=== PATIENT | female | born 1940 | race Caucasian/White ===

== ENCOUNTER 2016-11-02 09:04 | Inpatient (IN) | payer OTHER, MEDICARE ==
[2016-11-02 09:09] VITALS: BMI 34.9
--- NOTE | 2016-11-02 09:14 | PDOC ---
History of Present Illness - General History Source: Patient Exam Limitations: No Limitations <Lachelle Jones - Last Filed: 11/02/16 11:07> - General History Source: Patient, Family Exam Limitations: No Limitations - History of Present Illness Initial Comments: 11/02/16 09:43 The patient is a 76 year old female with a significant past medical history of CHF, and PAF on Coumadin, presenting to the Emergency Department with shortness of breath and cough for one week. The patients son reports that the patient was seen at her PCPs office on Friday for shortness of breath and cough when she was diagnosed with bronchitis and was prescribed antibiotics. The patient admits she has taken 3 days of antibiotics, though she has not taken any of the prescription today. The patients son reports that the patient has shortness of breath exacerbated by walking normally, though her shortness of breath has been worse over the past week. The patients son admits that the patient has orthopnea, and sleeps in a specially reclined chair, though she has not been able to sleep comfortably this past week. The patient admits that the cough is sometimes productive, producing phelgm. The patient denies any chest pain. The patient is compliant with her medications. The patient denies palpitations, chest pain, and diaphoresis. Patient denies fever, or chills. Patient denies nausea, vomiting, and diarrhea. Patient denies back pain, or neck pain. PCP: Dr. Jennings [phone] <Ibeth Lee - Last Filed: 11/02/16 11:12> - General Chief Complaint: Respiratory Stated Complaint: COUGH Time Seen by Provider: 11/02/16 09:13 Past History - Past Medical History Anemia: Yes Cardiac Disorders: Yes (A-FIB, CAD) CHF: Yes GI Disorders: Yes (gerd, hernia s/p repair) HTN: Yes Hypercholesterolemia: Yes - Surgical History Abdominal Surgery: Yes (HERNIA) Cholecystectomy: Yes - Psycho/Social/Smoking Cessation Hx Anxiety: No Suicidal Ideation: No Smoking History: Never smoked Have you smoked in the past 12 months: No Hx Alcohol Use: No Drug/Substance Use Hx: No Substance Use Type: None Hx Substance Use Treatment: No <Lachelle Jones - Last Filed: 11/02/16 11:07> <Ibeth Lee - Last Filed: 11/02/16 11:12> - Past Medical History Allergies/Adverse Reactions: Allergies Allergy/AdvReac Type Severity Reaction Status Date / Time ibuprofen [From Advil] Allergy Unknown Verified 11/02/16 09:06 Home Medications: Ambulatory Orders Diltiazem HCl [Diltiazem 24Hr ER] 120 mg PO BID 10/25/13 Lisinopril [Prinivil] 40 mg PO DAILY 07/01/15 Furosemide [Lasix -] 40 mg PO BID 07/23/15 Potassium Chloride [Klor-Con M10] 10 meq PO DAILY 08/31/16 Ranitidine [Zantac -] 150 mg PO BID 08/31/16 Ferrous Sulfate [Feosol] 325 mg PO BID 09/01/16 Folic Acid 800 mg PO DAILY 09/01/16 Acetaminophen [Tylenol .Regular Strength -] 650 mg PO Q4H PRN #0 tablet Atorvastatin Ca [Lipitor] 10 mg PO HS tablet 09/02/16 Bacitracin/Polymyxin Ointment [Polysporin Ointment -] 1 applic TP BID tube Isosorbide Mononitrate [Imdur -] 30 mg PO DAILY 09/02/16 Lactulose (Oral Use) [Cephulac -] 20 gm PO DAILY 09/02/16 Metoprolol Succinate [Toprol XL -] 25 mg PO DAILY 09/02/16 Warfarin Na [Coumadin -] 2.5 mg PO SuTh@1800 tablet 09/02/16 Warfarin Na [Coumadin -] 5 mg PO MoTuWeFrSa@1800 tablet 09/02/16 Albuterol Sulfate [Proair Respiclick] 90 mcg IH QID 11/02/16 Levofloxacin [Levaquin -] 500 mg PO DAILY 11/02/16 Review of Systems - Review of Systems Able to Perform ROS?: Yes Comments:: 11/02/16 09:43 GENERAL/CONSTITUTIONAL: No: fever, chills, weakness, loss of appetite. HEAD, EYES, EARS, NOSE AND THROAT: No: change in vision, ear pain, discharge, sore throat, throat swelling. CARDIOVASCULAR: No: chest pain, lightheadedness, palpitations, syncope RESPIRATORY: No: wheezing, hemoptysis, stridor. Present: + productive cough, + shortness of breath, + orthopnea (chronic) GASTROINTESTINAL: No: nausea, vomiting, abdominal cramping, diarrhea, rectal bleeding, constipation. GENITOURINARY: No: dysuria, hematuria, frequency, urgency, flank pain. MUSCULOSKELETAL: No: back pain, neck pain, joint pain, muscle swelling or pain SKIN: No: lesions, pallor, rash or easy bruising. NEUROLOGIC: No: headache, vertigo, paresthesias, weakness ENDOCRINE: No: unexplained weight gain or loss HEMATOLOGIC/LYMPHATIC: No: anemia, easy bleeding, swelling nodes <Ibeth Lee - Last Filed: 11/02/16 11:12> *Physical Exam - Vital Signs Last Vital Signs Temp Pulse Resp BP Pulse Ox 98.2 F 70 18 156/75 92 L 11/02/16 09:05 11/02/16 09:05 11/02/16 09:05 11/02/16 09:05 11/02/16 09:05 <Lachelle Jones - Last Filed: 11/02/16 11:07> - Vital Signs Last Vital Signs Temp Pulse Resp BP Pulse Ox 98.2 F 70 18 156/75 92 L 11/02/16 09:05 11/02/16 09:05 11/02/16 09:05 11/02/16 09:05 11/02/16 09:05 - Physical Exam Comments: 11/02/16 09:44 GENERAL: The patient is in no acute distress. HEAD: Normal with no signs of trauma. EYES: PERRLA, EOMI, sclera anicteric, conjunctiva clear. ENT: Ears normal, nares patent, oropharynx clear without exudates. Moist mucous membranes. NECK: Normal range of motion, supple without lymphadenopathy, JVD, or masses. LUNGS: Inspiratory and expiratory rhonchi in all bloom. No wheezes, and no crackles. HEART: Heart sounds difficult to appreciate due to diffuse rhonchi. ABDOMEN: Soft, nontender, normoactive bowel sounds. No guarding, no rebound. EXTREMITIES: No lower extremity edema. No pain to lower extremities. Normal range of motion. No clubbing or cyanosis. No erythema, or tenderness. NEUROLOGICAL: Cranial nerves II through XII grossly intact. Normal speech. No focal neurological deficits. MUSCULOSKELETAL: Back nontender to palpation, no CVA tenderness SKIN: Warm, Dry, normal turgor, no rashes or lesions noted. <Ibeth Lee - Last Filed: 11/02/16 11:12> Heart Score/ECG Review #1 ECG reviewed & interpreted by me at: 10:23 11/02/16 10:23 Twelve-lead EKG was performed and reviewed by me. Afib rate of 65. The axis is normal. The intervals are normal - QRS: 86ms, QTc:426ms. There are no ST elevations. Artifact at baseline. T wave flattening <Lachelle Jones - Last Filed: 11/02/16 11:07> ED Treatment Course - LABORATORY CBC & Chemistry Diagram: 11/02/16 09:36 11/02/16 09:36 <Lachelle Jones - Last Filed: 11/02/16 11:07> - LABORATORY CBC & Chemistry Diagram: 11/02/16 09:36 11/02/16 09:36 - RADIOLOGY Radiograph Interpretation: 11/02/16 11:11 Chest XRay: As reviewed by Dr. Riley Patel IMPRESSION: Minimal posterior blunting which may indicate some focal atelectasis and/or fluid at the left base. <Ibeth Lee - Last Filed: 11/02/16 11:12> Medical Decision Making - Medical Decision Making 11/02/16 09:14 A portion of this note was documented by scribe services under my direction. I have reviewed the details of the note, within reason, and agree with the documentation with the following case summary and management plan written by me. Nursing documentation reviewed and incorporated into medical decision making 11/02/16 09:55 This is a 76 yo F with a history of HTN, HLD, CHF, Afib on coumadin, Anemia who presents to the ER with a complaint of 1 week of congestion, cough and shortness of breath. At her baseline, this patient as difficulty walking short distances and is ambulatory 100ft and around her home Over the past week, her mobility significantly decreased due to congestion She was seen by her pmd in the office who started Levaquin and gave Albuterol This has not helped No fevers Cough is non productive Pt denies chest pain Pt is compliant with diuretic use 11/02/16 09:57 DD: Pneumonia, Bronchitis, reactive airways, CHF, ACS Will do labs, include cultures Will do CXR PA and Lateral Will re assess 11/02/16 10:59 Laboratory Tests 11/02/16 11/02/16 09:36 09:36 WBC 6.0 Hgb 13.4 D Hct 40.7 Plt Count 193 Neutrophils % 68.2 Lymphocytes % 17.6 Sodium 141 Potassium 3.4 L Carbon Dioxide 32 BUN 17 D Creatinine 0.7 Random Glucose 75 D Creatine Kinase 66 Troponin I < 0.02 CXR: cardiomegaly, possible posterior blunting 11/02/16 11:[address] Dobson He would like this patient admitted would like to add a consult for Aleksandar Also requests Lasix 11/02/16 11:08 <Lachelle Jones - Last Filed: 11/02/16 11:07> - Medical Decision Making 11/02/16 11:03 Dr. Jennings was called at his office at 11:02, was instructed to call his cell. Cell was called at [phone] at 11:03, Dr. Jennings spoke to Dr. Jones about the patient's care. <Ibeth Lee - Last Filed: 11/02/16 11:12> *DC/Admit/Observation/Transfer - Discharge Dispostion Admit: Yes <Lachelle Jones - Last Filed: 11/02/16 11:07> - Attestations Scribe Attestion: 11/02/16 09:44 Documentation prepared by Ibeth Lee, acting as medical director/head team physician for Lachelle Jones MD/DO. <Ibeth Lee - Last Filed: 11/02/16 11:12> Diagnosis at time of Disposition: Shortness of breath - Discharge Dispostion Condition at time of disposition: Stable - Referrals Referrals: Benson Jennings MD [Primary Care Provider] -
[2016-11-02] MEDS ORDERED: methylPREDNISolone NA SUCC 125 MG/2 ML VIAL IVPB ONE (09:26)
[2016-11-02] MEDS ORDERED: ALBUTEROL SO4 0.083% IH SOL 2.5 MG/3 ML VIAL.NEB. NEB ONE (09:26)
[2016-11-02] MEDS ORDERED: ALBUTEROL SO4 2.5/IPRATROPIUM 0.5 INH SOL 3 ML VIAL.NEB. NEB ONE (09:27)
[2016-11-02] MEDS ORDERED: methylPREDNISolone NA SUCC 125 MG/2 ML VIAL ONE (09:27)
[2016-11-02 09:50] LABS: BASOPHIL 0.7 % (0-2.0); EOSINOPHIL 1.8 % (0-4.5); MCH 31.5 pg (25.7-33.7); MCHC 32.8 g/dl (32.0-36.0); MEAN CELL VOLUME 95.9 fl (80-96); MEAN PLT VOLUME 7.7 fl (7.5-11.1); NEUTROPHILS 68.2 % (42.8-82.8); PLATELET COUNT 193 K/MM3 (134-434); RDW 16.7 % (11.6-15.6)
[2016-11-02 10:15] LABS: ALBUMIN 4.1 g/dl (3.4-5.0); ANION GAP 7 (8-16); BILIRUBIN,TOTAL 0.7 mg/dL (0.2-1.0); CO2 32 mmol/L (21-32); COCKROFT - GAULT 90.5845; CREATININE 0.7 mg/dL (0.55-1.02); GLUCOSE,RANDOM 75 mg/dL (74-106); SGOT/AST 12 U/L (15-37); SGPT/ALT 16 U/L (12-78); TOT PROT 7.9 g/dl (6.4-8.2)
[2016-11-02 10:18] LABS: ALK PHOS 80 U/L (45-117); TROPONIN I < 0.02 ng/ml (0.00-0.05)
[2016-11-02 11:02] LABS: INR 2.44 (0.82-1.09); PROTHROMBIN TIME (PATIENT) 27.3 SEC (9.98-11.88)
[2016-11-02] MEDS ORDERED: LEVOFLOXACIN 500 MG TABLET (FP) PO ONE (11:08)
[2016-11-02] MEDS ORDERED: FUROSEMIDE 40 MG/4 ML INJECTABLE VIAL IVPB ONE (11:09)
[2016-11-02] MEDS ORDERED: LEVOFLOXACIN 500 MG TABLET (FP) ONE (11:25)
[2016-11-02] MEDS ORDERED: FUROSEMIDE 40 MG/4 ML INJECTABLE VIAL ONE (11:25)
[2016-11-02] MEDS: ALBUTEROL SO4 0.083% IH SOL 2.5 MG/3 ML VIAL.NEB. NEB SCH ×3 (14:26→23:22)
[2016-11-02] MEDS ORDERED: POTASSIUM CHLORIDE TABS 20 MEQ TABLET.ER (FP) PO ONE (14:28)
[2016-11-02] MEDS: POTASSIUM CHLORIDE TABS 20 MEQ TABLET.ER (FP) PO SCH (14:31)
[2016-11-02] MEDS ORDERED: FUROSEMIDE 40 MG/4 ML INJECTABLE VIAL IVPUSH STA (15:06)
[2016-11-02] MEDS: WARFARIN NA 5 MG TABLET (UD) PO SCH (17:38)
[2016-11-02] MEDS: ISOSORBIDE MONONITRATE 30 MG TAB.SR.24H (FP) PO SCH (17:38)
[2016-11-02] MEDS ORDERED: CEFTRIAXONE 1 GM in DEXTROSE 5%-WATER - 50 ML IVPB SCH (18:00)
--- NOTE | 2016-11-02 21:54 | HP ---
Admitting History and Physical - Primary Care Physician PCP: Benson Jennings - Admission Chief Complaint: Severe SOB and wheezing History of Present Illness: Was seen in my office two days ago with cough and bilateral wheezing without fever and was started on Levaquin 500mg PO and Proair inhalor. But she did not improve and came to ED today and was treated with IV Levaquin and IV Solumedrol and inhalor and was admitted for further management. She is a known case with severe CHF due to severe Mitral regurg with AFIB and has been admitted in the past for CHF. History Source: Patient Limitations to Obtaining History: No Limitations - Past Medical History Cardiovascular: Yes: AFIB, HTN, Hyperlipdemia, Mitral Insufficiency, Pulmonary Hypertension Gastrointestinal: Yes: GERD, Hiatal Hernia, Other (abdominal pain mainly in upper abd related to intestinal adhesions) Hepatobiliary: Yes: Cholecystitis, Other (s/p cholecystectomy) Musculoskeletal: Yes: Chronic low back pain, Osteoarthritis ENT: Yes: Allergic Rhinitis - Past Surgical History Past Surgical History: Yes: None, Cholecystectomy, Colonoscopy, Hernia Repair - Advance Directives Advance Directives: Yes: Health Care Proxy - Smoking History Smoking history: Never smoked Have you smoked in the past 12 months: No - Alcohol/Substance Use Hx Alcohol Use: No History of Substance Use: reports: None - Social History Usual Living Arrangement: Yes: Alone ADL: Independent History of Recent Travel: No Home Medications - Allergies Allergies/Adverse Reactions: Allergies Allergy/AdvReac Type Severity Reaction Status Date / Time ibuprofen [From Advil] Allergy Unknown Verified 11/02/16 09:06 - Home Medications Home Medications: Ambulatory Orders Diltiazem HCl [Diltiazem 24Hr ER] 120 mg PO BID 10/25/13 Lisinopril [Prinivil] 40 mg PO DAILY 07/01/15 Furosemide [Lasix -] 40 mg PO BID 07/23/15 Potassium Chloride [Klor-Con M10] 10 meq PO DAILY 08/31/16 Ferrous Sulfate [Feosol] 325 mg PO BID 09/01/16 Folic Acid 800 mg PO DAILY 09/01/16 Acetaminophen [Tylenol .Regular Strength -] 650 mg PO Q4H PRN #0 tablet Atorvastatin Ca [Lipitor] 10 mg PO HS tablet 09/02/16 Isosorbide Mononitrate [Imdur -] 30 mg PO DAILY 09/02/16 Metoprolol Succinate [Toprol XL -] 25 mg PO DAILY 09/02/16 Warfarin Na [Coumadin -] 2.5 mg PO SuTh@1800 tablet 09/02/16 Warfarin Na [Coumadin -] 5 mg PO MoTuWeFrSa@1800 tablet 09/02/16 Albuterol Sulfate [Proair Respiclick] 90 mcg IH QID 11/02/16 Lactulose (Oral Use) [Cephulac -] 20 gm PO DAILY PRN 11/02/16 Levofloxacin [Levaquin -] 500 mg PO DAILY 11/02/16 Family Disease History - Family Disease History Family Disease History: Heart Disease: Father, Mother Review of Systems - Review of Systems Constitutional: reports: Weakness Eyes: reports: No Symptoms HENT: reports: No Symptoms Neck: reports: No Symptoms Cardiovascular: reports: Palpitations, Shortness of Breath Respiratory: reports: Cough, SOB, Wheezing Gastrointestinal: reports: Abdominal Pain Genitourinary: reports: No Symptoms Breasts: reports: No Symptoms Reported Musculoskeletal: reports: Back Pain, Joint Pain Neurological: reports: No Symptoms Endocrine: reports: No Symptoms Hematology/Lymphatic: reports: No Symptoms Psychiatric: reports: No Symptoms Physical Examination Vital Signs: Vital Signs Temperature 98.2 F 11/02/16 16:28 Pulse Rate 85 11/02/16 16:28 Respiratory Rate 22 11/02/16 17:00 Blood Pressure 169/85 11/02/16 16:28 O2 Sat by Pulse Oximetry (%) 96 11/02/16 17:00 Constitutional: Yes: Anxious, Moderate Distress Eyes: Yes: WNL, Conjunctiva Clear, EOM Intact HENT: Yes: WNL Neck: Yes: WNL Cardiovascular: Yes: Pulse Irregular, S1, S2, Varicosities Respiratory: Yes: On Nasal O2, Wheezes Gastrointestinal: Yes: Normal Bowel Sounds, Soft Renal/: Yes: WNL Musculoskeletal: Yes: Joint Stiffness Edema: Yes Edema: LLE: 2+, RLE: 2+ Peripheral Pulses WNL: Yes Neurological: Yes: Alert, Oriented, Cran Nerves II-XII Intact ...Motor Strength: WNL Psychiatric: Yes: Alert, Oriented Imaging - Results Chest X-ray: Image Reviewed Problem List - Problems (1) Hyperlipidemia Code(s): E78.5 - HYPERLIPIDEMIA, UNSPECIFIED (2) Hypertension Code(s): I10 - ESSENTIAL (PRIMARY) HYPERTENSION Qualifiers: Hypertension type: essential hypertension Qualified Code(s): I10 - Essential (primary) hypertension (3) Obesity (BMI 30-39.9) Code(s): E66.9 - OBESITY, UNSPECIFIED (4) Venous insufficiency Assessment/Plan: Moderate varicosities with stasis dermatitis Code(s): I87.2 - VENOUS INSUFFICIENCY (CHRONIC) (PERIPHERAL) (5) Acute asthmatic bronchitis Assessment/Plan: Bilateral wheezing and ronchi with moderate resp. distress Code(s): J45.909 - UNSPECIFIED ASTHMA, UNCOMPLICATED (6) Atrial fib/flutter, transient Code(s): FPL0234 - (7) Anticoagulated on Coumadin Code(s): Z51.81 - ENCOUNTER FOR THERAPEUTIC DRUG LEVEL MONITORING Z79.01 - TIMBER REPAIRER (CURRENT) USE OF ANTICOAGULANTS (8) Atrial fibrillation Assessment/Plan: HR well controlled Code(s): I48.91 - UNSPECIFIED ATRIAL FIBRILLATION Qualifiers: Atrial fibrillation type: chronic Qualified Code(s): I48.2 - Chronic atrial fibrillation (9) CHF (NYHA class II, ACC/AHA stage C) Assessment/Plan: Known case of severe MR with BNP of 2500 to cont. IV Lasix Code(s): I50.9 - HEART FAILURE, UNSPECIFIED Assessment/Plan Continue IV antibiotics with Rocephin and Zithromax Continue IV Solu-Medrol Continue bronchodilators, Continue IV Lasix.
[2016-11-02] MEDS: methylPREDNISolone NA SUCC 40 MG/1 ML VIAL IVPB SCH (21:57)
[2016-11-02] MEDS: LISINOPRIL 20 MG TABLET (FP) PO SCH (21:57)
[2016-11-03] MEDS: LACTULOSE 20 GM/30 ML UDC (FOR ORAL USE ONLY) PO ONE ×2 (00:21→00:30)
[2016-11-03] MEDS: methylPREDNISolone NA SUCC 40 MG/1 ML VIAL IVPB SCH ×4 (03:38→20:55)
[2016-11-03] MEDS: FUROSEMIDE 40 MG/4 ML INJECTABLE VIAL IVPUSH SCH ×2 (05:55→14:43)
[2016-11-03] MEDS: ALBUTEROL SO4 0.083% IH SOL 2.5 MG/3 ML VIAL.NEB. NEB SCH ×3 (06:12→17:28)
[2016-11-03] MEDS: ACETAMINOPHEN 325 MG TABLET (FP) PO PRN (07:21)
[2016-11-03 08:39] LABS: INR 2.64 (0.82-1.09); PROTHROMBIN TIME (PATIENT) 29.6 SEC (9.98-11.88)
[2016-11-03 09:00] LABS: ALBUMIN 3.7 g/dl (3.4-5.0); ALK PHOS 70 U/L (45-117); ANION GAP 7 (8-16); BILIRUBIN,TOTAL 0.8 mg/dL (0.2-1.0); CALCIUM 8.7 mg/dL (8.5-10.1); CO2 34 mmol/L (21-32); CREATININE 0.7 mg/dL (0.55-1.02); GLUCOSE,RANDOM 164 mg/dL (74-106); SGOT/AST 14 U/L (15-37); SGPT/ALT 18 U/L (12-78); TOT PROT 7.3 g/dl (6.4-8.2)
--- NOTE | 2016-11-03 09:01 | PN ---
Progress Note, Physician Chief Complaint: Coverage for Aleksandar. Well known to me from prior coverage, recent discharge for CHF 08/2016 at which time I covered her as well. 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 Denies fevers, chills. Denies chest pain or palps. + PND and orthopnea. Received IV Lasix yesterday with improvement in symptoms. - Current Medication List Current Medications: Active Medications Acetaminophen (Tylenol -) 650 mg PO Q4H PRN PRN Reason: FEVER OR PAIN Last Admin: 11/03/16 07:21 Dose: 650 mg Albuterol Sulfate (Ventolin 0.083% Nebulizer Soln -) 1 amp NEB QIDR [facility] Last Admin: 11/03/16 06:12 Dose: 1 amp Diltiazem HCl (Cardizem Cd -) 120 mg PO BID [facility] Last Admin: 11/02/16 22:39 Dose: 120 mg Furosemide (Lasix Injection -) 40 mg IVPUSH BID@0600,1400 [facility] Last Admin: 11/03/16 05:55 Dose: 40 mg Azithromycin (Zithromax 500mg Ivpb (Pre-Docked)) 250 mls @ 250 mls/hr IVPB DAILY [facility] Ceftriaxone Sodium (Rocephin 1gm Ivpb (Pre-Docked)) 50 mls @ 100 mls/hr IVPB DAILY [facility] Isosorbide Mononitrate (Imdur -) 30 mg PO DAILY [facility] Last Admin: 11/02/16 17:38 Dose: 30 mg Lisinopril (Prinivil) 20 mg PO BID [facility] Last Admin: 11/02/16 21:57 Dose: 20 mg Methylprednisolone Sodium Succinate (Solu-Medrol -) 40 mg IVPB Q6H-IV [facility] Last Admin: 11/03/16 03:38 Dose: 40 mg Potassium Chloride (K-Dur -) 20 meq PO DAILY [facility] Last Admin: 11/02/16 14:31 Dose: 20 meq Warfarin Sodium (Coumadin -) 5 mg PO DAILY@1800 [facility] Last Admin: 11/02/16 17:38 Dose: 5 mg - Objective Vital Signs: Vital Signs Temperature 98.6 F 11/03/16 06:00 Pulse Rate 90 11/03/16 06:00 Respiratory Rate 22 11/03/16 06:00 Blood Pressure 150/88 11/03/16 06:00 O2 Sat by Pulse Oximetry (%) 94 L 11/02/16 21:00 Constitutional: Yes: Calm Eyes: Yes: Conjunctiva Clear Neck: Yes: Trachea Midline Cardiovascular: Yes: Pulse Irregular Respiratory: Yes: Other (rales at bases bilaterally) Gastrointestinal: Yes: Soft Edema: Yes Edema: LLE: 2+ (venous stasis), RLE: 2+ (venous stasis) Neurological: Yes: Alert, Oriented ...Motor Strength: WNL Labs: INR, PTT INR 2.64 (0.82-1.09) H 11/03/16 05:55 Laboratory Tests 08/31/16 09/01/16 11/02/16 11:45 06:30 09:36 WBC 6.0 Hgb 13.4 D Hct 40.7 Plt Count 162 193 INR Sodium Potassium BUN Creatinine 0.6 Creat Clearance w eGFR ALT Alkaline Phosphatase Creatine Kinase Troponin I C-Reactive Protein B-Natriuretic Peptide Albumin 11/02/16 11/02/16 11/03/16 09:36 16:44 05:55 WBC Hgb Hct Plt Count INR 2.64 H Sodium 141 Potassium 3.4 L BUN 17 D Creatinine 0.7 Creat Clearance w eGFR > 60 ALT 16 Alkaline Phosphatase 80 Creatine Kinase 66 Troponin I < 0.02 C-Reactive Protein 1.8 H D B-Natriuretic Peptide 2572.60 H Albumin 4.1 - ....Imaging Chest X-ray: Report Reviewed, Image Reviewed EKG: Image Reviewed (AF at 65bpm w/ NSST changes) Other: Other (Echo: 08/2016 (see HPI) TELE: AF, with periods of RVR this AM into 140s, no pauses) Assessment/Plan IMP: Permanent AF, with RVR (analytical lab analyst rates are uncontrolled) Severe MR Chronic diastolic CHF, acute decompensation REC: 1. AF: rates suboptimally controlled -INR therapeutic, continue coumadin -Would add back Toprol XL 25 mg daily as LV function is normal, for added rate control. -If Toprol is not tolerated well for some reason, then can add digoxin 0.125mg daily -minimize use albuterol if possible 2. Severe, eccentric MR: -noted on TTE 08/2016 -Consider MEHNAZ and evaluation for MVR as outpatient 3. Chronic diastolic CHF: -acutely decompensated in setting of severe MR and AF rates which appear suboptimally controlled -Agree w/ IV Lasix -Lisinopril for afterload reduction -Aim for improved heart rate control either by adding back Toprol or dig -Continue tele -Would consider outpatient MEHNAZ and evaluation for MVR when euvolemic given frequent CHF decompensations.
[2016-11-03] MEDS ORDERED: PT OWN MED DRAWER 7, Y5N ONE (09:32)
[2016-11-03] MEDS: POTASSIUM CHLORIDE TABS 20 MEQ TABLET.ER (FP) PO SCH (09:38)
[2016-11-03] MEDS: LISINOPRIL 20 MG TABLET (FP) PO SCH ×2 (09:38→21:01)
[2016-11-03] MEDS: ISOSORBIDE MONONITRATE 30 MG TAB.SR.24H (FP) PO SCH (09:38)
[2016-11-03] MEDS: CEFTRIAXONE 50 ML IVPB SCH (09:39)
[2016-11-03] MEDS: AZITHROMYCIN IVPB 250 ML IVPB SCH (14:43)
--- NOTE | 2016-11-03 14:54 | CONSULT ---
Consult Consult Specialty:: Infectious Diseases Referred by:: Dr. Dobson Reason for Consultation:: Cough - History of Present Illness Chief Complaint: Cough,SOB History of Present Illness: Patient is a 76 year old female admitted with cough and SOB. She had been on PO Abx for a few days without improvement. She continued to have SOB, cough and the decision to admit her was made. - History Source History Provided By: Patient - Past Medical History Cardio/Vascular: Yes: AFIB, HTN, Hyperlipdemia, Mitral Insufficiency, Pulmonary Hypertension Gastrointestinal: Yes: GERD, Hiatal Hernia, Other (abdominal pain mainly in upper abd related to intestinal adhesions) Hepatobiliary: Yes: Cholecystitis, Other (s/p cholecystectomy) ...: No Musculoskeletal: Yes: Chronic low back pain, Osteoarthritis ENT: Yes: Allergic Rhinitis Endocrine: Yes: Hypothyroidism - Past Surgical History Past Surgical History: Yes: None, Cholecystectomy, Colonoscopy, Hernia Repair - Alcohol/Substance Use Hx Alcohol Use: No History of Substance Use: reports: None - Smoking History Smoking history: Never smoked Have you smoked in the past 12 months: No - Social History Usual Living Arrangement: With Spouse ADL: Independent History of Recent Travel: No Home Medications - Allergies Allergies/Adverse Reactions: Allergies Allergy/AdvReac Type Severity Reaction Status Date / Time ibuprofen [From Advil] Allergy Unknown Verified 11/02/16 09:06 - Home Medications Home Medications: Ambulatory Orders Diltiazem HCl [Diltiazem 24Hr ER] 120 mg PO BID 10/25/13 Lisinopril [Prinivil] 40 mg PO DAILY 07/01/15 Furosemide [Lasix -] 40 mg PO BID 07/23/15 Potassium Chloride [Klor-Con M10] 10 meq PO DAILY 08/31/16 Ferrous Sulfate [Feosol] 325 mg PO BID 09/01/16 Folic Acid 800 mg PO DAILY 09/01/16 Acetaminophen [Tylenol .Regular Strength -] 650 mg PO Q4H PRN #0 tablet Atorvastatin Ca [Lipitor] 10 mg PO HS tablet 09/02/16 Isosorbide Mononitrate [Imdur -] 30 mg PO DAILY 09/02/16 Metoprolol Succinate [Toprol XL -] 25 mg PO DAILY 09/02/16 Warfarin Na [Coumadin -] 2.5 mg PO SuTh@1800 tablet 09/02/16 Warfarin Na [Coumadin -] 5 mg PO MoTuWeFrSa@1800 tablet 09/02/16 Albuterol Sulfate [Proair Respiclick] 90 mcg IH QID 11/02/16 Lactulose (Oral Use) [Cephulac -] 20 gm PO DAILY PRN 11/02/16 Levofloxacin [Levaquin -] 500 mg PO DAILY 11/02/16 Family Disease History - Family Disease History Family Disease History: Heart Disease: Father, Mother Review of Systems - Review of Systems Constitutional: denies: Chills, Fever Respiratory: reports: Cough, SOB Physical Exam Vital Signs: Vital Signs Temperature 99.3 F 11/03/16 09:00 Pulse Rate 80 11/03/16 11:08 Respiratory Rate 22 11/03/16 09:00 Blood Pressure 128/66 11/03/16 09:00 O2 Sat by Pulse Oximetry (%) 95 11/03/16 11:08 Constitutional: Yes: Well Nourished Eyes: Yes: PERRL HENT: Yes: Normocephalic Neck: Yes: Supple Cardiovascular: Yes: Pulse Irregular Respiratory: Yes: Rhonchi, Wheezes Gastrointestinal: Yes: Normal Bowel Sounds Labs: CBC, BMP 11/03/16 05:55 Imaging - Results Chest X-ray: Report Reviewed Assessment/Plan Pt with Hx AF, HFpEF admitted with cough, SOB. Acute exacerbation Bronchitis Agree CTX + Azithromycin Treat total 7-10 days Seth c/s for fever > 101 Can transition to PO in 48-72 hrs
[2016-11-03] MEDS: WARFARIN NA 5 MG TABLET (UD) PO SCH (17:52)
--- NOTE | 2016-11-03 20:45 | PN ---
Progress Note, Physician History of Present Illness: Feels better but still with wheezing, sputum is less. Denies any chest pain or PND - Current Medication List Current Medications: Active Medications Acetaminophen (Tylenol -) 650 mg PO Q4H PRN PRN Reason: FEVER OR PAIN Last Admin: 11/03/16 07:21 Dose: 650 mg Albuterol Sulfate (Ventolin 0.083% Nebulizer Soln -) 1 amp NEB QIDR [facility] Last Admin: 11/03/16 17:28 Dose: 1 amp Diltiazem HCl (Cardizem Cd -) 120 mg PO BID [facility] Last Admin: 11/03/16 09:38 Dose: 120 mg Furosemide (Lasix Injection -) 40 mg IVPUSH BID@0600,1400 [facility] Last Admin: 11/03/16 14:43 Dose: 40 mg Azithromycin (Zithromax 500mg Ivpb (Pre-Docked)) 250 mls @ 250 mls/hr IVPB DAILY [facility] Last Admin: 11/03/16 14:43 Dose: 250 mls/hr Ceftriaxone Sodium (Rocephin 1gm Ivpb (Pre-Docked)) 50 mls @ 100 mls/hr IVPB DAILY [facility] Last Admin: 11/03/16 09:39 Dose: 100 mls/hr Isosorbide Mononitrate (Imdur -) 30 mg PO DAILY [facility] Last Admin: 11/03/16 09:38 Dose: 30 mg Lisinopril (Prinivil) 20 mg PO BID [facility] Last Admin: 11/03/16 09:38 Dose: 20 mg Methylprednisolone Sodium Succinate (Solu-Medrol -) 40 mg IVPB Q6H-IV [facility] Last Admin: 11/03/16 14:42 Dose: 40 mg Potassium Chloride (K-Dur -) 20 meq PO DAILY [facility] Last Admin: 11/03/16 09:38 Dose: 20 meq Warfarin Sodium (Coumadin -) 5 mg PO DAILY@1800 [facility] Last Admin: 11/03/16 17:52 Dose: 5 mg - Objective Vital Signs: Vital Signs Temperature 98.3 F 11/03/16 17:00 Pulse Rate 95 H 11/03/16 17:00 Respiratory Rate 20 11/03/16 17:00 Blood Pressure 137/70 11/03/16 17:00 O2 Sat by Pulse Oximetry (%) 95 11/03/16 11:08 Constitutional: Yes: Calm, Mild Distress Eyes: Yes: Conjunctiva Clear, EOM Intact HENT: Yes: WNL Neck: Yes: Supple Cardiovascular: Yes: Pulse Irregular, S1, S2 Respiratory: Yes: On Nasal O2, Rhonchi, Wheezes Gastrointestinal: Yes: Normal Bowel Sounds, Soft Genitourinary: Yes: WNL Musculoskeletal: Yes: Joint Stiffness Extremities: Yes: WNL Edema: No Peripheral Pulses WNL: Yes Integumentary: Yes: WNL Neurological: Yes: Alert, Oriented, Cran Nerves II-XII Intact ...Motor Strength: WNL Psychiatric: Yes: Alert, Oriented Labs: CBC, BMP 11/03/16 05:55 INR, PTT INR 2.64 (0.82-1.09) H 11/03/16 05:55 - ....Imaging Chest X-ray: Report Reviewed, Image Reviewed Problem List - Problems (1) Hyperlipidemia Code(s): E78.5 - HYPERLIPIDEMIA, UNSPECIFIED (2) Hypertension Code(s): I10 - ESSENTIAL (PRIMARY) HYPERTENSION Qualifiers: Hypertension type: essential hypertension Qualified Code(s): I10 - Essential (primary) hypertension (3) Obesity (BMI 30-39.9) Code(s): E66.9 - OBESITY, UNSPECIFIED (4) Venous insufficiency Code(s): I87.2 - VENOUS INSUFFICIENCY (CHRONIC) (PERIPHERAL) (5) Acute asthmatic bronchitis Assessment/Plan: Seen by Dr.Bonoan BABIN who concurs with ABCs coverage. Continues to have wheezes and ronchi Code(s): J45.909 - UNSPECIFIED ASTHMA, UNCOMPLICATED (6) Atrial fib/flutter, transient Code(s): [id number] - (7) Anticoagulated on Coumadin Code(s): Z51.81 - ENCOUNTER FOR THERAPEUTIC DRUG LEVEL MONITORING Z79.01 - LEAD [employer]CTION [employer]PERVISOR (CURRENT) USE OF ANTICOAGULANTS (8) Atrial fibrillation Assessment/Plan: HR well controlled with DiltiazemCD and INR therapeutic Code(s): I48.91 - UNSPECIFIED ATRIAL FIBRILLATION Qualifiers: Atrial fibrillation type: chronic Qualified Code(s): I48.2 - Chronic atrial fibrillation (9) CHF (NYHA class II, ACC/AHA stage C) Assessment/Plan: Chest Xray shows severe cardiomegaly but no congestion BNP markedly elevated to 2500 Code(s): I50.9 - HEART FAILURE, UNSPECIFIED Assessment/Plan Cultures are negative so far, will continue IV steroids, IV Lasix. Will continue IV Rocephin and Zithromax
[2016-11-04] MEDS: methylPREDNISolone NA SUCC 40 MG/1 ML VIAL IVPB SCH ×4 (02:27→21:41)
[2016-11-04] MEDS: FUROSEMIDE 40 MG/4 ML INJECTABLE VIAL IVPUSH SCH ×2 (06:38→14:20)
[2016-11-04] MEDS: ALBUTEROL SO4 0.083% IH SOL 2.5 MG/3 ML VIAL.NEB. NEB SCH ×4 (06:43→18:35)
[2016-11-04] MEDS: ISOSORBIDE MONONITRATE 30 MG TAB.SR.24H (FP) PO SCH (09:52)
[2016-11-04] MEDS: POTASSIUM CHLORIDE TABS 20 MEQ TABLET.ER (FP) PO SCH (09:52)
[2016-11-04] MEDS: LISINOPRIL 20 MG TABLET (FP) PO SCH ×2 (09:52→21:41)
[2016-11-04] MEDS: AZITHROMYCIN IVPB 250 ML IVPB SCH (09:53)
[2016-11-04] MEDS: CEFTRIAXONE 50 ML IVPB SCH (09:53)
--- NOTE | 2016-11-04 12:05 | EKG ---
Test Reason : Blood Pressure : / mmHG Vent. Rate : 065 BPM Atrial Rate : 234 BPM P-R Int : 000 ms QRS Dur : 086 ms QT Int : 410 ms P-R-T Axes : 000 087 085 degrees QTc Int : 426 ms ATRIAL FIBRILLATION NONSPECIFIC ST AND T WAVE ABNORMALITY ABNORMAL ECG WHEN COMPARED WITH ECG OF 31-AUG-2016 11:45, T WAVE VARIATION Confirmed by MARCE CLAUDIO MD ([id number]) on 11/04/2016 12:05:07 PM Referred By: Confirmed By:MARCE CLAUDIO MD
--- NOTE | 2016-11-04 13:09 | PN ---
Progress Note, Physician History of Present Illness: The patient is a 76 year old female with a significant past medical history of CHF, and PAF on Coumadin, presenting to the Emergency Department with shortness of breath and cough for one week. The patients son reports that the patient was seen at her PCPs office on Friday for shortness of breath and cough when she was diagnosed with bronchitis and was prescribed antibiotics. The patient admits she has taken 3 days of antibiotics, though she has not taken any of the prescription today. The patients son reports that the patient has shortness of breath exacerbated by walking normally, though her shortness of breath has been worse over the past week. The patients son admits that the patient has orthopnea, and sleeps in a specially reclined chair, though she has not been able to sleep comfortably this past week. The patient admits that the cough is sometimes productive, producing phelgm. The patient denies any chest pain. The patient is compliant with her medications. The patient denies palpitations, chest pain, and diaphoresis. Patient denies fever, or chills. Patient denies nausea, vomiting, and diarrhea. Patient denies back pain, or neck pain. [facility] coronary angiogram 06/2015: luminal irregularities of LAD, LCx, RCA Rt lower extremity angiogram 06/2015: Rt common femoral, right superficial femoral, and right popliteal arteries have 30% stenoses. Medical history: Moderately severe mitral regurgitation HTN obesity Atrial fibrillation hyperlipidemia GERD iron-deficiency anemia - Current Medication List Current Medications: Active Medications Acetaminophen (Tylenol -) 650 mg PO Q4H PRN PRN Reason: FEVER OR PAIN Last Admin: 11/03/16 07:21 Dose: 650 mg Albuterol Sulfate (Ventolin 0.083% Nebulizer Soln -) 1 amp NEB QIDR [facility] Last Admin: 11/04/16 12:05 Dose: 1 amp Diltiazem HCl (Cardizem Cd -) 120 mg PO BID [facility] Last Admin: 11/04/16 09:52 Dose: 120 mg Furosemide (Lasix Injection -) 40 mg IVPUSH BID@0600,1400 [facility] Last Admin: 11/04/16 06:38 Dose: 40 mg Azithromycin (Zithromax 500mg Ivpb (Pre-Docked)) 250 mls @ 250 mls/hr IVPB DAILY [facility] Last Admin: 11/04/16 09:53 Dose: 250 mls/hr Ceftriaxone Sodium (Rocephin 1gm Ivpb (Pre-Docked)) 50 mls @ 100 mls/hr IVPB DAILY [facility] Last Admin: 11/04/16 09:53 Dose: 100 mls/hr Isosorbide Mononitrate (Imdur -) 30 mg PO DAILY [facility] Last Admin: 11/04/16 09:52 Dose: 30 mg Lisinopril (Prinivil) 20 mg PO BID [facility] Last Admin: 11/04/16 09:52 Dose: 20 mg Methylprednisolone Sodium Succinate (Solu-Medrol -) 40 mg IVPB Q6H-IV [facility] Last Admin: 11/04/16 09:52 Dose: 40 mg Potassium Chloride (K-Dur -) 20 meq PO DAILY [facility] Last Admin: 11/04/16 09:52 Dose: 20 meq Warfarin Sodium (Coumadin -) 5 mg PO DAILY@1800 [facility] Last Admin: 11/03/16 17:52 Dose: 5 mg - Objective Vital Signs: Vital Signs Temperature 98.6 F 11/04/16 09:00 Pulse Rate 87 11/04/16 09:00 Respiratory Rate 20 11/04/16 09:00 Blood Pressure 138/74 11/04/16 09:00 O2 Sat by Pulse Oximetry (%) 92 L 11/04/16 09:00 Eyes: Yes: WNL, Conjunctiva Clear, EOM Intact HENT: Yes: WNL, Atraumatic, Normocephalic Neck: Yes: WNL, Supple, Trachea Midline Cardiovascular: Yes: Pulse Irregular, Murmur, S1, S2 Respiratory: Yes: WNL, Regular, CTA Bilaterally Gastrointestinal: Yes: WNL, Normal Bowel Sounds Genitourinary: Yes: WNL Musculoskeletal: Yes: WNL Extremities: Yes: WNL Edema: Yes Integumentary: Yes: WNL Neurological: Yes: WNL, Alert, Oriented ...Motor Strength: WNL Psychiatric: Yes: WNL Labs: CBC, BMP 11/03/16 05:55 INR, PTT INR 2.64 (0.82-1.09) H 11/03/16 05:55 Laboratory Tests 11/02/16 11/02/16 11/02/16 09:36 09:36 09:37 WBC 6.0 RBC 4.24 Hgb 13.4 D Hct 40.7 MCV 95.9 MCHC 32.8 RDW 16.7 H Plt Count 193 MPV 7.7 Neutrophils % 68.2 Lymphocytes % 17.6 Monocytes % 11.7 H Eosinophils % 1.8 Basophils % 0.7 INR 2.44 H Sodium 141 Potassium 3.4 L Chloride 102 Carbon Dioxide 32 Anion Gap 7 L BUN 17 D Creatinine 0.7 Creat Clearance w eGFR > 60 Random Glucose 75 D Calcium 9.0 Total Bilirubin 0.7 D AST 12 L ALT 16 Alkaline Phosphatase 80 Creatine Kinase 66 Troponin I < 0.02 C-Reactive Protein B-Natriuretic Peptide 2572.60 H Total Protein 7.9 Albumin 4.1 11/02/16 11/03/16 11/03/16 16:44 05:55 05:55 WBC RBC Hgb Hct MCV MCHC RDW Plt Count MPV Neutrophils % Lymphocytes % Monocytes % Eosinophils % Basophils % INR 2.64 H Sodium 142 Potassium 3.7 Chloride 101 Carbon Dioxide 34 H Anion Gap 7 L BUN 17 Creatinine 0.7 Creat Clearance w eGFR > 60 Random Glucose 164 H D Calcium 8.7 Total Bilirubin 0.8 AST 14 L ALT 18 Alkaline Phosphatase 70 Creatine Kinase Troponin I C-Reactive Protein 1.8 H D B-Natriuretic Peptide Total Protein 7.3 Albumin 3.7 Problem List - Problems (1) Acute asthmatic bronchitis Code(s): J45.909 - UNSPECIFIED ASTHMA, UNCOMPLICATED (2) Atrial fib/flutter, transient Code(s): QGD6229 - (3) Shortness of breath Code(s): R06.02 - SHORTNESS OF BREATH (4) Anemia Code(s): D64.9 - ANEMIA, UNSPECIFIED Qualifiers: Anemia type: unspecified type Qualified Code(s): D64.9 - Anemia, unspecified (5) Ankle pain, right Code(s): M25.571 - PAIN IN RIGHT ANKLE AND JOINTS OF RIGHT FOOT Qualifiers: Chronicity: unspecified Qualified Code(s): M25.571 - Pain in right ankle and joints of right foot (6) Anticoagulated on Coumadin Code(s): Z51.81 - ENCOUNTER FOR THERAPEUTIC DRUG LEVEL MONITORING Z79.01 - MCC (CURRENT) USE OF ANTICOAGULANTS (7) Atrial fibrillation Code(s): I48.91 - UNSPECIFIED ATRIAL FIBRILLATION Qualifiers: Atrial fibrillation type: chronic Qualified Code(s): I48.2 - Chronic atrial fibrillation (8) CHF (NYHA class II, ACC/AHA stage C) Code(s): I50.9 - HEART FAILURE, UNSPECIFIED (9) Congestive heart failure (CHF) Code(s): I50.9 - HEART FAILURE, UNSPECIFIED Qualifiers: Congestive heart failure type: systolic Congestive heart failure chronicity: acute on chronic Qualified Code(s): I50.23 - Acute on chronic systolic (congestive) heart failure (10) Hematoma following percutaneous transluminal coronary angioplasty Code(s): I97.610 - POSTPROC HEMOR OF A CIRC SYS ORG FOLLOWING A CARDIAC CATH (11) Hyperlipidemia Code(s): E78.5 - HYPERLIPIDEMIA, UNSPECIFIED (12) Hypertension Code(s): I10 - ESSENTIAL (PRIMARY) HYPERTENSION Qualifiers: Hypertension type: essential hypertension Qualified Code(s): I10 - Essential (primary) hypertension (13) Obesity (BMI 30-39.9) Code(s): E66.9 - OBESITY, UNSPECIFIED (14) Pre-syncope Code(s): R55 - SYNCOPE AND COLLAPSE (15) Stasis ulcer of right lower extremity Code(s): I83.019 - VARICOSE VEINS OF RIGHT LOWER EXTREMITY W ULCER OF UNSP SITE (16) Venous insufficiency Code(s): I87.2 - VENOUS INSUFFICIENCY (CHRONIC) (PERIPHERAL) Assessment/Plan ch pna/bronchitis af severe mr plan agree with abx steroids and lasix cont telemetry will f/u
[2016-11-04 16:19] LABS: PROTHROMBIN TIME (PATIENT) 48.7 SEC (9.98-11.88)
[2016-11-04 16:25] LABS: INR 4.3 (0.82-1.09)
[2016-11-04] MEDS: WARFARIN NA 5 MG TABLET (UD) PO SCH (17:49)
--- NOTE | 2016-11-04 20:33 | PN ---
Progress Note, Physician History of Present Illness: Feels better with less wheezing, cough is less - Current Medication List Current Medications: Active Medications Acetaminophen (Tylenol -) 650 mg PO Q4H PRN PRN Reason: FEVER OR PAIN Last Admin: 11/03/16 07:21 Dose: 650 mg Albuterol Sulfate (Ventolin 0.083% Nebulizer Soln -) 1 amp NEB QIDR [facility] Last Admin: 11/04/16 18:35 Dose: 1 amp Diltiazem HCl (Cardizem Cd -) 120 mg PO BID [facility] Last Admin: 11/04/16 09:52 Dose: 120 mg Furosemide (Lasix Injection -) 40 mg IVPUSH BID@0600,1400 [facility] Last Admin: 11/04/16 14:20 Dose: 40 mg Azithromycin (Zithromax 500mg Ivpb (Pre-Docked)) 250 mls @ 250 mls/hr IVPB DAILY [facility] Last Admin: 11/04/16 09:53 Dose: 250 mls/hr Ceftriaxone Sodium (Rocephin 1gm Ivpb (Pre-Docked)) 50 mls @ 100 mls/hr IVPB DAILY [facility] Last Admin: 11/04/16 09:53 Dose: 100 mls/hr Isosorbide Mononitrate (Imdur -) 30 mg PO DAILY [facility] Last Admin: 11/04/16 09:52 Dose: 30 mg Lisinopril (Prinivil) 20 mg PO BID [facility] Last Admin: 11/04/16 09:52 Dose: 20 mg Methylprednisolone Sodium Succinate (Solu-Medrol -) 40 mg IVPB Q12H [facility] Potassium Chloride (K-Dur -) 20 meq PO DAILY [facility] Last Admin: 11/04/16 09:52 Dose: 20 meq - Objective Vital Signs: Vital Signs Temperature 98.0 F 11/04/16 18:00 Pulse Rate 87 11/04/16 18:00 Respiratory Rate 19 11/04/16 18:00 Blood Pressure 135/69 11/04/16 18:00 O2 Sat by Pulse Oximetry (%) 96 11/04/16 13:32 Constitutional: Yes: Well Nourished, Calm Eyes: Yes: WNL, Conjunctiva Clear, EOM Intact HENT: Yes: WNL Neck: Yes: WNL Cardiovascular: Yes: Pulse Irregular, S1, S2 Respiratory: Yes: Regular, CTA Bilaterally Gastrointestinal: Yes: Normal Bowel Sounds, Soft Genitourinary: Yes: WNL Breast(s): Yes: WNL Musculoskeletal: Yes: Back Pain Extremities: Yes: WNL Edema: No Peripheral Pulses WNL: Yes Integumentary: Yes: WNL Neurological: Yes: Alert, Oriented ...Motor Strength: WNL Psychiatric: Yes: Alert, Oriented Labs: CBC, BMP 11/03/16 05:55 INR, PTT INR 4.30 (0.82-1.09) H* D 11/04/16 15:40 - ....Imaging EKG: Report Reviewed, Image Reviewed Problem List - Problems (1) Hyperlipidemia Code(s): E78.5 - HYPERLIPIDEMIA, UNSPECIFIED (2) Hypertension Assessment/Plan: Hypertension under good control Code(s): I10 - ESSENTIAL (PRIMARY) HYPERTENSION Qualifiers: Hypertension type: essential hypertension Qualified Code(s): I10 - Essential (primary) hypertension (3) Obesity (BMI 30-39.9) Code(s): E66.9 - OBESITY, UNSPECIFIED (4) Venous insufficiency Code(s): I87.2 - VENOUS INSUFFICIENCY (CHRONIC) (PERIPHERAL) (5) Acute asthmatic bronchitis Assessment/Plan: Wheezing has improved with steroids and [id number] and will taper steroids Code(s): J45.909 - UNSPECIFIED ASTHMA, UNCOMPLICATED (6) Atrial fib/flutter, transient Code(s): AUC6077 - (7) Anticoagulated on Coumadin Code(s): Z51.81 - ENCOUNTER FOR THERAPEUTIC DRUG LEVEL MONITORING Z79.01 - JAIL (CURRENT) USE OF ANTICOAGULANTS (8) Atrial fibrillation Assessment/Plan: HR well controlled Code(s): I48.91 - UNSPECIFIED ATRIAL FIBRILLATION Qualifiers: Atrial fibrillation type: chronic Qualified Code(s): I48.2 - Chronic atrial fibrillation (9) CHF (NYHA class II, ACC/AHA stage C) Code(s): I50.9 - HEART FAILURE, UNSPECIFIED Assessment/Plan Will taper steroids as wheezing has improved, Continue antibiotics Switch to PO Lasix
[2016-11-05] MEDS: ALBUTEROL SO4 0.083% IH SOL 2.5 MG/3 ML VIAL.NEB. NEB SCH ×5 (00:02→23:17)
[2016-11-05] MEDS: ACETAMINOPHEN 325 MG TABLET (FP) PO PRN (04:02)
[2016-11-05] MEDS: FUROSEMIDE 40 MG TABLET (FP) PO SCH ×2 (06:33→14:20)
[2016-11-05 07:57] LABS: MCH 31.5 pg (25.7-33.7); MCHC 33.1 g/dl (32.0-36.0); MEAN CELL VOLUME 95.3 fl (80-96); MEAN PLT VOLUME 7.5 fl (7.5-11.1); NEUTROPHILS 91.1 % (42.8-82.8); PLATELET COUNT 212 K/MM3 (134-434); RDW 16.2 % (11.6-15.6); WHITE BLOOD COUNT 7.6 K/mm3 (4.0-10.0)
[2016-11-05 08:22] LABS: ALBUMIN 3.7 g/dl (3.4-5.0); ANION GAP 13 (8-16); CALCIUM 8.8 mg/dL (8.5-10.1); CO2 30 mmol/L (21-32); CREATININE 0.8 mg/dL (0.55-1.02); GLUCOSE,RANDOM 138 mg/dL (74-106); SGOT/AST 19 U/L (15-37); SGPT/ALT 28 U/L (12-78)
[2016-11-05 08:25] LABS: ALK PHOS 68 U/L (45-117); BILIRUBIN,TOTAL 0.7 mg/dL (0.2-1.0); TOT PROT 7.6 g/dl (6.4-8.2)
[2016-11-05] MEDS: methylPREDNISolone NA SUCC 40 MG/1 ML VIAL IVPB SCH ×2 (08:46→21:20)
[2016-11-05] MEDS: ISOSORBIDE MONONITRATE 30 MG TAB.SR.24H (FP) PO SCH (09:44)
[2016-11-05] MEDS: LISINOPRIL 20 MG TABLET (FP) PO SCH ×2 (09:44→21:19)
[2016-11-05] MEDS: POTASSIUM CHLORIDE TABS 20 MEQ TABLET.ER (FP) PO SCH (09:44)
[2016-11-05] MEDS: CEFTRIAXONE 50 ML IVPB SCH (09:45)
[2016-11-05] MEDS: AZITHROMYCIN IVPB 250 ML IVPB SCH (09:45)
[2016-11-05 09:51] LABS: INR 3.53 (0.82-1.09); PROTHROMBIN TIME (PATIENT) 39.8 SEC (9.98-11.88)
--- NOTE | 2016-11-05 14:07 | PN ---
Progress Note, Physician Chief Complaint: Pt feels better; her legs are no longer swollen, though right LE is slurry tank tender ; no chest pain or dyspnea; still with cough, trying to bring up phlegm; afebrile; WBCs WNL. History of Present Illness: The patient is a 76 year old white female (trevor Cole), with a significant past medical history of diastolic CHF, PAF (on Coumadin), presenting to the Emergency Department with shortness of breath and cough for one week. The patients son reports that the patient was seen at her PCPs office on Friday for shortness of breath and cough when she was diagnosed with bronchitis and was prescribed antibiotics. The patient admits she has taken 3 days of antibiotics, though she has not taken any of the prescription today. The patients son reports that the patient has shortness of breath exacerbated by walking normally, though her shortness of breath has been worse over the past week. The patients son admits that the patient has orthopnea, and sleeps in a specially reclined chair, though she has not been able to sleep comfortably this past week. The patient admits that the cough is sometimes productive, producing phelgm. The patient denies any chest pain. The patient is compliant with her medications. The patient denies palpitations, chest pain, and diaphoresis. Patient denies fever, or chills. Patient denies nausea, vomiting, and diarrhea. Patient denies back pain, or neck pain. PCP: Dr. Jennings [phone] - Current Medication List Current Medications: Active Medications Acetaminophen (Tylenol -) 650 mg PO Q4H PRN PRN Reason: FEVER OR PAIN Last Admin: 11/05/16 04:02 Dose: 650 mg Albuterol Sulfate (Ventolin 0.083% Nebulizer Soln -) 1 amp NEB QIDR [facility] Last Admin: 11/05/16 11:59 Dose: 1 amp Diltiazem HCl (Cardizem Cd -) 120 mg PO BID [facility] Last Admin: 11/05/16 09:44 Dose: 120 mg Furosemide (Lasix -) 40 mg PO BID@0600,1400 [facility] Last Admin: 11/05/16 06:33 Dose: 40 mg Azithromycin (Zithromax 500mg Ivpb (Pre-Docked)) 250 mls @ 250 mls/hr IVPB DAILY [facility] Last Admin: 11/05/16 09:45 Dose: 250 mls/hr Ceftriaxone Sodium (Rocephin 1gm Ivpb (Pre-Docked)) 50 mls @ 100 mls/hr IVPB DAILY [facility] Last Admin: 11/05/16 09:45 Dose: 100 mls/hr Isosorbide Mononitrate (Imdur -) 30 mg PO DAILY [facility] Last Admin: 11/05/16 09:44 Dose: 30 mg Lisinopril (Prinivil) 20 mg PO BID [facility] Last Admin: 11/05/16 09:44 Dose: 20 mg Methylprednisolone Sodium Succinate (Solu-Medrol -) 40 mg IVPB BID@0800,1999 [facility] Last Admin: 11/05/16 08:46 Dose: 40 mg Potassium Chloride (K-Dur -) 20 meq PO DAILY [facility] Last Admin: 11/05/16 09:44 Dose: 20 meq - Objective Vital Signs: Vital Signs Temperature 98 F 11/05/16 10:00 Pulse Rate 96 H 11/05/16 11:58 Respiratory Rate 18 11/05/16 10:00 Blood Pressure 135/77 11/05/16 10:00 O2 Sat by Pulse Oximetry (%) 94 L 11/05/16 11:58 Constitutional: Yes: Calm Eyes: Yes: WNL HENT: Yes: WNL Neck: Yes: WNL Cardiovascular: Yes: Pulse Irregular Respiratory: Yes: Regular Gastrointestinal: Yes: Soft ...Rectal Exam: Yes: Deferred Genitourinary: No: Anuria Musculoskeletal: Yes: Muscle Weakness Extremities: Yes: Cool Edema: Yes Edema: LLE: Trace, RLE: Trace Peripheral Pulses WNL: Yes Integumentary: Yes: Venous Stasis Changes Neurological: Yes: Alert, Oriented, Weakness Psychiatric: Yes: WNL Labs: CBC, BMP 11/05/16 06:55 11/05/16 06:55 INR, PTT INR 3.53 (0.82-1.09) H 11/05/16 06:55 Abnormal Lab Results 11/05/16 11/05/16 11/05/16 06:55 06:55 06:55 RDW 16.2 H Neutrophils % 91.1 H D Lymphocytes % 4.6 L D INR 3.53 H BUN 33 H D Random Glucose 138 H - ....Imaging Chest X-ray: Image Reviewed (no acute pathology) Problem List - Problems (1) Acute asthmatic bronchitis Assessment/Plan: On solumedrol and Ventolin. Code(s): J45.909 - UNSPECIFIED ASTHMA, UNCOMPLICATED (2) Acute on chronic diastolic (congestive) heart failure Assessment/Plan: On diltiazem CD bid (HTN; CHF; AF), lisinopril. Furosemide decreased to 20 mg bid (rising BUN; no JVD; no acute pathology on CXR ). F/u BUN/Cr, electrolytes (on PO K+: 3.6 today; furosedmide now decreased; on ACEI), daily weight, Is and Os. Code(s): I50.33 - ACUTE ON CHRONIC DIASTOLIC (CONGESTIVE) HEART FAILURE (3) Anemia Code(s): D64.9 - ANEMIA, UNSPECIFIED Qualifiers: Anemia type: unspecified type Qualified Code(s): D64.9 - Anemia, unspecified (4) Atrial fibrillation Assessment/Plan: on diltiazem for HR. On warfarin (held until INR falls below 3.0). Code(s): I48.91 - UNSPECIFIED ATRIAL FIBRILLATION Qualifiers: Atrial fibrillation type: chronic Qualified Code(s): I48.2 - Chronic atrial fibrillation (5) Shortness of breath Code(s): R06.02 - SHORTNESS OF BREATH (6) Hyperlipidemia Code(s): E78.5 - HYPERLIPIDEMIA, UNSPECIFIED (7) Hypertension Code(s): I10 - ESSENTIAL (PRIMARY) HYPERTENSION Qualifiers: Hypertension type: essential hypertension Qualified Code(s): I10 - Essential (primary) hypertension (8) Venous insufficiency Code(s): I87.2 - VENOUS INSUFFICIENCY (CHRONIC) (PERIPHERAL) (9) Stasis ulcer of left lower extremity Code(s): I83.029 - VARICOSE VEINS OF LEFT LOWER EXTREMITY W ULCER OF UNSP SITE
--- NOTE | 2016-11-05 20:00 | PN ---
Progress Note, Physician History of Present Illness: Continues to have persistent cough and started wheezing again. - Current Medication List Current Medications: Active Medications Acetaminophen (Tylenol -) 650 mg PO Q4H PRN PRN Reason: FEVER OR PAIN Last Admin: 11/05/16 04:02 Dose: 650 mg Albuterol Sulfate (Ventolin 0.083% Nebulizer Soln -) 1 amp NEB QIDR [facility] Last Admin: 11/05/16 17:10 Dose: 1 amp Diltiazem HCl (Cardizem Cd -) 120 mg PO BID [facility] Last Admin: 11/05/16 09:44 Dose: 120 mg Furosemide (Lasix -) 20 mg PO BID@0600,1400 [facility] Azithromycin (Zithromax 500mg Ivpb (Pre-Docked)) 250 mls @ 250 mls/hr IVPB DAILY [facility] Last Admin: 11/05/16 09:45 Dose: 250 mls/hr Ceftriaxone Sodium (Rocephin 1gm Ivpb (Pre-Docked)) 50 mls @ 100 mls/hr IVPB DAILY [facility] Last Admin: 11/05/16 09:45 Dose: 100 mls/hr Isosorbide Mononitrate (Imdur -) 30 mg PO DAILY [facility] Last Admin: 11/05/16 09:44 Dose: 30 mg Lactulose (Cephulac (Oral Use)) 20 gm PO DAILY PRN PRN Reason: CONSTIPATION Lisinopril (Prinivil) 20 mg PO BID [facility] Last Admin: 11/05/16 09:44 Dose: 20 mg Methylprednisolone Sodium Succinate (Solu-Medrol -) 40 mg IVPB BID@0800,2000 [facility] Last Admin: 11/05/16 08:46 Dose: 40 mg Pneumococcal Polyvalent Vaccine (Pneumovax -) 0.5 ml SQ .ONCE ONE Stop: 11/06/16 10:48 Potassium Chloride (K-Dur -) 20 meq PO DAILY [facility] Last Admin: 11/05/16 09:44 Dose: 20 meq - Objective Vital Signs: Vital Signs Temperature 97.6 F 11/05/16 15:07 Pulse Rate 89 11/05/16 15:07 Respiratory Rate 18 11/05/16 15:07 Blood Pressure 142/72 11/05/16 15:07 O2 Sat by Pulse Oximetry (%) 94 L 11/05/16 11:58 Constitutional: Yes: Calm, Mild Distress Eyes: Yes: WNL, Conjunctiva Clear, EOM Intact HENT: Yes: WNL Neck: Yes: WNL, Supple, Trachea Midline Cardiovascular: Yes: Pulse Irregular, S2 Respiratory: Yes: Rhonchi, Wheezes Gastrointestinal: Yes: Normal Bowel Sounds, Soft Genitourinary: Yes: WNL Musculoskeletal: Yes: Joint Stiffness Extremities: Yes: Erythema Edema: No Peripheral Pulses WNL: Yes Integumentary: Yes: WNL Neurological: Yes: Alert, Oriented, Cran Nerves II-XII Intact ...Motor Strength: WNL Psychiatric: Yes: Alert, Oriented Labs: CBC, BMP 11/05/16 06:55 11/05/16 06:55 INR, PTT INR 3.53 (0.82-1.09) H 11/05/16 06:55 Problem List - Problems (1) Hyperlipidemia Code(s): E78.5 - HYPERLIPIDEMIA, UNSPECIFIED (2) Hypertension Code(s): I10 - ESSENTIAL (PRIMARY) HYPERTENSION Qualifiers: Hypertension type: essential hypertension Qualified Code(s): I10 - Essential (primary) hypertension (3) Obesity (BMI 30-39.9) Code(s): E66.9 - OBESITY, UNSPECIFIED (4) Venous insufficiency Code(s): I87.2 - VENOUS INSUFFICIENCY (CHRONIC) (PERIPHERAL) (5) Acute asthmatic bronchitis Assessment/Plan: Continues to have wheezing and ronchi inspite of IV steroids and inhalation and antibiotics Code(s): J45.909 - UNSPECIFIED ASTHMA, UNCOMPLICATED (6) Atrial fib/flutter, transient Code(s): [id number] - (7) Anticoagulated on Coumadin Code(s): Z51.81 - ENCOUNTER FOR THERAPEUTIC DRUG LEVEL MONITORING Z79.01 - [employer]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 Will consult pulmonary.
[2016-11-06] MEDS: ALBUTEROL SO4 0.083% IH SOL 2.5 MG/3 ML VIAL.NEB. NEB SCH (06:20)
[2016-11-06] MEDS: FUROSEMIDE 20 MG TABLET (FP) PO SCH ×2 (06:21→15:51)
[2016-11-06 08:18] LABS: INR 2.67 (0.82-1.09)
[2016-11-06] MEDS: methylPREDNISolone NA SUCC 40 MG/1 ML VIAL IVPB SCH ×3 (09:40→21:49)
[2016-11-06] MEDS: POTASSIUM CHLORIDE TABS 20 MEQ TABLET.ER (FP) PO SCH (09:40)
[2016-11-06] MEDS: LISINOPRIL 20 MG TABLET (FP) PO SCH ×2 (09:40→21:48)
[2016-11-06] MEDS: ISOSORBIDE MONONITRATE 30 MG TAB.SR.24H (FP) PO SCH (09:40)
[2016-11-06] MEDS: AZITHROMYCIN IVPB 250 ML IVPB SCH (09:41)
[2016-11-06] MEDS: CEFTRIAXONE 50 ML IVPB SCH (09:41)
[2016-11-06] MEDS: ACETAMINOPHEN 325 MG TABLET (FP) PO PRN (09:56)
[2016-11-06] MEDS ORDERED: FUROSEMIDE 20 MG TABLET (FP) PO SCH (10:00)
--- NOTE | 2016-11-06 10:34 | PN ---
Progress Note, Physician History of Present Illness: The patient is a 76 year old female with a significant past medical history of CHF, and PAF on Coumadin, presenting to the Emergency Department with shortness of breath and cough for one week. The patients son reports that the patient was seen at her PCPs office on Friday for shortness of breath and cough when she was diagnosed with bronchitis and was prescribed antibiotics. The patient admits she has taken 3 days of antibiotics, though she has not taken any of the prescription today. The patients son reports that the patient has shortness of breath exacerbated by walking normally, though her shortness of breath has been worse over the past week. The patients son admits that the patient has orthopnea, and sleeps in a specially reclined chair, though she has not been able to sleep comfortably this past week. The patient admits that the cough is sometimes productive, producing phelgm. The patient denies any chest pain. The patient is compliant with her medications. The patient denies palpitations, chest pain, and diaphoresis. Patient denies fever, or chills. Patient denies nausea, vomiting, and diarrhea. Patient denies back pain, or neck pain. [facility] coronary angiogram 06/2015: luminal irregularities of LAD, LCx, RCA Rt lower extremity angiogram 06/2015: Rt common femoral, right superficial femoral, and right popliteal arteries have 30% stenoses. Medical history: Moderately severe mitral regurgitation HTN obesity Atrial fibrillation hyperlipidemia GERD iron-deficiency anemia - Current Medication List Current Medications: Active Medications Acetaminophen (Tylenol -) 650 mg PO Q4H PRN PRN Reason: FEVER OR PAIN Last Admin: 11/06/16 09:56 Dose: 650 mg Albuterol Sulfate (Ventolin 0.083% Nebulizer Soln -) 1 amp NEB QIDR [facility] Last Admin: 11/06/16 06:20 Dose: 1 amp Diltiazem HCl (Cardizem Cd -) 120 mg PO BID [facility] Last Admin: 11/06/16 09:40 Dose: 120 mg Furosemide (Lasix -) 20 mg PO BID@0600,1400 [facility] Last Admin: 11/06/16 06:21 Dose: 20 mg Azithromycin (Zithromax 500mg Ivpb (Pre-Docked)) 250 mls @ 250 mls/hr IVPB DAILY [facility] Last Admin: 11/06/16 09:41 Dose: 250 mls/hr Ceftriaxone Sodium (Rocephin 1gm Ivpb (Pre-Docked)) 50 mls @ 100 mls/hr IVPB DAILY [facility] Last Admin: 11/06/16 09:41 Dose: 100 mls/hr Isosorbide Mononitrate (Imdur -) 30 mg PO DAILY [facility] Last Admin: 11/06/16 09:40 Dose: 30 mg Lactulose (Cephulac (Oral Use)) 20 gm PO DAILY PRN PRN Reason: CONSTIPATION Lisinopril (Prinivil) 20 mg PO BID [facility] Last Admin: 11/06/16 09:40 Dose: 20 mg Methylprednisolone Sodium Succinate (Solu-Medrol -) 40 mg IVPB BID@0800,1999 [facility] Last Admin: 11/06/16 09:40 Dose: 40 mg Pneumococcal Polyvalent Vaccine (Pneumovax -) 0.5 ml SQ .ONCE ONE Stop: 11/06/16 10:48 Potassium Chloride (K-Dur -) 20 meq PO DAILY [facility] Last Admin: 11/06/16 09:40 Dose: 20 meq - Objective Vital Signs: Vital Signs Temperature 97 F L 11/06/16 06:19 Pulse Rate 90 11/06/16 06:19 Respiratory Rate 20 11/06/16 06:19 Blood Pressure 145/100 11/06/16 06:19 O2 Sat by Pulse Oximetry (%) 94 L 11/05/16 21:00 Eyes: Yes: WNL, Conjunctiva Clear, EOM Intact HENT: Yes: WNL, Atraumatic, Normocephalic Neck: Yes: WNL, Supple, Trachea Midline Cardiovascular: Yes: WNL, Regular Rate and Rhythm Respiratory: Yes: WNL, Regular, CTA Bilaterally Gastrointestinal: Yes: WNL, Normal Bowel Sounds Genitourinary: Yes: WNL Musculoskeletal: Yes: WNL Extremities: Yes: WNL Edema: No Integumentary: Yes: WNL Neurological: Yes: WNL, Alert, Oriented ...Motor Strength: WNL Psychiatric: Yes: WNL Labs: CBC, BMP 11/05/16 06:55 11/05/16 06:55 INR, PTT INR 2.67 (0.82-1.09) H 11/06/16 06:20 Problem List - Problems (1) Acute asthmatic bronchitis Code(s): J45.909 - UNSPECIFIED ASTHMA, UNCOMPLICATED (2) Atrial fib/flutter, transient Code(s): [id number] - (3) Shortness of breath Code(s): R06.02 - SHORTNESS OF BREATH (4) Anemia Code(s): D64.9 - ANEMIA, UNSPECIFIED Qualifiers: Anemia type: unspecified type Qualified Code(s): D64.9 - Anemia, unspecified (5) Ankle pain, right Code(s): M25.571 - PAIN IN RIGHT ANKLE AND JOINTS OF RIGHT FOOT Qualifiers: Chronicity: unspecified Qualified Code(s): M25.571 - Pain in right ankle and joints of right foot (6) Anticoagulated on Coumadin Code(s): Z51.81 - ENCOUNTER FOR THERAPEUTIC DRUG LEVEL MONITORING Z79.01 - VAN DRIVER (CURRENT) USE OF ANTICOAGULANTS (7) Atrial fibrillation Code(s): I48.91 - UNSPECIFIED ATRIAL FIBRILLATION Qualifiers: Atrial fibrillation type: chronic Qualified Code(s): I48.2 - Chronic atrial fibrillation (8) CHF (NYHA class II, ACC/AHA stage C) Code(s): I50.9 - HEART FAILURE, UNSPECIFIED (9) Congestive heart failure (CHF) Code(s): I50.9 - HEART FAILURE, UNSPECIFIED Qualifiers: Congestive heart failure type: systolic Congestive heart failure chronicity: acute on chronic Qualified Code(s): I50.23 - Acute on chronic systolic (congestive) heart failure (10) Hematoma following percutaneous transluminal coronary angioplasty Code(s): I97.610 - POSTPROC HEMOR OF A CIRC SYS ORG FOLLOWING A CARDIAC CATH (11) Hyperlipidemia Code(s): E78.5 - HYPERLIPIDEMIA, UNSPECIFIED (12) Hypertension Code(s): I10 - ESSENTIAL (PRIMARY) HYPERTENSION Qualifiers: Hypertension type: essential hypertension Qualified Code(s): I10 - Essential (primary) hypertension (13) Obesity (BMI 30-39.9) Code(s): E66.9 - OBESITY, UNSPECIFIED (14) Pre-syncope Code(s): R55 - SYNCOPE AND COLLAPSE (15) Stasis ulcer of right lower extremity Code(s): I83.019 - VARICOSE VEINS OF RIGHT LOWER EXTREMITY W ULCER OF UNSP SITE (16) Venous insufficiency Code(s): I87.2 - VENOUS INSUFFICIENCY (CHRONIC) (PERIPHERAL) Assessment/Plan Problems (1) Acute asthmatic bronchitis Assessment/Plan: On solumedrol and Ventolin. Code(s): J45.909 - UNSPECIFIED ASTHMA, UNCOMPLICATED (2) Acute on chronic diastolic (congestive) heart failure Assessment/Plan: On diltiazem CD bid (HTN; CHF; AF), lisinopril. Furosemide decreased to 20 mg bid (rising BUN; no JVD; no acute pathology on CXR ). F/u BUN/Cr, electrolytes (on PO K+: 3.6 today; furosedmide now decreased; on ACEI), daily weight, Is and Os. Code(s): I50.33 - ACUTE ON CHRONIC DIASTOLIC (CONGESTIVE) HEART FAILURE (3) Anemia Code(s): D64.9 - ANEMIA, UNSPECIFIED Qualifiers: Anemia type: unspecified type Qualified Code(s): D64.9 - Anemia, unspecified (4) Atrial fibrillation Assessment/Plan: on diltiazem for HR. On warfarin (held until INR falls below 3.0). Code(s): I48.91 - UNSPECIFIED ATRIAL FIBRILLATION Qualifiers: Atrial fibrillation type: chronic Qualified Code(s): I48.2 - Chronic atrial fibrillation (5) Shortness of breath Code(s): R06.02 - SHORTNESS OF BREATH (6) Hyperlipidemia Code(s): E78.5 - HYPERLIPIDEMIA, UNSPECIFIED (7) Hypertension Code(s): I10 - ESSENTIAL (PRIMARY) HYPERTENSION Qualifiers: Hypertension type: essential hypertension Qualified Code(s): I10 - Essential (primary) hypertension (8) Venous insufficiency Code(s): I87.2 - VENOUS INSUFFICIENCY (CHRONIC) (PERIPHERAL) (9) Stasis ulcer of left lower extremity Code(s): I83.029 - VARICOSE VEINS OF LEFT LOWER EXTREMITY W ULCER OF UNSP SITE
[2016-11-06] MEDS ORDERED: PNEUMOCOCCAL 23 VACCINE 0.5 ML VIAL SQ ONE (10:47)
--- NOTE | 2016-11-06 12:35 | PN ---
Progress Note (short form) - Note Progress Note: PULMONARY CONSULTATION DICTATED 11/06/16 IMP ACUTE ASTHMATIC BRONCHITIS CHF AFIB PULMONARY HTN SEVERE MITRAL INSUFFICIENCY HTN GERD PLAN IV STEROIDS INHALED BRONCHODILATORS NASAL O2 LASIX ANTIBIOTICS PER ID CHEST CT PFTS OUTPATIENT ECHO DR EID Problem List - Problems (1) Acute asthmatic bronchitis Code(s): J45.909 - UNSPECIFIED ASTHMA, UNCOMPLICATED (2) Acute on chronic diastolic (congestive) heart failure Code(s): I50.33 - ACUTE ON CHRONIC DIASTOLIC (CONGESTIVE) HEART FAILURE (3) Atrial fibrillation Code(s): I48.91 - UNSPECIFIED ATRIAL FIBRILLATION Qualifiers: Atrial fibrillation type: chronic Qualified Code(s): I48.2 - Chronic atrial fibrillation (4) Shortness of breath Code(s): R06.02 - SHORTNESS OF BREATH (5) Hypertension Code(s): I10 - ESSENTIAL (PRIMARY) HYPERTENSION Qualifiers: Hypertension type: essential hypertension Qualified Code(s): I10 - Essential (primary) hypertension (6) Obesity (BMI 30-39.9) Code(s): E66.9 - OBESITY, UNSPECIFIED (7) Pulmonary hypertension Code(s): I27.2 - OTHER SECONDARY PULMONARY HYPERTENSION (8) Valvular heart disease Code(s): I38 - ENDOCARDITIS, VALVE UNSPECIFIED
[2016-11-06] MEDS ORDERED: ALBUTEROL SO4 2.5/IPRATROPIUM 0.5 INH SOL 3 ML VIAL.NEB. NEB PRN (12:37)
[2016-11-06] MEDS: BUDESONIDE/FORMETEROL FUMARATE 160/4.5 mcg INHALER IH SCH ×2 (14:00→21:53)
--- NOTE | 2016-11-06 15:44 | CONS ---
DATE OF CONSULTATION: 11/06/2016 PULMONARY CONSULTATION REFERRING PHYSICIAN: Benson Jennings MD HISTORY OF PRESENT ILLNESS: The patient is a 76-year-old white [place] female with a past medical history of atrial fibrillation, hypertension, hyperlipidemia , severe mitral insufficiency, pulmonary hypertension, GERD, hiatal hernia, history of intestinal adhesions, status post surgery, cholecystitis, back pain, osteoarthritis, nonsmoker, admitted to [facility] with complaint of shortness of breath, cough and wheezing. The patient had been seen by Dr. Jennings in his office 2 days prior to admission. At that time, she had the above complaints. She was prescribed Levaquin 500 mg and ProAir inhaler. Despite these measures she did not improve and presented to the emergency room. In the emergency room she was felt to have acute asthmatic bronchitis. She was placed on IV steroids, inhaled bronchodilators and IV Medrol. She was transferred to the telemetry unit for further management. Of note, she has been complaining of increasing shortness of breath , dyspnea on exertion and occasional chest discomfort with exertion. She has a cough which is nonproductive. Denies any fever or chills or hemoptysis. She states that she has severe orthopnea and sleeps with the head of the bed elevated at all times. She also noted increasing lower extremity edema on admission. She was evaluated by Dr. Van for consultation for infectious disease and placed on antibiotics for possible acute bronchitis. She was also evaluated by cardiology for consultation who felt that the patient most likely had acute asthmatic bronchitis and possible mild congestive heart failure as well as decompensated CHF. She is a nonsmoker and denies any occupational exposure to chemical fumes. She denies any history of COPD or asthma in the past. PAST MEDICAL HISTORY: Again includes CHF, valvular heart disease, severe mitral regurgitation, pulmonary hypertension, hypertension, hyperlipidemia, CHF, atrial fibrillation, and anemia. REVIEW OF SYSTEMS: Positive orthopnea, positive dyspnea, positive cough, positive bronchospasm, positive chest discomfort with exertion, no abdominal pain, no nausea, no vomiting, no diarrhea, positive lower extremity edema. CURRENT MEDICATIONS: Include Solu-Medrol 40 daily, lactulose, Tylenol, Prinivil , Zithromax, ceftriaxone, Albuterol, Cardizem, Lasix, Imdur, K-Dur, and Pneumovax. PHYSICAL EXAMINATION: General: The patient is a well-developed, well-nourished female, awake, alert and appears comfortable in no acute respiratory distress. Vitals: The patient is currently afebrile. Blood pressure is 143/96, respiratory rate 22, O2 saturation 92% on 2 L. HEENT: Examination is noncontributory atraumatic. Neck: Supple. Heart: Irregular regular, normal S1, S2. Lungs: Bilateral expiratory and inspiratory wheezes, few scattered rhonchi. Abdomen: Soft, bowel sounds positive. Extremities: Bilateral lower extremity edema. LABORATORY DATA: BUN is 33, creatinine 0.8 on admission the BNP was 2572. CRP is 1.8. WBC 7.6, hemoglobin 13.6, hematocrit 41.1, platelet count 212,000. There are 91 polys, 4 lymphs and 4 monocytes. INR is 2.67. Cold agglutinins are negative. Chest x-ray reveals cardiomegaly but no acute infiltrates and/or effusions. IMPRESSION: Cough, bronchospasm and dyspnea most likely multiple factors. 1. Might be acute asthmatic bronchitis likely secondary to upper respiratory infection. 2. Decompensated congestive heart failure. 3. Atrial fibrillation. 4. Pulmonary hypertension. 5. Severe mitral regurgitation. 6. Hypertension. 7. Gastroesophageal reflux disease. PLAN: Continue IV steroids. Will increase dosage. Will continue antibiotic therapy as per infectious disease. Supplemental O2, inhaled bronchodilators, Lasix, obtain echo if not recently performed. Will follow closely with you. SHARRI EID M.D. [id number] MTDD
[2016-11-06] MEDS ORDERED: ALBUTEROL SO4 2.5/IPRATROPIUM 0.5 INH SOL 3 ML VIAL.NEB. NEB SCH (19:45)
[2016-11-06] MEDS ORDERED: WARFARIN NA 3 MG TABLET PO ONE (20:22)
--- NOTE | 2016-11-06 20:31 | PN ---
Progress Note, Physician History of Present Illness: Continues to have cough and wheezing - Current Medication List Current Medications: Active Medications Acetaminophen (Tylenol -) 650 mg PO Q4H PRN PRN Reason: FEVER OR PAIN Last Admin: 11/06/16 09:56 Dose: 650 mg Albuterol/Ipratropium (Duoneb -) 1 amp NEB Q6H [facility] Budesonide/Formoterol Fumarate (Symbicort 160/4.5mcg -) 2 puff IH BID [facility] Last Admin: 11/06/16 14:00 Dose: Not Given Diltiazem HCl (Cardizem Cd -) 120 mg PO BID [facility] Last Admin: 11/06/16 09:40 Dose: 120 mg Furosemide (Lasix -) 20 mg PO BID@0600,1400 [facility] Last Admin: 11/06/16 15:51 Dose: 20 mg Azithromycin (Zithromax 500mg Ivpb (Pre-Docked)) 250 mls @ 250 mls/hr IVPB DAILY [facility] Last Admin: 11/06/16 09:41 Dose: 250 mls/hr Ceftriaxone Sodium (Rocephin 1gm Ivpb (Pre-Docked)) 50 mls @ 100 mls/hr IVPB DAILY [facility] Last Admin: 11/06/16 09:41 Dose: 100 mls/hr Isosorbide Mononitrate (Imdur -) 30 mg PO DAILY [facility] Last Admin: 11/06/16 09:40 Dose: 30 mg Lactulose (Cephulac (Oral Use)) 20 gm PO DAILY PRN PRN Reason: CONSTIPATION Lisinopril (Prinivil) 20 mg PO BID [facility] Last Admin: 11/06/16 09:40 Dose: 20 mg Methylprednisolone Sodium Succinate (Solu-Medrol -) 40 mg IVPB Q6H-IV [facility] Last Admin: 11/06/16 15:52 Dose: 40 mg Pneumococcal Polyvalent Vaccine (Pneumovax -) 0.5 ml SQ .ONCE ONE Stop: 11/06/16 10:48 Potassium Chloride (K-Dur -) 20 meq PO DAILY [facility] Last Admin: 11/06/16 09:40 Dose: 20 meq Warfarin Sodium (Coumadin -) 3 mg PO NOW ONE Stop: 11/06/16 20:23 - Objective Vital Signs: Vital Signs Temperature 98.0 F 11/06/16 17:00 Pulse Rate 82 11/06/16 17:00 Respiratory Rate 18 11/06/16 17:00 Blood Pressure 127/75 11/06/16 17:00 O2 Sat by Pulse Oximetry (%) 95 11/06/16 09:00 Constitutional: Yes: Well Nourished, Calm, Mild Distress Eyes: Yes: WNL HENT: Yes: WNL Neck: Yes: WNL, Supple Cardiovascular: Yes: Pulse Irregular, S2 Respiratory: Yes: Rhonchi, Wheezes Gastrointestinal: Yes: Normal Bowel Sounds, Soft Genitourinary: Yes: WNL Musculoskeletal: Yes: Joint Stiffness Extremities: Yes: Erythema Edema: No Peripheral Pulses WNL: Yes Integumentary: Yes: WNL Neurological: Yes: Alert, Oriented, Cran Nerves II-XII Intact ...Motor Strength: WNL Psychiatric: Yes: Alert, Oriented Labs: CBC, BMP 11/05/16 06:55 11/05/16 06:55 INR, PTT INR 2.67 (0.82-1.09) H 11/06/16 06:20 - ....Imaging Cat Scan: Report Reviewed Problem List - Problems (1) Hyperlipidemia Code(s): E78.5 - HYPERLIPIDEMIA, UNSPECIFIED (2) Hypertension Code(s): I10 - ESSENTIAL (PRIMARY) HYPERTENSION Qualifiers: Hypertension type: essential hypertension Qualified Code(s): I10 - Essential (primary) hypertension (3) Obesity (BMI 30-39.9) Code(s): E66.9 - OBESITY, UNSPECIFIED (4) Venous insufficiency Code(s): I87.2 - VENOUS INSUFFICIENCY (CHRONIC) (PERIPHERAL) (5) Acute asthmatic bronchitis Code(s): J45.909 - UNSPECIFIED ASTHMA, UNCOMPLICATED (6) Atrial fib/flutter, transient Code(s): [id number] - (7) Anticoagulated on Coumadin Code(s): Z51.81 - ENCOUNTER FOR THERAPEUTIC DRUG LEVEL MONITORING Z79.01 - SHELTER (CURRENT) USE OF ANTICOAGULANTS (8) Atrial fibrillation Code(s): I48.91 - UNSPECIFIED ATRIAL FIBRILLATION Qualifiers: Atrial fibrillation type: chronic Qualified Code(s): I48.2 - Chronic atrial fibrillation (9) CHF (NYHA class II, ACC/AHA stage C) Code(s): I50.9 - HEART FAILURE, UNSPECIFIED Assessment/Plan Seen by ,pulmonary and restarted on solumedrol Q6H, add inhaled steroids. Continue present regimen
[2016-11-07] MEDS: methylPREDNISolone NA SUCC 40 MG/1 ML VIAL IVPB SCH ×4 (02:58→22:19)
[2016-11-07] MEDS ORDERED: ALBUTEROL SO4 2.5/IPRATROPIUM 0.5 INH SOL 3 ML VIAL.NEB. NEB ONE (05:36)
[2016-11-07] MEDS: FUROSEMIDE 20 MG TABLET (FP) PO SCH ×2 (05:58→14:09)
[2016-11-07] MEDS: POTASSIUM CHLORIDE TABS 20 MEQ TABLET.ER (FP) PO SCH (10:01)
[2016-11-07] MEDS: ISOSORBIDE MONONITRATE 30 MG TAB.SR.24H (FP) PO SCH (10:01)
[2016-11-07] MEDS: LISINOPRIL 20 MG TABLET (FP) PO SCH ×2 (10:01→22:19)
[2016-11-07] MEDS: CEFTRIAXONE 50 ML IVPB SCH (10:01)
[2016-11-07] MEDS: AZITHROMYCIN IVPB 250 ML IVPB SCH (10:01)
[2016-11-07] MEDS: BUDESONIDE/FORMETEROL FUMARATE 160/4.5 mcg INHALER IH SCH ×2 (10:07→22:19)
[2016-11-07 10:44] LABS: INR 1.94 (0.82-1.09); PROTHROMBIN TIME (PATIENT) 21.6 SEC (9.98-11.88)
[2016-11-07] MEDS: ALBUTEROL SO4 2.5/IPRATROPIUM 0.5 INH SOL 3 ML VIAL.NEB. NEB SCH ×3 (12:53→23:54)
--- NOTE | 2016-11-07 13:03 | PN ---
Progress Note, Physician Chief Complaint: Pt A&Ox3; sitting in chair, where she feels better (less coughing than when she is lying down). She has been doing little walking. History of Present Illness: The patient is a 76 year old white female (trevor Cole), with a significant past medical history of diastolic CHF, PAF (on Coumadin), presenting to the Emergency Department with shortness of breath and cough for one week. The patients son reports that the patient was seen at her PCPs office on Friday for shortness of breath and cough when she was diagnosed with bronchitis and was prescribed antibiotics. The patient admits she has taken 3 days of antibiotics, though she has not taken any of the prescription today. The patients son reports that the patient has shortness of breath exacerbated by walking normally, though her shortness of breath has been worse over the past week. The patients son admits that the patient has orthopnea, and sleeps in a specially reclined chair, though she has not been able to sleep comfortably this past week. The patient admits that the cough is sometimes productive, producing phelgm. The patient denies any chest pain. The patient is compliant with her medications. The patient denies palpitations, chest pain, and diaphoresis. Patient denies fever, or chills. Patient denies nausea, vomiting, and diarrhea. Patient denies back pain, or neck pain. PCP: Dr. Jennings [phone] - Current Medication List Current Medications: Active Medications Acetaminophen (Tylenol -) 650 mg PO Q4H PRN PRN Reason: FEVER OR PAIN Last Admin: 11/06/16 09:56 Dose: 650 mg Albuterol/Ipratropium (Duoneb -) 1 amp NEB QIDR [facility] Last Admin: 11/07/16 12:53 Dose: 1 amp Budesonide/Formoterol Fumarate (Symbicort 160/4.5mcg -) 2 puff IH BID [facility] Last Admin: 11/07/16 10:07 Dose: 2 puff Diltiazem HCl (Cardizem Cd -) 120 mg PO BID [facility] Last Admin: 11/07/16 10:01 Dose: 120 mg Furosemide (Lasix -) 20 mg PO BID@0600,1400 [facility] Last Admin: 11/07/16 05:58 Dose: 20 mg Azithromycin (Zithromax 500mg Ivpb (Pre-Docked)) 250 mls @ 250 mls/hr IVPB DAILY [facility] Last Admin: 11/07/16 10:01 Dose: 250 mls/hr Ceftriaxone Sodium (Rocephin 1gm Ivpb (Pre-Docked)) 50 mls @ 100 mls/hr IVPB DAILY [facility] Last Admin: 11/07/16 10:01 Dose: 100 mls/hr Isosorbide Mononitrate (Imdur -) 30 mg PO DAILY [facility] Last Admin: 11/07/16 10:01 Dose: 30 mg Lactulose (Cephulac (Oral Use)) 20 gm PO DAILY PRN PRN Reason: CONSTIPATION Lisinopril (Prinivil) 20 mg PO BID [facility] Last Admin: 11/07/16 10:01 Dose: 20 mg Methylprednisolone Sodium Succinate (Solu-Medrol -) 40 mg IVPB Q6H-IV [facility] Last Admin: 11/07/16 10:01 Dose: 40 mg Pneumococcal Polyvalent Vaccine (Pneumovax -) 0.5 ml SQ .ONCE ONE Stop: 11/06/16 10:48 Potassium Chloride (K-Dur -) 20 meq PO DAILY [facility] Last Admin: 11/07/16 10:01 Dose: 20 meq - Objective Vital Signs: Vital Signs Temperature 98 F 11/07/16 11:02 Pulse Rate 92 H 11/07/16 11:02 Respiratory Rate 20 11/07/16 11:02 Blood Pressure 127/76 11/07/16 11:02 O2 Sat by Pulse Oximetry (%) 95 11/06/16 21:00 Constitutional: Yes: Calm Eyes: Yes: WNL HENT: Yes: WNL Neck: Yes: WNL Cardiovascular: Yes: Regular Rate and Rhythm, S1 (varies in intensity;), S2 Respiratory: Yes: Rhonchi, SOB on Exertion Gastrointestinal: Yes: Soft ...Rectal Exam: Yes: Deferred Genitourinary: No: Anuria Breast(s): Yes: WNL Musculoskeletal: Yes: Muscle Weakness Edema: Yes Edema: LLE: Trace, RLE: Trace Peripheral Pulses WNL: Yes Integumentary: Yes: Venous Stasis Changes Neurological: Yes: Alert, Oriented, Weakness Psychiatric: Yes: WNL Labs: CBC, BMP 11/05/16 06:55 11/05/16 06:55 INR, PTT INR 1.94 (0.82-1.09) H 11/07/16 06:11 Abnormal Lab Results 11/07/16 06:11 INR 1.94 H - ....Imaging Cat Scan: Image Reviewed Problem List - Problems (1) Acute asthmatic bronchitis Assessment/Plan: CT chest: bilateral atelectasis, most marked in LLL. On solumedrol and Ventolin. On antibiotics (Rocephin and Zithromax). Change to PO steroids and antibiotics per ID and tire design engineer. Code(s): J45.909 - UNSPECIFIED ASTHMA, UNCOMPLICATED (2) Acute on chronic diastolic (congestive) heart failure Assessment/Plan: On diltiazem CD bid (HTN; CHF; AF), lisinopril. Furosemide decreased to 20 mg bid (rising BUN; no JVD; no acute pathology on CXR ). F/u BUN/Cr, electrolytes (on PO K+: 3.6 today; furosemide now decreased; on ACEI ), daily weight, Is and Os. Code(s): I50.33 - ACUTE ON CHRONIC DIASTOLIC (CONGESTIVE) HEART FAILURE (3) Anemia Code(s): D64.9 - ANEMIA, UNSPECIFIED Qualifiers: Anemia type: unspecified type Qualified Code(s): D64.9 - Anemia, unspecified (4) Atrial fibrillation Assessment/Plan: on diltiazem for HR. On warfarin; INR 1.94 (keep 2-3). Code(s): I48.91 - UNSPECIFIED ATRIAL FIBRILLATION Qualifiers: Atrial fibrillation type: chronic Qualified Code(s): I48.2 - Chronic atrial fibrillation (5) Shortness of breath Code(s): R06.02 - SHORTNESS OF BREATH (6) Hyperlipidemia Code(s): E78.5 - HYPERLIPIDEMIA, UNSPECIFIED (7) Hypertension Code(s): I10 - ESSENTIAL (PRIMARY) HYPERTENSION Qualifiers: Hypertension type: essential hypertension Qualified Code(s): I10 - Essential (primary) hypertension (8) Venous insufficiency Code(s): I87.2 - VENOUS INSUFFICIENCY (CHRONIC) (PERIPHERAL) (9) Stasis ulcer of left lower extremity Code(s): I83.029 - VARICOSE VEINS OF LEFT LOWER EXTREMITY W ULCER OF UNSP SITE
--- NOTE | 2016-11-07 15:51 | PN ---
Progress Note (short form) - Note Progress Note: OOB to chair. Feels more congested at night, especially when she lays down. Intake & Output 11/04/16 11/05/16 11/06/16 11/07/16 23:59 23:59 23:59 23:59 Intake Total 550 830 500 140 Balance 550 830 500 140 Weight 190 lb 9.6 oz 190 lb 9.6 oz 191 lb 12.8 oz 192 lb 12.8 oz Last Vital Signs Temp Pulse Resp BP Pulse Ox 98.2 F 83 20 135/59 95 11/07/16 14:14 11/07/16 14:14 11/07/16 14:14 11/07/16 14:14 11/07/16 09:00 Active Medications Acetaminophen (Tylenol -) 650 mg PO Q4H PRN PRN Reason: FEVER OR PAIN Last Admin: 11/06/16 09:56 Dose: 650 mg Albuterol/Ipratropium (Duoneb -) 1 amp NEB QIDR [facility] Last Admin: 11/07/16 12:53 Dose: 1 amp Budesonide/Formoterol Fumarate (Symbicort 160/4.5mcg -) 2 puff IH BID [facility] Last Admin: 11/07/16 10:07 Dose: 2 puff Diltiazem HCl (Cardizem Cd -) 120 mg PO BID [facility] Last Admin: 11/07/16 10:01 Dose: 120 mg Furosemide (Lasix -) 20 mg PO BID@0600,1400 [facility] Last Admin: 11/07/16 14:09 Dose: 20 mg Azithromycin (Zithromax 500mg Ivpb (Pre-Docked)) 250 mls @ 250 mls/hr IVPB DAILY [facility] Last Admin: 11/07/16 10:01 Dose: 250 mls/hr Ceftriaxone Sodium (Rocephin 1gm Ivpb (Pre-Docked)) 50 mls @ 100 mls/hr IVPB DAILY [facility] Last Admin: 11/07/16 10:01 Dose: 100 mls/hr Isosorbide Mononitrate (Imdur -) 30 mg PO DAILY [facility] Last Admin: 11/07/16 10:01 Dose: 30 mg Lactulose (Cephulac (Oral Use)) 20 gm PO DAILY PRN PRN Reason: CONSTIPATION Lisinopril (Prinivil) 20 mg PO BID [facility] Last Admin: 11/07/16 10:01 Dose: 20 mg Methylprednisolone Sodium Succinate (Solu-Medrol -) 40 mg IVPB Q6H-IV [facility] Last Admin: 11/07/16 14:10 Dose: 40 mg Pneumococcal Polyvalent Vaccine (Pneumovax -) 0.5 ml SQ .ONCE ONE Stop: 11/06/16 10:48 Potassium Chloride (K-Dur -) 20 meq PO DAILY [facility] Last Admin: 11/07/16 10:01 Dose: 20 meq Constitutional: Yes: awake and alert, NAD Eyes: Yes: WNL HENT: Yes: WNL Neck: Yes: WNL Cardiovascular: Yes: Regular Rate and Rhythm Respiratory: Yes: Bilateral expiratory wheezing, scattered Rhonchi Gastrointestinal: Yes: Soft ...Rectal Exam: Yes: Deferred Genitourinary: No: Anuria Breast(s): Yes: WNL Musculoskeletal: Yes: Muscle Weakness Edema: Yes Edema: LLE: Trace, RLE: Trace Peripheral Pulses WNL: Yes Integumentary: Yes: Venous Stasis Changes Neurological: Yes: Alert, Oriented, Weakness Psychiatric: Yes: WNL Labs: Laboratory Results - last 24 hr 11/07/16 06:11 INR 1.94 H Problem List - Problems (1) Acute asthmatic bronchitis Code(s): J45.909 - UNSPECIFIED ASTHMA, UNCOMPLICATED (2) Acute on chronic diastolic (congestive) heart failure Code(s): I50.33 - ACUTE ON CHRONIC DIASTOLIC (CONGESTIVE) HEART FAILURE (3) Atrial fibrillation Code(s): I48.91 - UNSPECIFIED ATRIAL FIBRILLATION Qualifiers: Atrial fibrillation type: chronic Qualified Code(s): I48.2 - Chronic atrial fibrillation (4) Shortness of breath Code(s): R06.02 - SHORTNESS OF BREATH (5) Hypertension Code(s): I10 - ESSENTIAL (PRIMARY) HYPERTENSION Qualifiers: Hypertension type: essential hypertension Qualified Code(s): I10 - Essential (primary) hypertension (6) Obesity (BMI 30-39.9) Code(s): E66.9 - OBESITY, UNSPECIFIED (7) Pulmonary hypertension Code(s): I27.2 - OTHER SECONDARY PULMONARY HYPERTENSION (8) Valvular heart disease Code(s): I38 - ENDOCARDITIS, VALVE UNSPECIFIED IMP ACUTE ASTHMATIC BRONCHITIS CHF AFIB PULMONARY HTN SEVERE MITRAL INSUFFICIENCY HTN GERD LLL Atelectasis PLAN IV STEROIDS INHALED BRONCHODILATORS NASAL O2 LASIX ANTIBIOTICS PER ID PFTS OUTPATIENT WILL NEED FOLLOW UP IMAGING TO DOCUMENT RESOLUTION OF LLL PROCESS OR MAY NEED TO CONSIDER INSPECTION BRONCHOSCOPY DR SHULTZ
[2016-11-07] MEDS ORDERED: PNEUMOC 13-VAL CONJ-DIP CRM/PF 0.5 ML DISP.SYRIN IM ONE (17:45)
[2016-11-07] MEDS ORDERED: WARFARIN NA 2 MG TABLET (UD) PO ONE (20:35)
[2016-11-07] MEDS: guaiFENesin 600 MG TABLET.ER (FP) PO SCH (22:19)
[2016-11-08] MEDS: methylPREDNISolone NA SUCC 40 MG/1 ML VIAL IVPB SCH ×4 (03:04→21:47)
[2016-11-08] MEDS: FUROSEMIDE 20 MG TABLET (FP) PO SCH ×2 (06:28→14:04)
[2016-11-08] MEDS: ALBUTEROL SO4 2.5/IPRATROPIUM 0.5 INH SOL 3 ML VIAL.NEB. NEB SCH ×3 (06:46→16:50)
[2016-11-08 07:28] LABS: MCHC 33.9 g/dl (32.0-36.0); MEAN CELL VOLUME 94.3 fl (80-96); MEAN PLT VOLUME 7.1 fl (7.5-11.1); NEUTROPHILS 93.4 % (42.8-82.8); PLATELET COUNT 237 K/MM3 (134-434); WHITE BLOOD COUNT 7.5 K/mm3 (4.0-10.0)
[2016-11-08 07:50] LABS: INR 1.76 (0.82-1.09); PROTHROMBIN TIME (PATIENT) 19.6 SEC (9.98-11.88)
[2016-11-08 08:20] LABS: ALBUMIN 3.6 g/dl (3.4-5.0); ALK PHOS 57 U/L (45-117); ANION GAP 8 (8-16); BILIRUBIN,TOTAL 0.8 mg/dL (0.2-1.0); CALCIUM 8.8 mg/dL (8.5-10.1); CO2 31 mmol/L (21-32); COCKROFT - GAULT 71.7825; CREATININE 0.9 mg/dL (0.55-1.02); GLUCOSE,RANDOM 155 mg/dL (74-106); SGOT/AST 15 U/L (15-37); SGPT/ALT 34 U/L (12-78); TOT PROT 7.1 g/dl (6.4-8.2)
[2016-11-08] MEDS: LISINOPRIL 20 MG TABLET (FP) PO SCH ×2 (10:13→21:46)
[2016-11-08] MEDS: POTASSIUM CHLORIDE TABS 20 MEQ TABLET.ER (FP) PO SCH (10:13)
[2016-11-08] MEDS: ISOSORBIDE MONONITRATE 30 MG TAB.SR.24H (FP) PO SCH (10:13)
[2016-11-08] MEDS: CEFTRIAXONE 50 ML IVPB SCH (10:13)
[2016-11-08] MEDS: AZITHROMYCIN IVPB 250 ML IVPB SCH (10:13)
[2016-11-08] MEDS: guaiFENesin 600 MG TABLET.ER (FP) PO SCH ×2 (10:17→21:47)
[2016-11-08] MEDS: BUDESONIDE/FORMETEROL FUMARATE 160/4.5 mcg INHALER IH SCH ×2 (10:18→21:45)
--- NOTE | 2016-11-08 11:03 | PN ---
Progress Note, Physician History of Present Illness: PULMONARY ALERT,STILL CONGESTED BUT FEELING BETTER,+COUGH - Current Medication List Current Medications: Active Medications Acetaminophen (Tylenol -) 650 mg PO Q4H PRN PRN Reason: FEVER OR PAIN Last Admin: 11/06/16 09:56 Dose: 650 mg Albuterol/Ipratropium (Duoneb -) 1 amp NEB QIDR [facility] Last Admin: 11/08/16 06:46 Dose: 1 amp Budesonide/Formoterol Fumarate (Symbicort 160/4.5mcg -) 2 puff IH BID [facility] Last Admin: 11/08/16 10:18 Dose: 2 puff Diltiazem HCl (Cardizem Cd -) 120 mg PO BID [facility] Last Admin: 11/08/16 10:13 Dose: 120 mg Furosemide (Lasix -) 20 mg PO BID@0600,1400 [facility] Last Admin: 11/08/16 06:28 Dose: 20 mg Guaifenesin (Mucinex -) 600 mg PO BID [facility] Last Admin: 11/08/16 10:17 Dose: 600 mg Azithromycin (Zithromax 500mg Ivpb (Pre-Docked)) 250 mls @ 250 mls/hr IVPB DAILY [facility] Last Admin: 11/08/16 10:13 Dose: 250 mls/hr Ceftriaxone Sodium (Rocephin 1gm Ivpb (Pre-Docked)) 50 mls @ 100 mls/hr IVPB DAILY [facility] Last Admin: 11/08/16 10:13 Dose: 100 mls/hr Isosorbide Mononitrate (Imdur -) 30 mg PO DAILY [facility] Last Admin: 11/08/16 10:13 Dose: 30 mg Lactulose (Cephulac (Oral Use)) 20 gm PO DAILY PRN PRN Reason: CONSTIPATION Lisinopril (Prinivil) 20 mg PO BID [facility] Last Admin: 11/08/16 10:13 Dose: 20 mg Methylprednisolone Sodium Succinate (Solu-Medrol -) 40 mg IVPB Q6H-IV [facility] Last Admin: 11/08/16 10:13 Dose: 40 mg Potassium Chloride (K-Dur -) 20 meq PO DAILY [facility] Last Admin: 11/08/16 10:13 Dose: 20 meq - Objective Vital Signs: Vital Signs Temperature 98.4 F 11/08/16 08:05 Pulse Rate 102 H 11/08/16 08:05 Respiratory Rate 16 11/08/16 08:05 Blood Pressure 146/78 11/08/16 08:05 O2 Sat by Pulse Oximetry (%) 95 11/07/16 21:00 Constitutional: Yes: Well Nourished, Calm Eyes: Yes: WNL HENT: Yes: WNL Neck: Yes: WNL Cardiovascular: Yes: Pulse Irregular, S1, S2 Respiratory: Yes: Wheezes (BILATERAL WHEEZES) Gastrointestinal: Yes: Normal Bowel Sounds, Soft Extremities: Yes: WNL Edema: No Labs: CBC, BMP 11/08/16 06:50 11/08/16 06:50 INR, PTT INR 1.76 (0.82-1.09) H 11/08/16 06:50 - ....Imaging Cat Scan: Report Reviewed, Image Reviewed Problem List - Problems (1) Acute asthmatic bronchitis Code(s): J45.909 - UNSPECIFIED ASTHMA, UNCOMPLICATED (2) Acute on chronic diastolic (congestive) heart failure Code(s): I50.33 - ACUTE ON CHRONIC DIASTOLIC (CONGESTIVE) HEART FAILURE (3) Atrial fibrillation Code(s): I48.91 - UNSPECIFIED ATRIAL FIBRILLATION Qualifiers: Atrial fibrillation type: chronic Qualified Code(s): I48.2 - Chronic atrial fibrillation (4) Shortness of breath Code(s): R06.02 - SHORTNESS OF BREATH (5) Hypertension Code(s): I10 - ESSENTIAL (PRIMARY) HYPERTENSION Qualifiers: Hypertension type: essential hypertension Qualified Code(s): I10 - Essential (primary) hypertension (6) Obesity (BMI 30-39.9) Code(s): E66.9 - OBESITY, UNSPECIFIED (7) Pulmonary hypertension Code(s): I27.2 - OTHER SECONDARY PULMONARY HYPERTENSION (8) Valvular heart disease Code(s): I38 - ENDOCARDITIS, VALVE UNSPECIFIED Assessment/Plan IMP ACUTE ASTHMATIC BRONCHITIS CHF AFIB PULMONARY HTN SEVERE MITRAL INSUFFICIENCY HTN GERD PARTIAL ATELECTASIS LLL PLAN IV STEROIDS SAME DOSE INHALED BRONCHODILATORS NASAL O2 LASIX PFTS OUTPATIENT CHEST PT MUCINEX DR EID Problem List - Problems (1) Acute asthmatic bronchitis Code(s): J45.909 - UNSPECIFIED ASTHMA, UNCOMPLICATED (2) Acute on chronic diastolic (congestive) heart failure Code(s): I50.33 - ACUTE ON CHRONIC DIASTOLIC (CONGESTIVE) HEART FAILURE (3) Atrial fibrillation Code(s): I48.91 - UNSPECIFIED ATRIAL FIBRILLATION Qualifiers: Atrial fibrillation type: chronic Qualified Code(s): I48.2 - Chronic atrial fibrillation (4) Shortness of breath Code(s): R06.02 - SHORTNESS OF BREATH (5) Hypertension Code(s): I10 - ESSENTIAL (PRIMARY) HYPERTENSION Qualifiers: Hypertension type: essential hypertension Qualified Code(s): I10 - Essential (primary) hypertension (6) Obesity (BMI 30-39.9) Code(s): E66.9 - OBESITY, UNSPECIFIED (7) Pulmonary hypertension Code(s): I27.2 - OTHER SECONDARY PULMONARY HYPERTENSION (8) Valvular heart disease Code(s): I38 - ENDOCARDITIS, VALVE UNSPECIFIED
--- NOTE | 2016-11-08 11:22 | PN ---
Progress Note, Physician History of Present Illness: The patient is a 76 year old female with a significant past medical history of CHF, and PAF on Coumadin, presenting to the Emergency Department with shortness of breath and cough for one week. The patients son reports that the patient was seen at her PCPs office on Friday for shortness of breath and cough when she was diagnosed with bronchitis and was prescribed antibiotics. The patient admits she has taken 3 days of antibiotics, though she has not taken any of the prescription today. The patients son reports that the patient has shortness of breath exacerbated by walking normally, though her shortness of breath has been worse over the past week. The patients son admits that the patient has orthopnea, and sleeps in a specially reclined chair, though she has not been able to sleep comfortably this past week. The patient admits that the cough is sometimes productive, producing phelgm. The patient denies any chest pain. The patient is compliant with her medications. The patient denies palpitations, chest pain, and diaphoresis. Patient denies fever, or chills. Patient denies nausea, vomiting, and diarrhea. Patient denies back pain, or neck pain. [facility] coronary angiogram 06/2015: luminal irregularities of LAD, LCx, RCA Rt lower extremity angiogram 06/2015: Rt common femoral, right superficial femoral, and right popliteal arteries have 30% stenoses. Medical history: Moderately severe mitral regurgitation HTN obesity Atrial fibrillation hyperlipidemia GERD iron-deficiency anemia - Current Medication List Current Medications: Active Medications Acetaminophen (Tylenol -) 650 mg PO Q4H PRN PRN Reason: FEVER OR PAIN Last Admin: 11/06/16 09:56 Dose: 650 mg Albuterol/Ipratropium (Duoneb -) 1 amp NEB QIDR [facility] Last Admin: 11/08/16 06:46 Dose: 1 amp Budesonide/Formoterol Fumarate (Symbicort 160/4.5mcg -) 2 puff IH BID [facility] Last Admin: 11/08/16 10:18 Dose: 2 puff Diltiazem HCl (Cardizem Cd -) 120 mg PO BID [facility] Last Admin: 11/08/16 10:13 Dose: 120 mg Furosemide (Lasix -) 20 mg PO BID@0600,1400 [facility] Last Admin: 11/08/16 06:28 Dose: 20 mg Guaifenesin (Mucinex -) 600 mg PO BID [facility] Last Admin: 11/08/16 10:17 Dose: 600 mg Azithromycin (Zithromax 500mg Ivpb (Pre-Docked)) 250 mls @ 250 mls/hr IVPB DAILY [facility] Last Admin: 11/08/16 10:13 Dose: 250 mls/hr Ceftriaxone Sodium (Rocephin 1gm Ivpb (Pre-Docked)) 50 mls @ 100 mls/hr IVPB DAILY [facility] Last Admin: 11/08/16 10:13 Dose: 100 mls/hr Isosorbide Mononitrate (Imdur -) 30 mg PO DAILY [facility] Last Admin: 11/08/16 10:13 Dose: 30 mg Lactulose (Cephulac (Oral Use)) 20 gm PO DAILY PRN PRN Reason: CONSTIPATION Lisinopril (Prinivil) 20 mg PO BID [facility] Last Admin: 11/08/16 10:13 Dose: 20 mg Methylprednisolone Sodium Succinate (Solu-Medrol -) 40 mg IVPB Q6H-IV [facility] Last Admin: 11/08/16 10:13 Dose: 40 mg Potassium Chloride (K-Dur -) 20 meq PO DAILY [facility] Last Admin: 11/08/16 10:13 Dose: 20 meq - Objective Vital Signs: Vital Signs Temperature 98.4 F 11/08/16 08:05 Pulse Rate 102 H 11/08/16 08:05 Respiratory Rate 16 11/08/16 08:05 Blood Pressure 146/78 11/08/16 08:05 O2 Sat by Pulse Oximetry (%) 95 11/07/16 21:00 Eyes: Yes: WNL, Conjunctiva Clear, EOM Intact HENT: Yes: WNL, Atraumatic, Normocephalic Neck: Yes: WNL, Supple, Trachea Midline Cardiovascular: Yes: WNL, Regular Rate and Rhythm Respiratory: Yes: WNL, Regular, CTA Bilaterally Gastrointestinal: Yes: WNL, Normal Bowel Sounds Genitourinary: Yes: WNL Musculoskeletal: Yes: WNL Extremities: Yes: WNL Edema: No Integumentary: Yes: WNL Neurological: Yes: WNL, Alert, Oriented ...Motor Strength: WNL Psychiatric: Yes: WNL Labs: CBC, BMP 11/08/16 06:50 11/08/16 06:50 INR, PTT INR 1.76 (0.82-1.09) H 11/08/16 06:50 Problem List - Problems (1) Acute asthmatic bronchitis Code(s): J45.909 - UNSPECIFIED ASTHMA, UNCOMPLICATED (2) Atrial fib/flutter, transient Code(s): [id number] - (3) Shortness of breath Code(s): R06.02 - SHORTNESS OF BREATH (4) Anemia Code(s): D64.9 - ANEMIA, UNSPECIFIED Qualifiers: Anemia type: unspecified type Qualified Code(s): D64.9 - Anemia, unspecified (5) Ankle pain, right Code(s): M25.571 - PAIN IN RIGHT ANKLE AND JOINTS OF RIGHT FOOT Qualifiers: Chronicity: unspecified Qualified Code(s): M25.571 - Pain in right ankle and joints of right foot (6) Anticoagulated on Coumadin Code(s): Z51.81 - ENCOUNTER FOR THERAPEUTIC DRUG LEVEL MONITORING Z79.01 - BAR HELPER (CURRENT) USE OF ANTICOAGULANTS (7) Atrial fibrillation Code(s): I48.91 - UNSPECIFIED ATRIAL FIBRILLATION Qualifiers: Atrial fibrillation type: chronic Qualified Code(s): I48.2 - Chronic atrial fibrillation (8) CHF (NYHA class II, ACC/AHA stage C) Code(s): I50.9 - HEART FAILURE, UNSPECIFIED (9) Congestive heart failure (CHF) Code(s): I50.9 - HEART FAILURE, UNSPECIFIED Qualifiers: Congestive heart failure type: systolic Congestive heart failure chronicity: acute on chronic Qualified Code(s): I50.23 - Acute on chronic systolic (congestive) heart failure (10) Hematoma following percutaneous transluminal coronary angioplasty Code(s): I97.610 - POSTPROC HEMOR OF A CIRC SYS ORG FOLLOWING A CARDIAC CATH (11) Hyperlipidemia Code(s): E78.5 - HYPERLIPIDEMIA, UNSPECIFIED (12) Hypertension Code(s): I10 - ESSENTIAL (PRIMARY) HYPERTENSION Qualifiers: Hypertension type: essential hypertension Qualified Code(s): I10 - Essential (primary) hypertension (13) Obesity (BMI 30-39.9) Code(s): E66.9 - OBESITY, UNSPECIFIED (14) Pre-syncope Code(s): R55 - SYNCOPE AND COLLAPSE (15) Stasis ulcer of right lower extremity Code(s): I83.019 - VARICOSE VEINS OF RIGHT LOWER EXTREMITY W ULCER OF UNSP SITE (16) Venous insufficiency Code(s): I87.2 - VENOUS INSUFFICIENCY (CHRONIC) (PERIPHERAL) Assessment/Plan (1) Acute asthmatic bronchitis Assessment/Plan: CT chest: bilateral atelectasis, most marked in LLL. On solumedrol and Ventolin. On antibiotics (Rocephin and Zithromax). Change to PO steroids and antibiotics per ID and netsuite consultant. Code(s): J45.909 - UNSPECIFIED ASTHMA, UNCOMPLICATED (2) Acute on chronic diastolic (congestive) heart failure Assessment/Plan: On diltiazem CD bid (HTN; CHF; AF), lisinopril. Furosemide decreased to 20 mg bid (rising BUN; no JVD; no acute pathology on CXR ). F/u BUN/Cr, electrolytes (on PO K+: 3.6 today; furosemide now decreased; on ACEI ), daily weight, Is and Os. Code(s): I50.33 - ACUTE ON CHRONIC DIASTOLIC (CONGESTIVE) HEART FAILURE (3) Anemia Code(s): D64.9 - ANEMIA, UNSPECIFIED Qualifiers: Anemia type: unspecified type Qualified Code(s): D64.9 - Anemia, unspecified (4) Atrial fibrillation Assessment/Plan: on diltiazem for HR. On warfarin; INR 1.94 (keep 2-3). Code(s): I48.91 - UNSPECIFIED ATRIAL FIBRILLATION Qualifiers: Atrial fibrillation type: chronic Qualified Code(s): I48.2 - Chronic atrial fibrillation (5) Shortness of breath Code(s): R06.02 - SHORTNESS OF BREATH (6) Hyperlipidemia Code(s): E78.5 - HYPERLIPIDEMIA, UNSPECIFIED (7) Hypertension Code(s): I10 - ESSENTIAL (PRIMARY) HYPERTENSION Qualifiers: Hypertension type: essential hypertension Qualified Code(s): I10 - Essential (primary) hypertension (8) Venous insufficiency Code(s): I87.2 - VENOUS INSUFFICIENCY (CHRONIC) (PERIPHERAL) (9) Stasis ulcer of left lower extremity Code(s): I83.029 - VARICOSE VEINS OF LEFT LOWER EXTREMITY W ULCER OF UNSP SITE d/c telemetry cardiac licea stable and may be followed as outp.
[2016-11-08] MEDS: LACTULOSE 20 GM/30 ML UDC (FOR ORAL USE ONLY) PO PRN (18:20)
[2016-11-08] MEDS ORDERED: WARFARIN NA 5 MG TABLET (UD) PO ONE (20:59)
--- NOTE | 2016-11-08 21:05 | PN ---
Progress Note, Physician History of Present Illness: Continues to have cough and wheezing Denies any chest pain or hemoptysis - Current Medication List Current Medications: Active Medications Acetaminophen (Tylenol -) 650 mg PO Q4H PRN PRN Reason: FEVER OR PAIN Last Admin: 11/06/16 09:56 Dose: 650 mg Albuterol/Ipratropium (Duoneb -) 1 amp NEB QIDR [facility] Last Admin: 11/08/16 16:50 Dose: 1 amp Budesonide/Formoterol Fumarate (Symbicort 160/4.5mcg -) 2 puff IH BID [facility] Last Admin: 11/08/16 10:18 Dose: 2 puff Diltiazem HCl (Cardizem Cd -) 120 mg PO BID [facility] Last Admin: 11/08/16 10:13 Dose: 120 mg Furosemide (Lasix -) 20 mg PO BID@0600,1400 [facility] Last Admin: 11/08/16 14:04 Dose: 20 mg Guaifenesin (Mucinex -) 600 mg PO BID [facility] Last Admin: 11/08/16 10:17 Dose: 600 mg Isosorbide Mononitrate (Imdur -) 30 mg PO DAILY [facility] Last Admin: 11/08/16 10:13 Dose: 30 mg Lactulose (Cephulac (Oral Use)) 20 gm PO DAILY PRN PRN Reason: CONSTIPATION Last Admin: 11/08/16 18:20 Dose: 20 gm Lisinopril (Prinivil) 20 mg PO BID [facility] Last Admin: 11/08/16 10:13 Dose: 20 mg Methylprednisolone Sodium Succinate (Solu-Medrol -) 40 mg IVPB Q6H-IV [facility] Last Admin: 11/08/16 14:04 Dose: 40 mg Potassium Chloride (K-Dur -) 20 meq PO DAILY [facility] Last Admin: 11/08/16 10:13 Dose: 20 meq Warfarin Sodium (Coumadin -) 5 mg PO NOW ONE Stop: 11/08/16 21:00 - Objective Vital Signs: Vital Signs Temperature 98.8 F 11/08/16 18:00 Pulse Rate 89 11/08/16 18:00 Respiratory Rate 18 11/08/16 18:00 Blood Pressure 124/61 11/08/16 18:00 O2 Sat by Pulse Oximetry (%) 95 11/08/16 11:49 Constitutional: Yes: Calm, Mild Distress Eyes: Yes: Conjunctiva Clear, EOM Intact HENT: Yes: WNL Neck: Yes: Supple Cardiovascular: Yes: Pulse Irregular, S2 Respiratory: Yes: Rhonchi, Wheezes Gastrointestinal: Yes: Normal Bowel Sounds, Soft Genitourinary: Yes: WNL Musculoskeletal: Yes: Joint Stiffness Extremities: Yes: WNL Edema: No Peripheral Pulses WNL: Yes Integumentary: Yes: WNL Neurological: Yes: Alert, Oriented ...Motor Strength: WNL Psychiatric: Yes: Alert, Oriented Labs: CBC, BMP 11/08/16 06:50 11/08/16 06:50 INR, PTT INR 1.76 (0.82-1.09) H 11/08/16 06:50 Problem List - Problems (1) Hyperlipidemia Code(s): E78.5 - HYPERLIPIDEMIA, UNSPECIFIED (2) Hypertension Code(s): I10 - ESSENTIAL (PRIMARY) HYPERTENSION Qualifiers: Hypertension type: essential hypertension Qualified Code(s): I10 - Essential (primary) hypertension (3) Obesity (BMI 30-39.9) Code(s): E66.9 - OBESITY, UNSPECIFIED (4) Venous insufficiency Code(s): I87.2 - VENOUS INSUFFICIENCY (CHRONIC) (PERIPHERAL) (5) Acute asthmatic bronchitis Assessment/Plan: Astmatic bronchitis which hasn't improved with inhaled steroids bronchodilators and IV steroids Code(s): J45.909 - UNSPECIFIED ASTHMA, UNCOMPLICATED (6) Atrial fib/flutter, transient Code(s): NHO6016 - (7) Anticoagulated on Coumadin Code(s): Z51.81 - ENCOUNTER FOR THERAPEUTIC DRUG LEVEL MONITORING Z79.01 - CONTINUOUS IMPROVEMENT BLACK BELT (CURRENT) USE OF ANTICOAGULANTS (8) Atrial fibrillation Code(s): I48.91 - UNSPECIFIED ATRIAL FIBRILLATION Qualifiers: Atrial fibrillation type: chronic Qualified Code(s): I48.2 - Chronic atrial fibrillation (9) CHF (NYHA class II, ACC/AHA stage C) Code(s): I50.9 - HEART FAILURE, UNSPECIFIED Assessment/Plan Continue present regimen Will D/C antibiotics and observe
[2016-11-09] MEDS: ALBUTEROL SO4 2.5/IPRATROPIUM 0.5 INH SOL 3 ML VIAL.NEB. NEB SCH ×2 (00:10→07:00)
[2016-11-09] MEDS: methylPREDNISolone NA SUCC 40 MG/1 ML VIAL IVPB SCH ×4 (03:34→21:36)
[2016-11-09] MEDS: FUROSEMIDE 20 MG TABLET (FP) PO SCH ×2 (05:45→14:41)
--- NOTE | 2016-11-09 08:36 | PN ---
Progress Note, Physician History of Present Illness: pulmonary alert,still congested,+ cough - Current Medication List Current Medications: Active Medications Acetaminophen (Tylenol -) 650 mg PO Q4H PRN PRN Reason: FEVER OR PAIN Last Admin: 11/06/16 09:56 Dose: 650 mg Albuterol/Ipratropium (Duoneb -) 1 amp NEB QIDR [facility] Last Admin: 11/09/16 07:00 Dose: Not Given Budesonide/Formoterol Fumarate (Symbicort 160/4.5mcg -) 2 puff IH BID [facility] Last Admin: 11/08/16 21:45 Dose: 2 puff Diltiazem HCl (Cardizem Cd -) 120 mg PO BID [facility] Last Admin: 11/08/16 21:47 Dose: 120 mg Furosemide (Lasix -) 20 mg PO BID@0600,1400 [facility] Last Admin: 11/09/16 05:45 Dose: 20 mg Guaifenesin (Mucinex -) 600 mg PO BID [facility] Last Admin: 11/08/16 21:47 Dose: 600 mg Isosorbide Mononitrate (Imdur -) 30 mg PO DAILY [facility] Last Admin: 11/08/16 10:13 Dose: 30 mg Lactulose (Cephulac (Oral Use)) 20 gm PO DAILY PRN PRN Reason: CONSTIPATION Last Admin: 11/08/16 18:20 Dose: 20 gm Lisinopril (Prinivil) 20 mg PO BID [facility] Last Admin: 11/08/16 21:46 Dose: 20 mg Methylprednisolone Sodium Succinate (Solu-Medrol -) 40 mg IVPB Q6H-IV [facility] Last Admin: 11/09/16 03:34 Dose: 40 mg Potassium Chloride (K-Dur -) 20 meq PO DAILY [facility] Last Admin: 11/08/16 10:13 Dose: 20 meq - Objective Vital Signs: Vital Signs Temperature 98.7 F 11/09/16 06:00 Pulse Rate 94 H 11/09/16 06:00 Respiratory Rate 20 11/09/16 06:00 Blood Pressure 140/70 11/09/16 06:00 O2 Sat by Pulse Oximetry (%) 92 L 11/08/16 22:00 Constitutional: Yes: Well Nourished, Calm Eyes: Yes: WNL HENT: Yes: WNL Neck: Yes: WNL Cardiovascular: Yes: Pulse Irregular, S1, S2 Respiratory: Yes: Rales, Rhonchi (sharon wheezing and rhonchi) Gastrointestinal: Yes: Normal Bowel Sounds, Soft Extremities: Yes: WNL Edema: Yes Labs: CBC, BMP 11/08/16 06:50 11/08/16 06:50 INR, PTT INR 1.76 (0.82-1.09) H 11/08/16 06:50 Problem List - Problems (1) Acute asthmatic bronchitis Code(s): J45.909 - UNSPECIFIED ASTHMA, UNCOMPLICATED (2) Acute on chronic diastolic (congestive) heart failure Code(s): I50.33 - ACUTE ON CHRONIC DIASTOLIC (CONGESTIVE) HEART FAILURE (3) Atrial fibrillation Code(s): I48.91 - UNSPECIFIED ATRIAL FIBRILLATION Qualifiers: Atrial fibrillation type: chronic Qualified Code(s): I48.2 - Chronic atrial fibrillation (4) Shortness of breath Code(s): R06.02 - SHORTNESS OF BREATH (5) Hypertension Code(s): I10 - ESSENTIAL (PRIMARY) HYPERTENSION Qualifiers: Hypertension type: essential hypertension Qualified Code(s): I10 - Essential (primary) hypertension (6) Obesity (BMI 30-39.9) Code(s): E66.9 - OBESITY, UNSPECIFIED (7) Pulmonary hypertension Code(s): I27.2 - OTHER SECONDARY PULMONARY HYPERTENSION (8) Valvular heart disease Code(s): I38 - ENDOCARDITIS, VALVE UNSPECIFIED Assessment/Plan IMP ACUTE ASTHMATIC BRONCHITIS CHF AFIB PULMONARY HTN SEVERE MITRAL INSUFFICIENCY HTN GERD PARTIAL ATELECTASIS LLL PLAN CONTINUE IV STEROIDS SAME DOSE INHALED BRONCHODILATORS SPIRIVA NASAL O2 LASIX PFTS OUTPATIENT CHEST PT MUCINEX DR EID Problem List - Problems (1) Acute asthmatic bronchitis Code(s): J45.909 - UNSPECIFIED ASTHMA, UNCOMPLICATED (2) Acute on chronic diastolic (congestive) heart failure Code(s): I50.33 - ACUTE ON CHRONIC DIASTOLIC (CONGESTIVE) HEART FAILURE (3) Atrial fibrillation Code(s): I48.91 - UNSPECIFIED ATRIAL FIBRILLATION Qualifiers: Atrial fibrillation type: chronic Qualified Code(s): I48.2 - Chronic atrial fibrillation (4) Shortness of breath Code(s): R06.02 - SHORTNESS OF BREATH (5) Hypertension Code(s): I10 - ESSENTIAL (PRIMARY) HYPERTENSION Qualifiers: Hypertension type: essential hypertension Qualified Code(s): I10 - Essential (primary) hypertension (6) Obesity (BMI 30-39.9) Code(s): E66.9 - OBESITY, UNSPECIFIED (7) Pulmonary hypertension Code(s): I27.2 - OTHER SECONDARY PULMONARY HYPERTENSION (8) Valvular heart disease Code(s): I38 - ENDOCARDITIS, VALVE UNSPECIFIED
[2016-11-09] MEDS ORDERED: ALBUTEROL SO4 0.083% IH SOL 2.5 MG/3 ML VIAL.NEB. NEB PRN (08:37)
[2016-11-09 08:55] LABS: INR 1.8 (0.82-1.09)
[2016-11-09] MEDS: ACETAMINOPHEN 325 MG TABLET (FP) PO PRN (09:21)
[2016-11-09] MEDS: LISINOPRIL 20 MG TABLET (FP) PO SCH ×2 (09:23→21:38)
[2016-11-09] MEDS: guaiFENesin 600 MG TABLET.ER (FP) PO SCH ×2 (09:23→21:38)
[2016-11-09] MEDS: POTASSIUM CHLORIDE TABS 20 MEQ TABLET.ER (FP) PO SCH (09:23)
[2016-11-09] MEDS: ISOSORBIDE MONONITRATE 30 MG TAB.SR.24H (FP) PO SCH (09:23)
[2016-11-09] MEDS: BUDESONIDE/FORMETEROL FUMARATE 160/4.5 mcg INHALER IH SCH ×2 (09:23→21:39)
[2016-11-09] MEDS: TIOTROPIUM BROMIDE 18 MCG/INH (DEVICE W/ 5 CAPSULES) IH SCH (09:40)
--- NOTE | 2016-11-09 11:23 | PN ---
Progress Note, Physician History of Present Illness: seen and examined today in nad. still coughing and wheezing. no overnight events. no new complaints. - Current Medication List Current Medications: Active Medications Acetaminophen (Tylenol -) 650 mg PO Q4H PRN PRN Reason: FEVER OR PAIN Last Admin: 11/09/16 09:21 Dose: 650 mg Albuterol Sulfate (Ventolin 0.083% Nebulizer Soln -) 1 amp NEB Q4H PRN PRN Reason: SHORT OF BREATH/WHEEZING Budesonide/Formoterol Fumarate (Symbicort 160/4.5mcg -) 2 puff IH BID [facility] Last Admin: 11/09/16 09:23 Dose: 2 puff Diltiazem HCl (Cardizem Cd -) 120 mg PO BID [facility] Last Admin: 11/09/16 09:23 Dose: 120 mg Furosemide (Lasix -) 20 mg PO BID@0600,1400 [facility] Last Admin: 11/09/16 05:45 Dose: 20 mg Guaifenesin (Mucinex -) 600 mg PO BID [facility] Last Admin: 11/09/16 09:23 Dose: 600 mg Isosorbide Mononitrate (Imdur -) 30 mg PO DAILY [facility] Last Admin: 11/09/16 09:23 Dose: 30 mg Lactulose (Cephulac (Oral Use)) 20 gm PO DAILY PRN PRN Reason: CONSTIPATION Last Admin: 11/08/16 18:20 Dose: 20 gm Lisinopril (Prinivil) 20 mg PO BID [facility] Last Admin: 11/09/16 09:23 Dose: 20 mg Methylprednisolone Sodium Succinate (Solu-Medrol -) 40 mg IVPB Q6H-IV [facility] Last Admin: 11/09/16 09:23 Dose: 40 mg Potassium Chloride (K-Dur -) 20 meq PO DAILY [facility] Last Admin: 11/09/16 09:23 Dose: 20 meq Tiotropium [place] (Spiriva -) 1 puff IH DAILY [facility] Last Admin: 11/09/16 09:40 Dose: 1 puff Warfarin Sodium (Coumadin -) 5 mg PO ONCE ONE Stop: 11/09/16 18:01 - Objective Vital Signs: Vital Signs Temperature 98.2 F 11/09/16 08:00 Pulse Rate 102 H 11/09/16 08:00 Respiratory Rate 18 11/09/16 08:00 Blood Pressure 148/80 11/09/16 08:00 O2 Sat by Pulse Oximetry (%) 92 L 11/08/16 22:00 Constitutional: Yes: Well Nourished, No Distress, Calm Eyes: Yes: WNL, Conjunctiva Clear, EOM Intact, PERRL HENT: Yes: WNL, Atraumatic, Normocephalic Neck: Yes: WNL, Supple, Trachea Midline Cardiovascular: Yes: Pulse Irregular, S1, S2. No: Regular Rate and Rhythm, Bradycardia, Tachycardia, Bruit, JVD, Gallop, Murmur, Rub, S3, S4, Varicosities Respiratory: Yes: Regular, Cough, Wheezes. No: Rales, Rhonchi Gastrointestinal: Yes: Normal Bowel Sounds, Soft. No: Distention, Tenderness Musculoskeletal: Yes: WNL Extremities: Yes: WNL Edema: No Peripheral Pulses WNL: Yes Peripheral Pulses: Left Doralis Pedis: 2+, Right Dorsalis Pedis: 2+ Integumentary: Yes: WNL Neurological: Yes: Alert, Oriented Psychiatric: Yes: Alert, Oriented Labs: CBC, BMP 11/08/16 06:50 11/08/16 06:50 INR, PTT INR 1.80 (0.82-1.09) H 11/09/16 05:35 - ....Imaging Chest X-ray: Report Reviewed, Image Reviewed EKG: Report Reviewed, Image Reviewed Other: Report Reviewed, Image Reviewed (tele-AFib, HR adequately controlled currently, occasion RVR, PVCs) Assessment/Plan 76 year old woman with a history of CHF, PAF on Coumadin, mod to severe MR, HTN , HLD, Anemia, non-obstructive CAD on cardiac cath 06/2015, non-obstructive PAD, admitted with cough and sob. SOB/Cough-bronchitis, h/o diastolic CHF, valvular heart disease -does not appear volume overloaded -cont bronchodilators as per pulm -cont po Lasix -monitor electrolytes -ok to dc tele Afib-HR overall adequately controlled, occasional episodes of RVR -cont diltiazem and warfarin for goal INR 2-3 HTN-adequately controlled -cont current regimen [id number], stable -outpatient follow up Valvular heart disease-stable -outpatient follow up
[2016-11-09] MEDS ORDERED: WARFARIN NA 5 MG TABLET (UD) PO ONE (18:00)
--- NOTE | 2016-11-09 18:00 | PN ---
Progress Note, Physician History of Present Illness: Feels slightly better with less cough and less wheezing - Current Medication List Current Medications: Active Medications Acetaminophen (Tylenol -) 650 mg PO Q4H PRN PRN Reason: FEVER OR PAIN Last Admin: 11/09/16 09:21 Dose: 650 mg Albuterol Sulfate (Ventolin 0.083% Nebulizer Soln -) 1 amp NEB Q4H PRN PRN Reason: SHORT OF BREATH/WHEEZING Budesonide/Formoterol Fumarate (Symbicort 160/4.5mcg -) 2 puff IH BID [facility] Last Admin: 11/09/16 09:23 Dose: 2 puff Diltiazem HCl (Cardizem Cd -) 120 mg PO BID [facility] Last Admin: 11/09/16 09:23 Dose: 120 mg Furosemide (Lasix -) 20 mg PO BID@0600,1400 [facility] Last Admin: 11/09/16 14:41 Dose: 20 mg Guaifenesin (Mucinex -) 600 mg PO BID [facility] Last Admin: 11/09/16 09:23 Dose: 600 mg Isosorbide Mononitrate (Imdur -) 30 mg PO DAILY [facility] Last Admin: 11/09/16 09:23 Dose: 30 mg Lactulose (Cephulac (Oral Use)) 20 gm PO DAILY PRN PRN Reason: CONSTIPATION Last Admin: 11/08/16 18:20 Dose: 20 gm Lisinopril (Prinivil) 20 mg PO BID [facility] Last Admin: 11/09/16 09:23 Dose: 20 mg Methylprednisolone Sodium Succinate (Solu-Medrol -) 40 mg IVPB Q6H-IV [facility] Last Admin: 11/09/16 14:41 Dose: 40 mg Potassium Chloride (K-Dur -) 20 meq PO DAILY [facility] Last Admin: 11/09/16 09:23 Dose: 20 meq Tiotropium [place] (Spiriva -) 1 puff IH DAILY [facility] Last Admin: 11/09/16 09:40 Dose: 1 puff Warfarin Sodium (Coumadin -) 5 mg PO ONCE ONE Stop: 11/09/16 18:01 Last Admin: 11/09/16 17:05 Dose: 5 mg - Objective Vital Signs: Vital Signs Temperature 98.5 F 11/09/16 16:49 Pulse Rate 79 11/09/16 16:49 Respiratory Rate 19 11/09/16 16:49 Blood Pressure 122/51 11/09/16 16:49 O2 Sat by Pulse Oximetry (%) 93 L 11/09/16 11:45 Constitutional: Yes: No Distress, Calm Eyes: Yes: WNL, Conjunctiva Clear, EOM Intact HENT: Yes: WNL Neck: Yes: WNL Respiratory: Yes: Rhonchi, Wheezes Gastrointestinal: Yes: Normal Bowel Sounds, Soft Genitourinary: Yes: WNL Musculoskeletal: Yes: Joint Stiffness Extremities: Yes: WNL Edema: No Peripheral Pulses WNL: Yes Integumentary: Yes: WNL Neurological: Yes: Alert, Oriented ...Motor Strength: WNL Psychiatric: Yes: Alert, Oriented Labs: CBC, BMP 11/08/16 06:50 11/08/16 06:50 INR, PTT INR 1.80 (0.82-1.09) H 11/09/16 05:35 Problem List - Problems (1) Acute asthmatic bronchitis Assessment/Plan: Will continue IV steroids and inhalation treatment Code(s): J45.909 - UNSPECIFIED ASTHMA, UNCOMPLICATED (2) Atrial fib/flutter, transient Code(s): [id number] - (3) Atrial fibrillation Assessment/Plan: VR well controlled Code(s): I48.91 - UNSPECIFIED ATRIAL FIBRILLATION Qualifiers: Atrial fibrillation type: chronic Qualified Code(s): I48.2 - Chronic atrial fibrillation (4) Hypertension Assessment/Plan: Hypertension well controlled wit present medication Code(s): I10 - ESSENTIAL (PRIMARY) HYPERTENSION Qualifiers: Hypertension type: essential hypertension Qualified Code(s): I10 - Essential (primary) hypertension (5) Hyperlipidemia Code(s): E78.5 - HYPERLIPIDEMIA, UNSPECIFIED (6) Obesity (BMI 30-39.9) Code(s): E66.9 - OBESITY, UNSPECIFIED (7) Venous insufficiency Code(s): I87.2 - VENOUS INSUFFICIENCY (CHRONIC) (PERIPHERAL) (8) Anticoagulated on Coumadin Code(s): Z51.81 - ENCOUNTER FOR THERAPEUTIC DRUG LEVEL MONITORING Z79.01 - USP (CURRENT) USE OF ANTICOAGULANTS (9) CHF (NYHA class II, ACC/AHA stage C) Code(s): I50.9 - HEART FAILURE, UNSPECIFIED Assessment/Plan Imp. Acute asthmatic bronchitis AFib CHF Severe MR Obesity Plan: Continue IV steroids and inhalation with steroids and BD
[2016-11-09] MEDS ORDERED: PT OWN MED DRAWER 7, Y5N ONE (20:40)
[2016-11-10] MEDS: methylPREDNISolone NA SUCC 40 MG/1 ML VIAL IVPB SCH ×3 (03:02→17:15)
[2016-11-10] MEDS: FUROSEMIDE 20 MG TABLET (FP) PO SCH ×2 (06:26→13:37)
[2016-11-10 07:16] LABS: ALBUMIN 3.3 g/dl (3.4-5.0); ANION GAP 10 (8-16); BILIRUBIN,TOTAL 0.7 mg/dL (0.2-1.0); CO2 30 mmol/L (21-32); CREATININE 0.7 mg/dL (0.55-1.02); GLUCOSE,RANDOM 144 mg/dL (74-106); SGOT/AST 9 U/L (15-37); SGPT/ALT 31 U/L (12-78); TOT PROT 6.6 g/dl (6.4-8.2)
[2016-11-10 07:17] LABS: ALK PHOS 51 U/L (45-117)
[2016-11-10 07:21] LABS: INR 2.5 (0.82-1.09)
[2016-11-10] MEDS: TIOTROPIUM BROMIDE 18 MCG/INH (DEVICE W/ 5 CAPSULES) IH SCH (09:28)
[2016-11-10] MEDS: BUDESONIDE/FORMETEROL FUMARATE 160/4.5 mcg INHALER IH SCH ×2 (09:28→21:51)
[2016-11-10] MEDS: POTASSIUM CHLORIDE TABS 20 MEQ TABLET.ER (FP) PO SCH (09:29)
[2016-11-10] MEDS: LISINOPRIL 20 MG TABLET (FP) PO SCH ×2 (09:29→21:51)
[2016-11-10] MEDS: ISOSORBIDE MONONITRATE 30 MG TAB.SR.24H (FP) PO SCH (09:29)
[2016-11-10] MEDS: guaiFENesin 600 MG TABLET.ER (FP) PO SCH ×2 (09:29→21:51)
--- NOTE | 2016-11-10 10:21 | PN ---
Progress Note, Physician - Current Medication List Current Medications: Active Medications Acetaminophen (Tylenol -) 650 mg PO Q4H PRN PRN Reason: FEVER OR PAIN Last Admin: 11/09/16 09:21 Dose: 650 mg Albuterol Sulfate (Ventolin 0.083% Nebulizer Soln -) 1 amp NEB Q4H PRN PRN Reason: SHORT OF BREATH/WHEEZING Budesonide/Formoterol Fumarate (Symbicort 160/4.5mcg -) 2 puff IH BID [facility] Last Admin: 11/10/16 09:28 Dose: 2 puff Diltiazem HCl (Cardizem Cd -) 120 mg PO BID [facility] Last Admin: 11/10/16 09:29 Dose: 120 mg Furosemide (Lasix -) 20 mg PO BID@0600,1400 [facility] Last Admin: 11/10/16 06:26 Dose: 20 mg Guaifenesin (Mucinex -) 600 mg PO BID [facility] Last Admin: 11/10/16 09:29 Dose: 600 mg Isosorbide Mononitrate (Imdur -) 30 mg PO DAILY [facility] Last Admin: 11/10/16 09:29 Dose: 30 mg Lactulose (Cephulac (Oral Use)) 20 gm PO DAILY PRN PRN Reason: CONSTIPATION Last Admin: 11/08/16 18:20 Dose: 20 gm Lisinopril (Prinivil) 20 mg PO BID [facility] Last Admin: 11/10/16 09:29 Dose: 20 mg Methylprednisolone Sodium Succinate (Solu-Medrol -) 40 mg IVPB Q6H-IV [facility] Last Admin: 11/10/16 09:29 Dose: 40 mg Potassium Chloride (K-Dur -) 20 meq PO DAILY [facility] Last Admin: 11/10/16 09:29 Dose: 20 meq Tiotropium [place] (Spiriva -) 1 puff IH DAILY [facility] Last Admin: 11/10/16 09:28 Dose: 1 puff - Objective Vital Signs: Vital Signs Temperature 98.5 F 11/10/16 08:53 Pulse Rate 92 H 11/10/16 08:53 Respiratory Rate 18 11/10/16 08:53 Blood Pressure 155/67 11/10/16 08:53 O2 Sat by Pulse Oximetry (%) 92 L 11/09/16 21:00 Labs: CBC, BMP 11/08/16 06:50 11/10/16 05:40 INR, PTT INR 2.50 (0.82-1.09) H D 11/10/16 05:40 Assessment/Plan 76 year old woman with a history of CHF, PAF on Coumadin, mod to severe MR, HTN , HLD, Anemia, non-obstructive CAD on cardiac cath 06/2015, non-obstructive PAD, admitted with cough and sob. SOB/Cough-bronchitis, h/o diastolic CHF, valvular heart disease -wheezing on exam -does not appear volume overloaded -cont po Lasix -cont bronchodilators Afib-HR overall adequately controlled, occasional episodes of RVR -cont diltiazem and warfarin for goal INR 2-3 HTN-adequately controlled for now -cont current regimen [id number], stable -outpatient follow up Valvular heart disease-stable -outpatient follow up
--- NOTE | 2016-11-10 11:18 | PN ---
Progress Note, Physician History of Present Illness: pulmonary feeling better,less congested,oob-chair, - Current Medication List Current Medications: Active Medications Acetaminophen (Tylenol -) 650 mg PO Q4H PRN PRN Reason: FEVER OR PAIN Last Admin: 11/09/16 09:21 Dose: 650 mg Albuterol Sulfate (Ventolin 0.083% Nebulizer Soln -) 1 amp NEB Q4H PRN PRN Reason: SHORT OF BREATH/WHEEZING Budesonide/Formoterol Fumarate (Symbicort 160/4.5mcg -) 2 puff IH BID [facility] Last Admin: 11/10/16 09:28 Dose: 2 puff Diltiazem HCl (Cardizem Cd -) 120 mg PO BID [facility] Last Admin: 11/10/16 09:29 Dose: 120 mg Furosemide (Lasix -) 20 mg PO BID@0600,1400 [facility] Last Admin: 11/10/16 06:26 Dose: 20 mg Guaifenesin (Mucinex -) 600 mg PO BID [facility] Last Admin: 11/10/16 09:29 Dose: 600 mg Isosorbide Mononitrate (Imdur -) 30 mg PO DAILY [facility] Last Admin: 11/10/16 09:29 Dose: 30 mg Lactulose (Cephulac (Oral Use)) 20 gm PO DAILY PRN PRN Reason: CONSTIPATION Last Admin: 11/08/16 18:20 Dose: 20 gm Lisinopril (Prinivil) 20 mg PO BID [facility] Last Admin: 11/10/16 09:29 Dose: 20 mg Methylprednisolone Sodium Succinate (Solu-Medrol -) 40 mg IVPB Q6H-IV [facility] Last Admin: 11/10/16 09:29 Dose: 40 mg Potassium Chloride (K-Dur -) 20 meq PO DAILY [facility] Last Admin: 11/10/16 09:29 Dose: 20 meq Tiotropium [place] (Spiriva -) 1 puff IH DAILY [facility] Last Admin: 11/10/16 09:28 Dose: 1 puff - Objective Vital Signs: Vital Signs Temperature 98.5 F 11/10/16 08:53 Pulse Rate 92 H 11/10/16 08:53 Respiratory Rate 18 11/10/16 08:53 Blood Pressure 155/67 11/10/16 08:53 O2 Sat by Pulse Oximetry (%) 92 L 11/09/16 21:00 Constitutional: Yes: Well Nourished, Calm Eyes: Yes: WNL HENT: Yes: WNL Neck: Yes: WNL Cardiovascular: Yes: Pulse Irregular, S1, S2 Respiratory: Yes: Rhonchi (scattered sharon wheezes and rhonchi), Wheezes Gastrointestinal: Yes: Normal Bowel Sounds, Soft Extremities: Yes: WNL Edema: Yes Labs: CBC, BMP 11/08/16 06:50 11/10/16 05:40 INR, PTT INR 2.50 (0.82-1.09) H D 11/10/16 05:40 Problem List - Problems (1) Acute asthmatic bronchitis Code(s): J45.909 - UNSPECIFIED ASTHMA, UNCOMPLICATED (2) Acute on chronic diastolic (congestive) heart failure Code(s): I50.33 - ACUTE ON CHRONIC DIASTOLIC (CONGESTIVE) HEART FAILURE (3) Atrial fibrillation Code(s): I48.91 - UNSPECIFIED ATRIAL FIBRILLATION Qualifiers: Atrial fibrillation type: chronic Qualified Code(s): I48.2 - Chronic atrial fibrillation (4) Shortness of breath Code(s): R06.02 - SHORTNESS OF BREATH (5) Hypertension Code(s): I10 - ESSENTIAL (PRIMARY) HYPERTENSION Qualifiers: Hypertension type: essential hypertension Qualified Code(s): I10 - Essential (primary) hypertension (6) Obesity (BMI 30-39.9) Code(s): E66.9 - OBESITY, UNSPECIFIED (7) Pulmonary hypertension Code(s): I27.2 - OTHER SECONDARY PULMONARY HYPERTENSION (8) Valvular heart disease Code(s): I38 - ENDOCARDITIS, VALVE UNSPECIFIED Assessment/Plan IMP ACUTE ASTHMATIC BRONCHITIS CHF AFIB PULMONARY HTN SEVERE MITRAL INSUFFICIENCY HTN GERD PARTIAL ATELECTASIS LLL PLAN STEROID TAPER INHALED BRONCHODILATORS SPIRIVA NASAL O2 LASIX PFTS OUTPATIENT CHEST PT MUCINEX DR EID Problem List - Problems (1) Acute asthmatic bronchitis Code(s): J45.909 - UNSPECIFIED ASTHMA, UNCOMPLICATED (2) Acute on chronic diastolic (congestive) heart failure Code(s): I50.33 - ACUTE ON CHRONIC DIASTOLIC (CONGESTIVE) HEART FAILURE (3) Atrial fibrillation Code(s): I48.91 - UNSPECIFIED ATRIAL FIBRILLATION Qualifiers: Atrial fibrillation type: chronic Qualified Code(s): I48.2 - Chronic atrial fibrillation (4) Shortness of breath Code(s): R06.02 - SHORTNESS OF BREATH (5) Hypertension Code(s): I10 - ESSENTIAL (PRIMARY) HYPERTENSION Qualifiers: Hypertension type: essential hypertension Qualified Code(s): I10 - Essential (primary) hypertension (6) Obesity (BMI 30-39.9) Code(s): E66.9 - OBESITY, UNSPECIFIED (7) Pulmonary hypertension Code(s): I27.2 - OTHER SECONDARY PULMONARY HYPERTENSION (8) Valvular heart disease Code(s): I38 - ENDOCARDITIS, VALVE UNSPECIFIED
[2016-11-10] MEDS: ACETAMINOPHEN 325 MG TABLET (FP) PO PRN (13:36)
[2016-11-10] MEDS ORDERED: WARFARIN NA 5 MG TABLET (UD) PO ONE (18:00)
[2016-11-10] MEDS ORDERED: PT OWN MED DRAWER 7, Y5N ONE (20:20)
--- NOTE | 2016-11-10 21:51 | PN ---
Progress Note, Physician History of Present Illness: Cough now mostly at night, Wheezing is less - Current Medication List Current Medications: Active Medications Acetaminophen (Tylenol -) 650 mg PO Q4H PRN PRN Reason: FEVER OR PAIN Last Admin: 11/10/16 13:36 Dose: 650 mg Albuterol Sulfate (Ventolin 0.083% Nebulizer Soln -) 1 amp NEB Q4H PRN PRN Reason: SHORT OF BREATH/WHEEZING Budesonide/Formoterol Fumarate (Symbicort 160/4.5mcg -) 2 puff IH BID [facility] Last Admin: 11/10/16 09:28 Dose: 2 puff Diltiazem HCl (Cardizem Cd -) 120 mg PO BID [facility] Last Admin: 11/10/16 09:29 Dose: 120 mg Furosemide (Lasix -) 20 mg PO BID@0600,1400 [facility] Last Admin: 11/10/16 13:37 Dose: 20 mg Guaifenesin (Mucinex -) 600 mg PO BID [facility] Last Admin: 11/10/16 09:29 Dose: 600 mg Isosorbide Mononitrate (Imdur -) 30 mg PO DAILY [facility] Last Admin: 11/10/16 09:29 Dose: 30 mg Lactulose (Cephulac (Oral Use)) 20 gm PO DAILY PRN PRN Reason: CONSTIPATION Last Admin: 11/08/16 18:20 Dose: 20 gm Lisinopril (Prinivil) 20 mg PO BID [facility] Last Admin: 11/10/16 09:29 Dose: 20 mg Methylprednisolone Sodium Succinate (Solu-Medrol -) 40 mg IVPB Q8H-IV [facility] Last Admin: 11/10/16 17:15 Dose: 40 mg Potassium Chloride (K-Dur -) 20 meq PO DAILY [facility] Last Admin: 11/10/16 09:29 Dose: 20 meq Tiotropium [place] (Spiriva -) 1 puff IH DAILY [facility] Last Admin: 11/10/16 09:28 Dose: 1 puff - Objective Vital Signs: Vital Signs Temperature 99.5 F 11/10/16 19:01 Pulse Rate 78 11/10/16 19:01 Respiratory Rate 20 11/10/16 14:34 Blood Pressure 135/76 11/10/16 19:01 O2 Sat by Pulse Oximetry (%) 93 L 11/10/16 09:00 Constitutional: Yes: Well Nourished, No Distress, Calm Eyes: Yes: Conjunctiva Clear, EOM Intact HENT: Yes: WNL Neck: Yes: Supple Cardiovascular: Yes: Pulse Irregular, S2 Respiratory: Yes: Regular, Rhonchi, Wheezes Gastrointestinal: Yes: Normal Bowel Sounds, Soft Genitourinary: Yes: WNL Musculoskeletal: Yes: Joint Stiffness Extremities: Yes: Erythema Edema: No Peripheral Pulses WNL: Yes Integumentary: Yes: WNL Neurological: Yes: Alert, Oriented Labs: CBC, BMP 11/08/16 06:50 11/10/16 05:40 INR, PTT INR 2.50 (0.82-1.09) H D 11/10/16 05:40 Problem List - Problems (1) Hyperlipidemia Code(s): E78.5 - HYPERLIPIDEMIA, UNSPECIFIED (2) Hypertension Assessment/Plan: Hypertension well controlled Code(s): I10 - ESSENTIAL (PRIMARY) HYPERTENSION Qualifiers: Hypertension type: essential hypertension Qualified Code(s): I10 - Essential (primary) hypertension (3) Obesity (BMI 30-39.9) Code(s): E66.9 - OBESITY, UNSPECIFIED (4) Venous insufficiency Code(s): I87.2 - VENOUS INSUFFICIENCY (CHRONIC) (PERIPHERAL) (5) Acute asthmatic bronchitis Assessment/Plan: Bronchitis still active even with IV steroids and inhaled steroids Code(s): J45.909 - UNSPECIFIED ASTHMA, UNCOMPLICATED (6) Atrial fib/flutter, transient Code(s): [id number] - (7) Anticoagulated on Coumadin Code(s): Z51.81 - ENCOUNTER FOR THERAPEUTIC DRUG LEVEL MONITORING Z79.01 - PRISON (CURRENT) USE OF ANTICOAGULANTS (8) Atrial fibrillation Code(s): I48.91 - UNSPECIFIED ATRIAL FIBRILLATION Qualifiers: Atrial fibrillation type: chronic Qualified Code(s): I48.2 - Chronic atrial fibrillation (9) CHF (NYHA class II, ACC/AHA stage C) Code(s): I50.9 - HEART FAILURE, UNSPECIFIED Assessment/Plan Problems: Acute Bronchitis most likely viral AFIB CHF Mod MR Hypertension Varicosities Plan: Cont. IV steroids Cont inhaled steroids Cont. inhalation with BCD Cont Lasix
[2016-11-11] MEDS: methylPREDNISolone NA SUCC 40 MG/1 ML VIAL IVPB SCH ×3 (02:18→17:23)
[2016-11-11] MEDS: FUROSEMIDE 20 MG TABLET (FP) PO SCH ×2 (06:25→13:45)
[2016-11-11 08:22] LABS: INR 2.92 (0.82-1.09); PROTHROMBIN TIME (PATIENT) 32.8 SEC (9.98-11.88)
[2016-11-11] MEDS: BUDESONIDE/FORMETEROL FUMARATE 160/4.5 mcg INHALER IH SCH ×2 (10:22→21:43)
[2016-11-11] MEDS: TIOTROPIUM BROMIDE 18 MCG/INH (DEVICE W/ 5 CAPSULES) IH SCH (10:23)
[2016-11-11] MEDS: ISOSORBIDE MONONITRATE 30 MG TAB.SR.24H (FP) PO SCH (10:25)
[2016-11-11] MEDS: LISINOPRIL 20 MG TABLET (FP) PO SCH ×2 (10:25→21:43)
[2016-11-11] MEDS: guaiFENesin 600 MG TABLET.ER (FP) PO SCH ×2 (10:25→21:42)
[2016-11-11] MEDS: POTASSIUM CHLORIDE TABS 20 MEQ TABLET.ER (FP) PO SCH (10:26)
[2016-11-11] MEDS: ACETAMINOPHEN 325 MG TABLET (FP) PO PRN (10:36)
[2016-11-11] MEDS ORDERED: PT OWN MED DRAWER 7, Y5N ONE ×2 (10:41→21:06)
--- NOTE | 2016-11-11 11:47 | PN ---
Progress Note (short form) - Note Progress Note: PULMONARY Feels about the same. Still with persistent nonproductive cough, worse at night and wheezing. No fevers or chills. Last Vital Signs Temp Pulse Resp BP Pulse Ox 97.8 F 84 18 136/71 92 L 11/10/16 23:33 11/10/16 23:33 11/10/16 23:33 11/10/16 23:33 11/10/16 21:00 Gen: NAD at rest Heart: irregular Lung: scattered wheezes, rhonchi Abd: soft, nontender Ext: no edema CBC, BMP 11/08/16 06:50 11/10/16 05:40 Active Medications Acetaminophen (Tylenol -) 650 mg PO Q4H PRN PRN Reason: FEVER OR PAIN Last Admin: 11/11/16 10:36 Dose: 650 mg Albuterol Sulfate (Ventolin 0.083% Nebulizer Soln -) 1 amp NEB Q4H PRN PRN Reason: SHORT OF BREATH/WHEEZING Budesonide/Formoterol Fumarate (Symbicort 160/4.5mcg -) 2 puff IH BID [facility] Last Admin: 11/11/16 10:22 Dose: 2 puff Diltiazem HCl (Cardizem Cd -) 120 mg PO BID [facility] Last Admin: 11/11/16 10:25 Dose: 120 mg Furosemide (Lasix -) 20 mg PO BID@0600,1400 [facility] Last Admin: 11/11/16 06:25 Dose: 20 mg Guaifenesin (Mucinex -) 600 mg PO BID [facility] Last Admin: 11/11/16 10:25 Dose: 600 mg Isosorbide Mononitrate (Imdur -) 30 mg PO DAILY [facility] Last Admin: 11/11/16 10:25 Dose: 30 mg Lactulose (Cephulac (Oral Use)) 20 gm PO DAILY PRN PRN Reason: CONSTIPATION Last Admin: 11/08/16 18:20 Dose: 20 gm Lisinopril (Prinivil) 20 mg PO BID [facility] Last Admin: 11/11/16 10:25 Dose: 20 mg Methylprednisolone Sodium Succinate (Solu-Medrol -) 40 mg IVPB Q8H-IV [facility] Last Admin: 11/11/16 10:26 Dose: 40 mg Potassium Chloride (K-Dur -) 20 meq PO DAILY [facility] Last Admin: 11/11/16 10:26 Dose: 20 meq Tiotropium [place] (Spiriva -) 1 puff IH DAILY [facility] Last Admin: 11/11/16 10:23 Dose: 1 puff A/P Acute Asthma Exacerbation Acute Bronchitis Atrial Fibrillation Mitral Regurgitation Pulmonary HTN Atelectasis - continue medrol at current dose - inhaled bronchodilators - rate controlled - lasix - DVT prophylaxis
--- NOTE | 2016-11-11 14:55 | PN ---
Progress Note, Physician History of Present Illness: The patient is a 76 year old female with a significant past medical history of CHF, and PAF on Coumadin, presenting to the Emergency Department with shortness of breath and cough for one week. The patients son reports that the patient was seen at her PCPs office on Friday for shortness of breath and cough when she was diagnosed with bronchitis and was prescribed antibiotics. The patient admits she has taken 3 days of antibiotics, though she has not taken any of the prescription today. The patients son reports that the patient has shortness of breath exacerbated by walking normally, though her shortness of breath has been worse over the past week. The patients son admits that the patient has orthopnea, and sleeps in a specially reclined chair, though she has not been able to sleep comfortably this past week. The patient admits that the cough is sometimes productive, producing phelgm. The patient denies any chest pain. The patient is compliant with her medications. The patient denies palpitations, chest pain, and diaphoresis. Patient denies fever, or chills. Patient denies nausea, vomiting, and diarrhea. Patient denies back pain, or neck pain. [facility] coronary angiogram 06/2015: luminal irregularities of LAD, LCx, RCA Rt lower extremity angiogram 06/2015: Rt common femoral, right superficial femoral, and right popliteal arteries have 30% stenoses. Medical history: Moderately severe mitral regurgitation HTN obesity Atrial fibrillation hyperlipidemia GERD iron-deficiency anemia - Current Medication List Current Medications: Active Medications Acetaminophen (Tylenol -) 650 mg PO Q4H PRN PRN Reason: FEVER OR PAIN Last Admin: 11/11/16 10:36 Dose: 650 mg Albuterol Sulfate (Ventolin 0.083% Nebulizer Soln -) 1 amp NEB Q4H PRN PRN Reason: SHORT OF BREATH/WHEEZING Budesonide/Formoterol Fumarate (Symbicort 160/4.5mcg -) 2 puff IH BID [facility] Last Admin: 11/11/16 10:22 Dose: 2 puff Diltiazem HCl (Cardizem Cd -) 120 mg PO BID [facility] Last Admin: 11/11/16 10:25 Dose: 120 mg Furosemide (Lasix -) 20 mg PO BID@0600,1400 [facility] Last Admin: 11/11/16 13:45 Dose: 20 mg Guaifenesin (Mucinex -) 600 mg PO BID [facility] Last Admin: 11/11/16 10:25 Dose: 600 mg Isosorbide Mononitrate (Imdur -) 30 mg PO DAILY [facility] Last Admin: 11/11/16 10:25 Dose: 30 mg Lactulose (Cephulac (Oral Use)) 20 gm PO DAILY PRN PRN Reason: CONSTIPATION Last Admin: 11/08/16 18:20 Dose: 20 gm Lisinopril (Prinivil) 20 mg PO BID [facility] Last Admin: 11/11/16 10:25 Dose: 20 mg Methylprednisolone Sodium Succinate (Solu-Medrol -) 40 mg IVPB Q8H-IV [facility] Last Admin: 11/11/16 10:26 Dose: 40 mg Potassium Chloride (K-Dur -) 20 meq PO DAILY [facility] Last Admin: 11/11/16 10:26 Dose: 20 meq Tiotropium [place] (Spiriva -) 1 puff IH DAILY [facility] Last Admin: 11/11/16 10:23 Dose: 1 puff - Objective Vital Signs: Vital Signs Temperature 97.7 F 11/11/16 10:00 Pulse Rate 96 H 11/11/16 10:00 Respiratory Rate 18 11/11/16 10:00 Blood Pressure 159/80 11/11/16 10:00 O2 Sat by Pulse Oximetry (%) 92 L 11/10/16 21:00 Eyes: Yes: WNL, Conjunctiva Clear, EOM Intact HENT: Yes: WNL, Atraumatic, Normocephalic Neck: Yes: WNL, Supple, Trachea Midline Cardiovascular: Yes: WNL, Regular Rate and Rhythm, Murmur Respiratory: Yes: WNL, Regular, CTA Bilaterally Gastrointestinal: Yes: WNL, Normal Bowel Sounds Genitourinary: Yes: WNL Musculoskeletal: Yes: WNL Extremities: Yes: WNL Edema: No Integumentary: Yes: WNL Neurological: Yes: WNL, Alert, Oriented ...Motor Strength: WNL Psychiatric: Yes: WNL Labs: CBC, BMP 11/08/16 06:50 11/10/16 05:40 INR, PTT INR 2.92 (0.82-1.09) H 11/11/16 06:47 Problem List - Problems (1) Acute asthmatic bronchitis Code(s): J45.909 - UNSPECIFIED ASTHMA, UNCOMPLICATED (2) Atrial fib/flutter, transient Code(s): [id number] - (3) Shortness of breath Code(s): R06.02 - SHORTNESS OF BREATH (4) Anemia Code(s): D64.9 - ANEMIA, UNSPECIFIED Qualifiers: Anemia type: unspecified type Qualified Code(s): D64.9 - Anemia, unspecified (5) Ankle pain, right Code(s): M25.571 - PAIN IN RIGHT ANKLE AND JOINTS OF RIGHT FOOT Qualifiers: Chronicity: unspecified Qualified Code(s): M25.571 - Pain in right ankle and joints of right foot (6) Anticoagulated on Coumadin Code(s): Z51.81 - ENCOUNTER FOR THERAPEUTIC DRUG LEVEL MONITORING Z79.01 - SPECIAL TRACKWORK BLACKSM[employer] (CURRENT) USE OF ANTICOAGULANTS (7) Atrial fibrillation Code(s): I48.91 - UNSPECIFIED ATRIAL FIBRILLATION Qualifiers: Atrial fibrillation type: chronic Qualified Code(s): I48.2 - Chronic atrial fibrillation (8) CHF (NYHA class II, ACC/AHA stage C) Code(s): I50.9 - HEART FAILURE, UNSPECIFIED (9) Congestive heart failure (CHF) Code(s): I50.9 - HEART FAILURE, UNSPECIFIED Qualifiers: Congestive heart failure type: systolic Congestive heart failure chronicity: acute on chronic Qualified Code(s): I50.23 - Acute on chronic systolic (congestive) heart failure (10) Hematoma following percutaneous transluminal coronary angioplasty Code(s): I97.610 - POSTPROC HEMOR OF A CIRC SYS ORG FOLLOWING A CARDIAC CATH (11) Hyperlipidemia Code(s): E78.5 - HYPERLIPIDEMIA, UNSPECIFIED (12) Hypertension Code(s): I10 - ESSENTIAL (PRIMARY) HYPERTENSION Qualifiers: Hypertension type: essential hypertension Qualified Code(s): I10 - Essential (primary) hypertension (13) Obesity (BMI 30-39.9) Code(s): E66.9 - OBESITY, UNSPECIFIED (14) Pre-syncope Code(s): R55 - SYNCOPE AND COLLAPSE (15) Stasis ulcer of right lower extremity Code(s): I83.019 - VARICOSE VEINS OF RIGHT LOWER EXTREMITY W ULCER OF UNSP SITE (16) Venous insufficiency Code(s): I87.2 - VENOUS INSUFFICIENCY (CHRONIC) (PERIPHERAL) Assessment/Plan 76 year old woman with a history of CHF, PAF on Coumadin, mod to severe MR, HTN , HLD, Anemia, non-obstructive CAD on cardiac cath 06/2015, non-obstructive PAD, admitted with cough and sob. SOB/Cough-bronchitis, h/o diastolic CHF, valvular heart disease -cont po Lasix -cont bronchodilators Afib-HR overall adequately controlled, occasional episodes of RVR -cont diltiazem and warfarin for goal INR 2-3 HTN-adequately controlled for now -cont current regimen [id number], stable -outpatient follow up Valvular heart disease-stable -outpatient follow up
[2016-11-11] MEDS ORDERED: WARFARIN NA 2.5 MG TABLET (FP) PO ONE (20:45)
--- NOTE | 2016-11-11 21:02 | PN ---
Progress Note, Physician History of Present Illness: Continues to have cough and wheezing which becomes worse at night. Was seen by . Pulmonary who advises to cont.IV Medrol. - Current Medication List Current Medications: Active Medications Acetaminophen (Tylenol -) 650 mg PO Q4H PRN PRN Reason: FEVER OR PAIN Last Admin: 11/11/16 10:36 Dose: 650 mg Albuterol Sulfate (Ventolin 0.083% Nebulizer Soln -) 1 amp NEB Q4H PRN PRN Reason: SHORT OF BREATH/WHEEZING Budesonide/Formoterol Fumarate (Symbicort 160/4.5mcg -) 2 puff IH BID [facility] Last Admin: 11/11/16 10:22 Dose: 2 puff Diltiazem HCl (Cardizem Cd -) 120 mg PO BID [facility] Last Admin: 11/11/16 10:25 Dose: 120 mg Furosemide (Lasix -) 20 mg PO BID@0600,1400 [facility] Last Admin: 11/11/16 13:45 Dose: 20 mg Guaifenesin (Mucinex -) 600 mg PO BID [facility] Last Admin: 11/11/16 10:25 Dose: 600 mg Isosorbide Mononitrate (Imdur -) 30 mg PO DAILY [facility] Last Admin: 11/11/16 10:25 Dose: 30 mg Lactulose (Cephulac (Oral Use)) 20 gm PO DAILY PRN PRN Reason: CONSTIPATION Last Admin: 11/08/16 18:20 Dose: 20 gm Lisinopril (Prinivil) 20 mg PO BID [facility] Last Admin: 11/11/16 10:25 Dose: 20 mg Methylprednisolone Sodium Succinate (Solu-Medrol -) 40 mg IVPB Q8H-IV [facility] Last Admin: 11/11/16 17:23 Dose: 40 mg Potassium Chloride (K-Dur -) 20 meq PO DAILY [facility] Last Admin: 11/11/16 10:26 Dose: 20 meq Tiotropium [place] (Spiriva -) 1 puff IH DAILY [facility] Last Admin: 11/11/16 10:23 Dose: 1 puff - Objective Vital Signs: Vital Signs Temperature 97.9 F 11/11/16 19:53 Pulse Rate 81 11/11/16 19:53 Respiratory Rate 18 11/11/16 19:53 Blood Pressure 122/68 11/11/16 19:53 O2 Sat by Pulse Oximetry (%) 96 11/11/16 09:00 Constitutional: Yes: Calm, Mild Distress Eyes: Yes: Conjunctiva Clear, EOM Intact HENT: Yes: WNL Neck: Yes: Supple Cardiovascular: Yes: Pulse Irregular, S2, Varicosities Respiratory: Yes: Rhonchi, Wheezes Gastrointestinal: Yes: Normal Bowel Sounds, Soft Genitourinary: Yes: WNL Musculoskeletal: Yes: Joint Stiffness Extremities: Yes: WNL Edema: No Peripheral Pulses WNL: Yes Integumentary: Yes: WNL Neurological: Yes: Alert, Oriented ...Motor Strength: WNL Psychiatric: Yes: Alert, Oriented Labs: CBC, BMP 11/08/16 06:50 11/10/16 05:40 INR, PTT INR 2.92 (0.82-1.09) H 11/11/16 06:47 Problem List - Problems (1) Hyperlipidemia Code(s): E78.5 - HYPERLIPIDEMIA, UNSPECIFIED (2) Hypertension Code(s): I10 - ESSENTIAL (PRIMARY) HYPERTENSION Qualifiers: Hypertension type: essential hypertension Qualified Code(s): I10 - Essential (primary) hypertension (3) Obesity (BMI 30-39.9) Code(s): E66.9 - OBESITY, UNSPECIFIED (4) Venous insufficiency Code(s): I87.2 - VENOUS INSUFFICIENCY (CHRONIC) (PERIPHERAL) (5) Acute asthmatic bronchitis Code(s): J45.909 - UNSPECIFIED ASTHMA, UNCOMPLICATED (6) Atrial fib/flutter, transient Code(s): [id number] - (7) Anticoagulated on Coumadin Code(s): Z51.81 - ENCOUNTER FOR THERAPEUTIC DRUG LEVEL MONITORING 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
[2016-11-12] MEDS: methylPREDNISolone NA SUCC 40 MG/1 ML VIAL IVPB SCH ×3 (01:40→22:12)
[2016-11-12] MEDS: FUROSEMIDE 20 MG TABLET (FP) PO SCH ×2 (05:10→14:34)
[2016-11-12] MEDS ORDERED: PT OWN MED DRAWER 7, Y5N ONE ×2 (09:11→21:09)
[2016-11-12] MEDS: ISOSORBIDE MONONITRATE 30 MG TAB.SR.24H (FP) PO SCH (09:33)
[2016-11-12] MEDS: LISINOPRIL 20 MG TABLET (FP) PO SCH ×2 (09:33→22:11)
[2016-11-12] MEDS: BUDESONIDE/FORMETEROL FUMARATE 160/4.5 mcg INHALER IH SCH ×2 (09:33→22:12)
[2016-11-12] MEDS: POTASSIUM CHLORIDE TABS 20 MEQ TABLET.ER (FP) PO SCH (09:33)
[2016-11-12] MEDS: guaiFENesin 600 MG TABLET.ER (FP) PO SCH ×2 (09:33→22:11)
[2016-11-12] MEDS: TIOTROPIUM BROMIDE 18 MCG/INH (DEVICE W/ 5 CAPSULES) IH SCH (09:34)
[2016-11-12] MEDS: LACTULOSE 20 GM/30 ML UDC (FOR ORAL USE ONLY) PO PRN (09:35)
--- NOTE | 2016-11-12 11:28 | PN ---
Progress Note (short form) - Note Progress Note: PULMONARY Still with persistent nonproductive cough, worse at night and wheezing which wakes her up from sleep. No fevers or chills. Last Vital Signs Temp Pulse Resp BP Pulse Ox 98.4 F 92 H 18 140/71 97 11/12/16 09:00 11/12/16 09:00 11/12/16 09:00 11/12/16 09:00 11/11/16 21:00 Gen: NAD at rest Heart: irregular Lung: scattered wheezes, rhonchi Abd: soft, nontender Ext: no edema CBC, BMP 11/08/16 06:50 11/10/16 05:40 Active Medications Acetaminophen (Tylenol -) 650 mg PO Q4H PRN PRN Reason: FEVER OR PAIN Last Admin: 11/11/16 10:36 Dose: 650 mg Albuterol Sulfate (Ventolin 0.083% Nebulizer Soln -) 1 amp NEB Q4H PRN PRN Reason: SHORT OF BREATH/WHEEZING Last Admin: 11/12/16 10:29 Dose: 1 amp Budesonide/Formoterol Fumarate (Symbicort 160/4.5mcg -) 2 puff IH BID [facility] Last Admin: 11/12/16 09:33 Dose: 2 puff Diltiazem HCl (Cardizem Cd -) 120 mg PO BID [facility] Last Admin: 11/12/16 09:33 Dose: 120 mg Furosemide (Lasix -) 20 mg PO BID@0600,1400 [facility] Last Admin: 11/12/16 05:10 Dose: 20 mg Guaifenesin (Mucinex -) 600 mg PO BID [facility] Last Admin: 11/12/16 09:33 Dose: 600 mg Isosorbide Mononitrate (Imdur -) 30 mg PO DAILY [facility] Last Admin: 11/12/16 09:33 Dose: 30 mg Lactulose (Cephulac (Oral Use)) 20 gm PO DAILY PRN PRN Reason: CONSTIPATION Last Admin: 11/12/16 09:35 Dose: 20 gm Lisinopril (Prinivil) 20 mg PO BID [facility] Last Admin: 11/12/16 09:33 Dose: 20 mg Methylprednisolone Sodium Succinate (Solu-Medrol -) 40 mg IVPB Q8H-IV [facility] Last Admin: 11/12/16 09:33 Dose: 40 mg Potassium Chloride (K-Dur -) 20 meq PO DAILY [facility] Last Admin: 11/12/16 09:33 Dose: 20 meq Tiotropium [place] (Spiriva -) 1 puff IH DAILY [facility] Last Admin: 11/12/16 09:34 Dose: 1 puff A/P Acute Asthma Exacerbation Acute Bronchitis Atrial Fibrillation Mitral Regurgitation Pulmonary HTN Atelectasis - will decrease medrol to q12h dosing - inhaled bronchodilators - rate controlled - lasix - DVT prophylaxis
[2016-11-12] MEDS: ALBUTEROL SO4 0.083% IH SOL 2.5 MG/3 ML VIAL.NEB. NEB SCH ×2 (14:58→23:23)
--- NOTE | 2016-11-12 17:00 | PN ---
Progress Note, Physician Chief Complaint: Pt A&Ox3; sitting in chair, where she feels better; still with occasional cough. History of Present Illness: The patient is a 76 year old white female (trevor Cole), with a significant past medical history of diastolic CHF, PAF (on Coumadin), presenting to the Emergency Department with shortness of breath and cough for one week. The patients son reports that the patient was seen at her PCPs office on Friday for shortness of breath and cough when she was diagnosed with bronchitis and was prescribed antibiotics. The patient admits she has taken 3 days of antibiotics, though she has not taken any of the prescription today. The patients son reports that the patient has shortness of breath exacerbated by walking normally, though her shortness of breath has been worse over the past week. The patients son admits that the patient has orthopnea, and sleeps in a specially reclined chair, though she has not been able to sleep comfortably this past week. The patient admits that the cough is sometimes productive, producing phelgm. The patient denies any chest pain. The patient is compliant with her medications. The patient denies palpitations, chest pain, and diaphoresis. Patient denies fever, or chills. Patient denies nausea, vomiting, and diarrhea. Patient denies back pain, or neck pain. PCP: Dr. Jennings [phone] - Current Medication List Current Medications: Active Medications Acetaminophen (Tylenol -) 650 mg PO Q4H PRN PRN Reason: FEVER OR PAIN Last Admin: 11/11/16 10:36 Dose: 650 mg Albuterol Sulfate (Ventolin 0.083% Nebulizer Soln -) 1 amp NEB Q4H PRN PRN Reason: SHORT OF BREATH/WHEEZING Last Admin: 11/12/16 10:29 Dose: 1 amp Albuterol Sulfate (Ventolin 0.083% Nebulizer Soln -) 1 amp NEB QIDR [facility] Last Admin: 11/12/16 14:58 Dose: Not Given Budesonide/Formoterol Fumarate (Symbicort 160/4.5mcg -) 2 puff IH BID [facility] Last Admin: 11/12/16 09:33 Dose: 2 puff Diltiazem HCl (Cardizem Cd -) 120 mg PO BID [facility] Last Admin: 11/12/16 09:33 Dose: 120 mg Furosemide (Lasix -) 20 mg PO BID@0600,1400 [facility] Last Admin: 11/12/16 14:34 Dose: 20 mg Guaifenesin (Mucinex -) 600 mg PO BID [facility] Last Admin: 11/12/16 09:33 Dose: 600 mg Isosorbide Mononitrate (Imdur -) 30 mg PO DAILY [facility] Last Admin: 11/12/16 09:33 Dose: 30 mg Lactulose (Cephulac (Oral Use)) 20 gm PO DAILY PRN PRN Reason: CONSTIPATION Last Admin: 11/12/16 09:35 Dose: 20 gm Lisinopril (Prinivil) 20 mg PO BID [facility] Last Admin: 11/12/16 09:33 Dose: 20 mg Methylprednisolone Sodium Succinate (Solu-Medrol -) 40 mg IVPB Q12H [facility] Potassium Chloride (K-Dur -) 20 meq PO DAILY [facility] Last Admin: 11/12/16 09:33 Dose: 20 meq Tiotropium [place] (Spiriva -) 1 puff IH DAILY [facility] Last Admin: 11/12/16 09:34 Dose: 1 puff - Objective Vital Signs: Vital Signs Temperature 98.3 F 11/12/16 14:36 Pulse Rate 83 11/12/16 14:36 Respiratory Rate 18 11/12/16 14:36 Blood Pressure 122/58 11/12/16 14:36 O2 Sat by Pulse Oximetry (%) 97 11/11/16 21:00 Constitutional: Yes: No Distress Eyes: Yes: WNL HENT: Yes: WNL Neck: Yes: Supple Cardiovascular: Yes: Pulse Irregular, S1 (varies in intensity) Respiratory: Yes: Regular, Diminished, Rhonchi Gastrointestinal: Yes: Soft ...Rectal Exam: Yes: Deferred Genitourinary: No: Anuria Breast(s): Yes: WNL Musculoskeletal: Yes: Muscle Weakness Extremities: Yes: Cool Edema: No Peripheral Pulses WNL: Yes Integumentary: Yes: WNL Neurological: Yes: WNL Psychiatric: Yes: WNL Labs: CBC, BMP 11/08/16 06:50 11/10/16 05:40 INR, PTT INR 2.92 (0.82-1.09) H 11/11/16 06:47 Abnormal Lab Results 11/13/16 11/13/16 11/13/16 06:18 06:18 06:18 WBC 12.2 H D RDW 15.9 H Neutrophils % 93.1 H Lymphocytes % 2.1 L D INR 3.27 H BUN 31 H Random Glucose 131 H Calcium 8.1 L AST 10 L Problem List - Problems (1) Acute asthmatic bronchitis Assessment/Plan: CT chest: bilateral atelectasis, most marked in LLL. On solumedrol and Ventolin. On antibiotics (Rocephin and Zithromax). Change to PO steroids and antibiotics per ID and agitator operator (IV soludetrol dose was lowered 11/12/16). Code(s): J45.909 - UNSPECIFIED ASTHMA, UNCOMPLICATED (2) Acute on chronic diastolic (congestive) heart failure Assessment/Plan: On diltiazem CD bid (HTN; CHF; AF), lisinopril. Furosemide decreased to 20 mg bid (rising BUN; no JVD; no acute pathology on CXR ). F/u BUN/Cr, electrolytes (K+ WNL; f/u in am; urosemide now decreased; on ACEI), daily weight, Is and Os. Code(s): I50.33 - ACUTE ON CHRONIC DIASTOLIC (CONGESTIVE) HEART FAILURE (3) Anemia Code(s): D64.9 - ANEMIA, UNSPECIFIED Qualifiers: Anemia type: unspecified type Qualified Code(s): D64.9 - Anemia, unspecified (4) Atrial fibrillation Assessment/Plan: on diltiazem for HR. On warfarin; INR 2.92 (keep 2-3). Code(s): I48.91 - UNSPECIFIED ATRIAL FIBRILLATION Qualifiers: Atrial fibrillation type: chronic Qualified Code(s): I48.2 - Chronic atrial fibrillation (5) Shortness of breath Code(s): R06.02 - SHORTNESS OF BREATH (6) Hyperlipidemia Code(s): E78.5 - HYPERLIPIDEMIA, UNSPECIFIED (7) Hypertension Code(s): I10 - ESSENTIAL (PRIMARY) HYPERTENSION Qualifiers: Hypertension type: essential hypertension Qualified Code(s): I10 - Essential (primary) hypertension (8) Venous insufficiency Code(s): I87.2 - VENOUS INSUFFICIENCY (CHRONIC) (PERIPHERAL) (9) Stasis ulcer of left lower extremity Code(s): I83.029 - VARICOSE VEINS OF LEFT LOWER EXTREMITY W ULCER OF UNSP SITE
[2016-11-12] MEDS ORDERED: WARFARIN NA 2 MG TABLET (UD) PO ONE (21:12)
--- NOTE | 2016-11-12 21:16 | PN ---
Progress Note, Physician History of Present Illness: Continues to have cough and wheezing. Denies chest pain, denies SOB at rest but HANSEN. - Current Medication List Current Medications: Active Medications Acetaminophen (Tylenol -) 650 mg PO Q4H PRN PRN Reason: FEVER OR PAIN Last Admin: 11/11/16 10:36 Dose: 650 mg Albuterol Sulfate (Ventolin 0.083% Nebulizer Soln -) 1 amp NEB Q4H PRN PRN Reason: SHORT OF BREATH/WHEEZING Last Admin: 11/12/16 10:29 Dose: 1 amp Albuterol Sulfate (Ventolin 0.083% Nebulizer Soln -) 1 amp NEB QIDR [facility] Last Admin: 11/12/16 14:58 Dose: Not Given Budesonide/Formoterol Fumarate (Symbicort 160/4.5mcg -) 2 puff IH BID [facility] Last Admin: 11/12/16 09:33 Dose: 2 puff Diltiazem HCl (Cardizem Cd -) 120 mg PO BID [facility] Last Admin: 11/12/16 09:33 Dose: 120 mg Furosemide (Lasix -) 20 mg PO BID@0600,1400 [facility] Last Admin: 11/12/16 14:34 Dose: 20 mg Guaifenesin (Mucinex -) 600 mg PO BID [facility] Last Admin: 11/12/16 09:33 Dose: 600 mg Isosorbide Mononitrate (Imdur -) 30 mg PO DAILY [facility] Last Admin: 11/12/16 09:33 Dose: 30 mg Lactulose (Cephulac (Oral Use)) 20 gm PO DAILY PRN PRN Reason: CONSTIPATION Last Admin: 11/12/16 09:35 Dose: 20 gm Lisinopril (Prinivil) 20 mg PO BID [facility] Last Admin: 11/12/16 09:33 Dose: 20 mg Methylprednisolone Sodium Succinate (Solu-Medrol -) 40 mg IVPB Q12H [facility] Potassium Chloride (K-Dur -) 20 meq PO DAILY [facility] Last Admin: 11/12/16 09:33 Dose: 20 meq Tiotropium [place] (Spiriva -) 1 puff IH DAILY [facility] Last Admin: 11/12/16 09:34 Dose: 1 puff Warfarin Sodium (Coumadin -) 4 mg PO NOW ONE Stop: 11/12/16 21:13 - Objective Vital Signs: Vital Signs Temperature 98.3 F 11/12/16 14:36 Pulse Rate 83 11/12/16 14:36 Respiratory Rate 18 11/12/16 14:36 Blood Pressure 122/58 11/12/16 14:36 O2 Sat by Pulse Oximetry (%) 97 11/11/16 21:00 Constitutional: Yes: No Distress, Calm Eyes: Yes: WNL HENT: Yes: WNL Neck: Yes: WNL, Supple Cardiovascular: Yes: Pulse Irregular, S2 Respiratory: Yes: Rhonchi, Wheezes Gastrointestinal: Yes: Normal Bowel Sounds, Soft Genitourinary: Yes: WNL Musculoskeletal: Yes: Joint Stiffness Extremities: Yes: Deformity, Erythema Edema: No Peripheral Pulses WNL: Yes Neurological: Yes: Alert, Oriented, Babinski negative, Cran Nerves II-XII Intact ...Motor Strength: WNL Psychiatric: Yes: Alert, Oriented Labs: CBC, BMP 11/08/16 06:50 11/10/16 05:40 INR, PTT INR 2.92 (0.82-1.09) H 11/11/16 06:47 Problem List - Problems (1) Hyperlipidemia Code(s): E78.5 - HYPERLIPIDEMIA, UNSPECIFIED (2) Hypertension Code(s): I10 - ESSENTIAL (PRIMARY) HYPERTENSION Qualifiers: Hypertension type: essential hypertension Qualified Code(s): I10 - Essential (primary) hypertension (3) Obesity (BMI 30-39.9) Code(s): E66.9 - OBESITY, UNSPECIFIED (4) Venous insufficiency Code(s): I87.2 - VENOUS INSUFFICIENCY (CHRONIC) (PERIPHERAL) (5) Acute asthmatic bronchitis Assessment/Plan: continues to wheeze even with IV steroids Code(s): J45.909 - UNSPECIFIED ASTHMA, UNCOMPLICATED (6) Atrial fib/flutter, transient Code(s): [id number] - (7) Anticoagulated on Coumadin Code(s): Z51.81 - ENCOUNTER FOR THERAPEUTIC DRUG LEVEL MONITORING Z79.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 if the wheezing improves can be switched to PO steroids and possible discharge in the next 24 to 48 hours.
[2016-11-12] MEDS: ACETAMINOPHEN 325 MG TABLET (FP) PO PRN (22:10)
[2016-11-13] MEDS: FUROSEMIDE 20 MG TABLET (FP) PO SCH ×2 (06:14→14:16)
[2016-11-13] MEDS: ALBUTEROL SO4 0.083% IH SOL 2.5 MG/3 ML VIAL.NEB. NEB SCH ×3 (07:05→17:51)
[2016-11-13 07:51] LABS: BASOPHIL 0.2 % (0-2.0); MCH 31.2 pg (25.7-33.7); MEAN CELL VOLUME 94.5 fl (80-96); MEAN PLT VOLUME 7.9 fl (7.5-11.1); NEUTROPHILS 93.1 % (42.8-82.8); PLATELET COUNT 242 K/MM3 (134-434); RDW 15.9 % (11.6-15.6); WHITE BLOOD COUNT 12.2 K/mm3 (4.0-10.0)
[2016-11-13 08:30] LABS: INR 3.27 (0.82-1.09); PROTHROMBIN TIME (PATIENT) 36.9 SEC (9.98-11.88)
[2016-11-13 09:16] LABS: ALBUMIN 3.5 g/dl (3.4-5.0); ALK PHOS 53 U/L (45-117); ANION GAP 9 (8-16); BILIRUBIN,TOTAL 0.8 mg/dL (0.2-1.0); CALCIUM 8.1 mg/dL (8.5-10.1); CO2 28 mmol/L (21-32); CREATININE 0.8 mg/dL (0.55-1.02); GLUCOSE,RANDOM 131 mg/dL (74-106); SGOT/AST 10 U/L (15-37); SGPT/ALT 31 U/L (12-78); TOT PROT 6.6 g/dl (6.4-8.2)
[2016-11-13] MEDS ORDERED: PT OWN MED DRAWER 7, Y5N ONE ×2 (10:43→17:53)
[2016-11-13] MEDS: BUDESONIDE/FORMETEROL FUMARATE 160/4.5 mcg INHALER IH SCH ×2 (10:47→21:10)
[2016-11-13] MEDS: TIOTROPIUM BROMIDE 18 MCG/INH (DEVICE W/ 5 CAPSULES) IH SCH (10:47)
[2016-11-13] MEDS: LISINOPRIL 20 MG TABLET (FP) PO SCH ×2 (10:48→21:10)
[2016-11-13] MEDS: ISOSORBIDE MONONITRATE 30 MG TAB.SR.24H (FP) PO SCH (10:53)
[2016-11-13] MEDS: guaiFENesin 600 MG TABLET.ER (FP) PO SCH ×2 (10:53→21:09)
[2016-11-13] MEDS: methylPREDNISolone NA SUCC 40 MG/1 ML VIAL IVPB SCH (10:53)
[2016-11-13] MEDS: POTASSIUM CHLORIDE TABS 20 MEQ TABLET.ER (FP) PO SCH (10:53)
--- NOTE | 2016-11-13 12:08 | PN ---
Progress Note, Physician History of Present Illness: The patient is a 76 year old female with a significant past medical history of CHF, and PAF on Coumadin, presenting to the Emergency Department with shortness of breath and cough for one week. The patients son reports that the patient was seen at her PCPs office on Friday for shortness of breath and cough when she was diagnosed with bronchitis and was prescribed antibiotics. The patient admits she has taken 3 days of antibiotics, though she has not taken any of the prescription today. The patients son reports that the patient has shortness of breath exacerbated by walking normally, though her shortness of breath has been worse over the past week. The patients son admits that the patient has orthopnea, and sleeps in a specially reclined chair, though she has not been able to sleep comfortably this past week. The patient admits that the cough is sometimes productive, producing phelgm. The patient denies any chest pain. The patient is compliant with her medications. The patient denies palpitations, chest pain, and diaphoresis. Patient denies fever, or chills. Patient denies nausea, vomiting, and diarrhea. Patient denies back pain, or neck pain. [facility] coronary angiogram 06/2015: luminal irregularities of LAD, LCx, RCA Rt lower extremity angiogram 06/2015: Rt common femoral, right superficial femoral, and right popliteal arteries have 30% stenoses. Medical history: Moderately severe mitral regurgitation HTN obesity Atrial fibrillation hyperlipidemia GERD iron-deficiency anemia - Current Medication List Current Medications: Active Medications Acetaminophen (Tylenol -) 650 mg PO Q4H PRN PRN Reason: FEVER OR PAIN Last Admin: 11/12/16 22:10 Dose: 650 mg Albuterol Sulfate (Ventolin 0.083% Nebulizer Soln -) 1 amp NEB Q4H PRN PRN Reason: SHORT OF BREATH/WHEEZING Last Admin: 11/12/16 10:29 Dose: 1 amp Albuterol Sulfate (Ventolin 0.083% Nebulizer Soln -) 1 amp NEB QIDR [facility] Last Admin: 11/13/16 11:30 Dose: 1 amp Budesonide/Formoterol Fumarate (Symbicort 160/4.5mcg -) 2 puff IH BID [facility] Last Admin: 11/13/16 10:47 Dose: 2 puff Diltiazem HCl (Cardizem Cd -) 120 mg PO BID [facility] Last Admin: 11/13/16 10:53 Dose: 120 mg Furosemide (Lasix -) 20 mg PO BID@0600,1400 [facility] Last Admin: 11/13/16 06:14 Dose: 20 mg Guaifenesin (Mucinex -) 600 mg PO BID [facility] Last Admin: 11/13/16 10:53 Dose: 600 mg Isosorbide Mononitrate (Imdur -) 30 mg PO DAILY [facility] Last Admin: 11/13/16 10:53 Dose: 30 mg Lactulose (Cephulac (Oral Use)) 20 gm PO DAILY PRN PRN Reason: CONSTIPATION Last Admin: 11/12/16 09:35 Dose: 20 gm Lisinopril (Prinivil) 20 mg PO BID [facility] Last Admin: 11/13/16 10:48 Dose: 20 mg Methylprednisolone Sodium Succinate (Solu-Medrol -) 40 mg IVPB Q12H [facility] Last Admin: 11/13/16 10:53 Dose: 40 mg Potassium Chloride (K-Dur -) 20 meq PO DAILY [facility] Last Admin: 11/13/16 10:53 Dose: 20 meq Tiotropium [place] (Spiriva -) 1 puff IH DAILY [facility] Last Admin: 11/13/16 10:47 Dose: 1 puff - Objective Vital Signs: Vital Signs Temperature 98.2 F 11/13/16 06:00 Pulse Rate 97 H 11/13/16 06:00 Respiratory Rate 20 11/13/16 06:00 Blood Pressure 121/71 11/13/16 06:00 O2 Sat by Pulse Oximetry (%) 95 11/12/16 21:00 Eyes: Yes: WNL, Conjunctiva Clear, EOM Intact HENT: Yes: WNL, Atraumatic, Normocephalic Neck: Yes: WNL, Supple, Trachea Midline Cardiovascular: Yes: WNL, Regular Rate and Rhythm, Murmur Respiratory: Yes: WNL, Regular, CTA Bilaterally Gastrointestinal: Yes: WNL, Normal Bowel Sounds Genitourinary: Yes: WNL Musculoskeletal: Yes: WNL Extremities: Yes: WNL Edema: No Integumentary: Yes: WNL Neurological: Yes: WNL, Alert, Oriented ...Motor Strength: WNL Psychiatric: Yes: WNL Labs: CBC, BMP 11/13/16 06:18 11/13/16 06:18 INR, PTT INR 3.27 (0.82-1.09) H 11/13/16 06:18 Problem List - Problems (1) Acute asthmatic bronchitis Code(s): J45.909 - UNSPECIFIED ASTHMA, UNCOMPLICATED (2) Atrial fib/flutter, transient Code(s): [id number] - (3) Shortness of breath Code(s): R06.02 - SHORTNESS OF BREATH (4) Anemia Code(s): D64.9 - ANEMIA, UNSPECIFIED Qualifiers: Anemia type: unspecified type Qualified Code(s): D64.9 - Anemia, unspecified (5) Ankle pain, right Code(s): M25.571 - PAIN IN RIGHT ANKLE AND JOINTS OF RIGHT FOOT Qualifiers: Chronicity: unspecified Qualified Code(s): M25.571 - Pain in right ankle and joints of right foot (6) Anticoagulated on Coumadin Code(s): Z51.81 - ENCOUNTER FOR THERAPEUTIC DRUG LEVEL MONITORING Z79.01 - GROUP HOME (CURRENT) USE OF ANTICOAGULANTS (7) Atrial fibrillation Code(s): I48.91 - UNSPECIFIED ATRIAL FIBRILLATION Qualifiers: Atrial fibrillation type: chronic Qualified Code(s): I48.2 - Chronic atrial fibrillation (8) CHF (NYHA class II, ACC/AHA stage C) Code(s): I50.9 - HEART FAILURE, UNSPECIFIED (9) Congestive heart failure (CHF) Code(s): I50.9 - HEART FAILURE, UNSPECIFIED Qualifiers: Congestive heart failure type: systolic Congestive heart failure chronicity: acute on chronic Qualified Code(s): I50.23 - Acute on chronic systolic (congestive) heart failure (10) Hematoma following percutaneous transluminal coronary angioplasty Code(s): I97.610 - POSTPROC HEMOR OF A CIRC SYS ORG FOLLOWING A CARDIAC CATH (11) Hyperlipidemia Code(s): E78.5 - HYPERLIPIDEMIA, UNSPECIFIED (12) Hypertension Code(s): I10 - ESSENTIAL (PRIMARY) HYPERTENSION Qualifiers: Hypertension type: essential hypertension Qualified Code(s): I10 - Essential (primary) hypertension (13) Obesity (BMI 30-39.9) Code(s): E66.9 - OBESITY, UNSPECIFIED (14) Pre-syncope Code(s): R55 - SYNCOPE AND COLLAPSE (15) Stasis ulcer of right lower extremity Code(s): I83.019 - VARICOSE VEINS OF RIGHT LOWER EXTREMITY W ULCER OF UNSP SITE (16) Venous insufficiency Code(s): I87.2 - VENOUS INSUFFICIENCY (CHRONIC) (PERIPHERAL) Assessment/Plan (1) Acute asthmatic bronchitis Assessment/Plan: CT chest: bilateral atelectasis, most marked in LLL. On solumedrol and Ventolin. On antibiotics (Rocephin and Zithromax). Change to PO steroids and antibiotics per ID and black top machine operator (IV soludetrol dose was lowered 11/12/16). Code(s): J45.909 - UNSPECIFIED ASTHMA, UNCOMPLICATED (2) Acute on chronic diastolic (congestive) heart failure Assessment/Plan: On diltiazem CD bid (HTN; CHF; AF), lisinopril. Furosemide decreased to 20 mg bid (rising BUN; no JVD; no acute pathology on CXR ). F/u BUN/Cr, electrolytes (K+ WNL; f/u in am; urosemide now decreased; on ACEI), daily weight, Is and Os. Code(s): I50.33 - ACUTE ON CHRONIC DIASTOLIC (CONGESTIVE) HEART FAILURE (3) Anemia Code(s): D64.9 - ANEMIA, UNSPECIFIED Qualifiers: Anemia type: unspecified type Qualified Code(s): D64.9 - Anemia, unspecified (4) Atrial fibrillation Assessment/Plan: on diltiazem for HR. On warfarin; INR 2.92 (keep 2-3). Code(s): I48.91 - UNSPECIFIED ATRIAL FIBRILLATION Qualifiers: Atrial fibrillation type: chronic Qualified Code(s): I48.2 - Chronic atrial fibrillation (5) Shortness of breath Code(s): R06.02 - SHORTNESS OF BREATH (6) Hyperlipidemia Code(s): E78.5 - HYPERLIPIDEMIA, UNSPECIFIED (7) Hypertension Code(s): I10 - ESSENTIAL (PRIMARY) HYPERTENSION Qualifiers: Hypertension type: essential hypertension Qualified Code(s): I10 - Essential (primary) hypertension (8) Venous insufficiency Code(s): I87.2 - VENOUS INSUFFICIENCY (CHRONIC) (PERIPHERAL) (9) Stasis ulcer of left lower extremity Code(s): I83.029 - VARICOSE VEINS OF LEFT LOWER EXTREMITY W ULCER OF UNSP SITE
--- NOTE | 2016-11-13 15:59 | PN ---
Progress Note (short form) - Note Progress Note: PULMONARY OOB TO CHAIR SUBJECTIVE IMPROVEMENT VSS/AFEBRILE ANICTERIC SCATTERED B/L RHONCHI S1S2 BS+ DIMINISHED LOWER EXT EDEMA LABS/MEDS/NOTES/IMAGING/MICRO REVIEWED A/P Acute Asthma Exacerbation Acute Bronchitis Atrial Fibrillation Mitral Regurgitation Pulmonary HTN Atelectasis - same medrol dose q12h for now - inhaled bronchodilators - rate controlled - lasix - DVT prophylaxis Angle CLARK MD
[2016-11-13] MEDS: LACTULOSE 20 GM/30 ML UDC (FOR ORAL USE ONLY) PO PRN (21:09)
[2016-11-13] MEDS: predniSONE 20 MG TABLET (UD) PO SCH (21:10)
--- NOTE | 2016-11-13 23:22 | PN ---
Progress Note, Physician History of Present Illness: Feels better and the cough has diminished. Wheezing has diminished. - Current Medication List Current Medications: Active Medications Acetaminophen (Tylenol -) 650 mg PO Q4H PRN PRN Reason: FEVER OR PAIN Last Admin: 11/12/16 22:10 Dose: 650 mg Albuterol Sulfate (Ventolin 0.083% Nebulizer Soln -) 1 amp NEB Q4H PRN PRN Reason: SHORT OF BREATH/WHEEZING Last Admin: 11/12/16 10:29 Dose: 1 amp Albuterol Sulfate (Ventolin 0.083% Nebulizer Soln -) 1 amp NEB QIDR [facility] Last Admin: 11/13/16 17:51 Dose: 1 amp Budesonide/Formoterol Fumarate (Symbicort 160/4.5mcg -) 2 puff IH BID [facility] Last Admin: 11/13/16 21:10 Dose: 2 puff Diltiazem HCl (Cardizem Cd -) 120 mg PO BID [facility] Last Admin: 11/13/16 21:10 Dose: 120 mg Furosemide (Lasix -) 20 mg PO BID@0600,1400 [facility] Last Admin: 11/13/16 14:16 Dose: 20 mg Guaifenesin (Mucinex -) 600 mg PO BID [facility] Last Admin: 11/13/16 21:09 Dose: 600 mg Isosorbide Mononitrate (Imdur -) 30 mg PO DAILY [facility] Last Admin: 11/13/16 10:53 Dose: 30 mg Lactulose (Cephulac (Oral Use)) 20 gm PO DAILY PRN PRN Reason: CONSTIPATION Last Admin: 11/13/16 21:09 Dose: 20 gm Lisinopril (Prinivil) 20 mg PO BID [facility] Last Admin: 11/13/16 21:10 Dose: 20 mg Potassium Chloride (K-Dur -) 20 meq PO DAILY [facility] Last Admin: 11/13/16 10:53 Dose: 20 meq Prednisone (Deltasone -) 20 mg PO BID [facility] Last Admin: 11/13/16 21:10 Dose: 20 mg Tiotropium [place] (Spiriva -) 1 puff IH DAILY [facility] Last Admin: 11/13/16 10:47 Dose: 1 puff - Objective Vital Signs: Vital Signs Temperature 97.6 F 11/13/16 19:13 Pulse Rate 80 11/13/16 19:13 Respiratory Rate 20 11/13/16 19:13 Blood Pressure 156/74 11/13/16 19:13 O2 Sat by Pulse Oximetry (%) 94 L 11/13/16 09:00 Constitutional: Yes: Well Nourished, No Distress, Calm Eyes: Yes: WNL HENT: Yes: WNL Neck: Yes: Supple Cardiovascular: Yes: Pulse Irregular, S2 Respiratory: Yes: Regular, CTA Bilaterally, On Nasal O2 Gastrointestinal: Yes: Normal Bowel Sounds, Soft Genitourinary: Yes: WNL Musculoskeletal: Yes: WNL Extremities: Yes: WNL, Internal Rotation Edema: Yes Edema: LLE: 1+, RLE: 1+ Peripheral Pulses WNL: Yes Integumentary: Yes: WNL Neurological: Yes: Alert, Oriented, Cran Nerves II-XII Intact ...Motor Strength: WNL Psychiatric: Yes: Alert, Oriented Labs: CBC, BMP 11/13/16 06:18 11/13/16 06:18 INR, PTT INR 3.27 (0.82-1.09) H 11/13/16 06:18 Problem List - Problems (1) Hyperlipidemia Code(s): E78.5 - HYPERLIPIDEMIA, UNSPECIFIED (2) Hypertension Code(s): I10 - ESSENTIAL (PRIMARY) HYPERTENSION Qualifiers: Hypertension type: essential hypertension Qualified Code(s): I10 - Essential (primary) hypertension (3) Obesity (BMI 30-39.9) Code(s): E66.9 - OBESITY, UNSPECIFIED (4) Venous insufficiency Code(s): I87.2 - VENOUS INSUFFICIENCY (CHRONIC) (PERIPHERAL) (5) Acute asthmatic bronchitis Code(s): J45.909 - UNSPECIFIED ASTHMA, UNCOMPLICATED (6) Atrial fib/flutter, transient Code(s): DCH1001 - (7) Anticoagulated on Coumadin Code(s): Z51.81 - ENCOUNTER FOR THERAPEUTIC DRUG LEVEL MONITORING Z79.01 - INCIDENT RESPONSE CONSULTANT (CURRENT) USE OF ANTICOAGULANTS (8) Atrial fibrillation Code(s): I48.91 - UNSPECIFIED ATRIAL FIBRILLATION Qualifiers: Atrial fibrillation type: chronic Qualified Code(s): I48.2 - Chronic atrial fibrillation (9) CHF (NYHA class II, ACC/AHA stage C) Code(s): I50.9 - HEART FAILURE, UNSPECIFIED Assessment/Plan Will switch to PO Prednisone and observe . Willcont inhalation treatment and if stable could be discharge.
[2016-11-14] MEDS: ALBUTEROL SO4 0.083% IH SOL 2.5 MG/3 ML VIAL.NEB. NEB SCH ×3 (00:01→11:13)
[2016-11-14] MEDS: FUROSEMIDE 20 MG TABLET (FP) PO SCH ×2 (06:01→14:00)
[2016-11-14 08:57] LABS: INR 2.95 (0.82-1.09); PROTHROMBIN TIME (PATIENT) 33.2 SEC (9.98-11.88)
[2016-11-14] MEDS ORDERED: PT OWN MED DRAWER 7, Y5N ONE ×2 (10:31→12:55)
[2016-11-14] MEDS: ISOSORBIDE MONONITRATE 30 MG TAB.SR.24H (FP) PO SCH (10:51)
[2016-11-14] MEDS: guaiFENesin 600 MG TABLET.ER (FP) PO SCH (10:51)
[2016-11-14] MEDS: POTASSIUM CHLORIDE TABS 20 MEQ TABLET.ER (FP) PO SCH (10:51)
[2016-11-14] MEDS: LISINOPRIL 20 MG TABLET (FP) PO SCH (10:51)
[2016-11-14] MEDS: predniSONE 20 MG TABLET (UD) PO SCH (10:51)
[2016-11-14] MEDS: BUDESONIDE/FORMETEROL FUMARATE 160/4.5 mcg INHALER IH SCH (10:52)
--- NOTE | 2016-11-14 12:40 | PN ---
Progress Note (short form) - Note Progress Note: PULMONARY Breathing continues to improve, close to baseline. No fevers or chills. + nonproductive cough. Last Vital Signs Temp Pulse Resp BP Pulse Ox 97.8 F 95 H 20 112/74 98 11/14/16 10:00 11/14/16 10:00 11/14/16 10:00 11/14/16 10:00 11/13/16 21:00 Gen: NAD at rest Heart: irregular Lung: no wheezes appreciated Abd: soft, nontender Ext: no edema CBC, BMP 11/13/16 06:18 11/13/16 06:18 Active Medications Acetaminophen (Tylenol -) 650 mg PO Q4H PRN PRN Reason: FEVER OR PAIN Last Admin: 11/12/16 22:10 Dose: 650 mg Albuterol Sulfate (Ventolin 0.083% Nebulizer Soln -) 1 amp NEB Q4H PRN PRN Reason: SHORT OF BREATH/WHEEZING Last Admin: 11/12/16 10:29 Dose: 1 amp Albuterol Sulfate (Ventolin 0.083% Nebulizer Soln -) 1 amp NEB QIDR [facility] Last Admin: 11/14/16 11:13 Dose: 1 amp Budesonide/Formoterol Fumarate (Symbicort 160/4.5mcg -) 2 puff IH BID [facility] Last Admin: 11/14/16 10:52 Dose: 2 puff Diltiazem HCl (Cardizem Cd -) 120 mg PO BID [facility] Last Admin: 11/14/16 10:51 Dose: 120 mg Furosemide (Lasix -) 20 mg PO BID@0600,1400 [facility] Last Admin: 11/14/16 06:01 Dose: 20 mg Guaifenesin (Mucinex -) 600 mg PO BID [facility] Last Admin: 11/14/16 10:51 Dose: 600 mg Isosorbide Mononitrate (Imdur -) 30 mg PO DAILY [facility] Last Admin: 11/14/16 10:51 Dose: 30 mg Lactulose (Cephulac (Oral Use)) 20 gm PO DAILY PRN PRN Reason: CONSTIPATION Last Admin: 11/13/16 21:09 Dose: 20 gm Lisinopril (Prinivil) 20 mg PO BID [facility] Last Admin: 11/14/16 10:51 Dose: 20 mg Potassium Chloride (K-Dur -) 20 meq PO DAILY [facility] Last Admin: 11/14/16 10:51 Dose: 20 meq Prednisone (Deltasone -) 20 mg PO BID [facility] Last Admin: 11/14/16 10:51 Dose: 20 mg Tiotropium [place] (Spiriva -) 1 puff IH DAILY [facility] Last Admin: 11/13/16 10:47 Dose: 1 puff A/P Acute Asthma Exacerbation Acute Bronchitis Atrial Fibrillation Mitral Regurgitation Pulmonary HTN Atelectasis - agree with prednisone, taper as outpt - inhaled bronchodilators - rate controlled - lasix - DVT prophylaxis - can d/c home from pulmonary standpoint
[2016-11-14] MEDS: TIOTROPIUM BROMIDE 18 MCG/INH (DEVICE W/ 5 CAPSULES) IH SCH (12:52)
--- NOTE | 2016-11-14 13:42 | PN ---
Progress Note, Physician Chief Complaint: Pt A&Ox3; sitting in chair, where she feels much better3. Her cough has improved markedly. History of Present Illness: The patient is a 76 year old white female (trevor Cole), with a significant past medical history of diastolic CHF, PAF (on Coumadin), presenting to the Emergency Department with shortness of breath and cough for one week. The patients son reports that the patient was seen at her PCPs office on Friday for shortness of breath and cough when she was diagnosed with bronchitis and was prescribed antibiotics. The patient admits she has taken 3 days of antibiotics, though she has not taken any of the prescription today. The patients son reports that the patient has shortness of breath exacerbated by walking normally, though her shortness of breath has been worse over the past week. The patients son admits that the patient has orthopnea, and sleeps in a specially reclined chair, though she has not been able to sleep comfortably this past week. The patient admits that the cough is sometimes productive, producing phelgm. The patient denies any chest pain. The patient is compliant with her medications. The patient denies palpitations, chest pain, and diaphoresis. Patient denies fever, or chills. Patient denies nausea, vomiting, and diarrhea. Patient denies back pain, or neck pain. PCP: Dr. Jennings [phone] - Current Medication List Current Medications: Active Medications Acetaminophen (Tylenol -) 650 mg PO Q4H PRN PRN Reason: FEVER OR PAIN Last Admin: 11/12/16 22:10 Dose: 650 mg Albuterol Sulfate (Ventolin 0.083% Nebulizer Soln -) 1 amp NEB Q4H PRN PRN Reason: SHORT OF BREATH/WHEEZING Last Admin: 11/12/16 10:29 Dose: 1 amp Albuterol Sulfate (Ventolin 0.083% Nebulizer Soln -) 1 amp NEB QIDR [facility] Last Admin: 11/14/16 11:13 Dose: 1 amp Budesonide/Formoterol Fumarate (Symbicort 160/4.5mcg -) 2 puff IH BID [facility] Last Admin: 11/14/16 10:52 Dose: 2 puff Diltiazem HCl (Cardizem Cd -) 120 mg PO BID [facility] Last Admin: 11/14/16 10:51 Dose: 120 mg Furosemide (Lasix -) 20 mg PO BID@0600,1400 [facility] Last Admin: 11/14/16 06:01 Dose: 20 mg Guaifenesin (Mucinex -) 600 mg PO BID [facility] Last Admin: 11/14/16 10:51 Dose: 600 mg Isosorbide Mononitrate (Imdur -) 30 mg PO DAILY [facility] Last Admin: 11/14/16 10:51 Dose: 30 mg Lactulose (Cephulac (Oral Use)) 20 gm PO DAILY PRN PRN Reason: CONSTIPATION Last Admin: 11/13/16 21:09 Dose: 20 gm Lisinopril (Prinivil) 20 mg PO BID [facility] Last Admin: 11/14/16 10:51 Dose: 20 mg Potassium Chloride (K-Dur -) 20 meq PO DAILY [facility] Last Admin: 11/14/16 10:51 Dose: 20 meq Prednisone (Deltasone -) 20 mg PO BID [facility] Last Admin: 11/14/16 10:51 Dose: 20 mg Tiotropium [place] (Spiriva -) 1 puff IH DAILY [facility] Last Admin: 11/14/16 12:52 Dose: 1 puff - Objective Vital Signs: Vital Signs Temperature 97.8 F 11/14/16 10:00 Pulse Rate 95 H 11/14/16 10:00 Respiratory Rate 20 11/14/16 10:00 Blood Pressure 112/74 11/14/16 10:00 O2 Sat by Pulse Oximetry (%) 98 11/13/16 21:00 Labs: CBC, BMP 11/13/16 06:18 11/13/16 06:18 INR, PTT INR 2.95 (0.82-1.09) H 11/14/16 06:30 Problem List - Problems (1) Acute asthmatic bronchitis Code(s): J45.909 - UNSPECIFIED ASTHMA, UNCOMPLICATED (2) Acute on chronic diastolic (congestive) heart failure Code(s): I50.33 - ACUTE ON CHRONIC DIASTOLIC (CONGESTIVE) HEART FAILURE (3) Anemia Code(s): D64.9 - ANEMIA, UNSPECIFIED Qualifiers: Anemia type: unspecified type Qualified Code(s): D64.9 - Anemia, unspecified (4) Atrial fibrillation Code(s): I48.91 - UNSPECIFIED ATRIAL FIBRILLATION Qualifiers: Atrial fibrillation type: chronic Qualified Code(s): I48.2 - Chronic atrial fibrillation (5) Shortness of breath Code(s): R06.02 - SHORTNESS OF BREATH (6) Hyperlipidemia Code(s): E78.5 - HYPERLIPIDEMIA, UNSPECIFIED (7) Hypertension Code(s): I10 - ESSENTIAL (PRIMARY) HYPERTENSION Qualifiers: Hypertension type: essential hypertension Qualified Code(s): I10 - Essential (primary) hypertension (8) Venous insufficiency Code(s): I87.2 - VENOUS INSUFFICIENCY (CHRONIC) (PERIPHERAL) (9) Stasis ulcer of left lower extremity Code(s): I83.029 - VARICOSE VEINS OF LEFT LOWER EXTREMITY W ULCER OF UNSP SITE
[2016-11-14 15:20] VITALS: BP 121/62; PULSE 98; TEMP 98
[2016-11-14] MEDS: ACETAMINOPHEN 325 MG TABLET (FP) PO PRN (15:30)
[2016-11-14] MEDS ORDERED: WARFARIN NA 3 MG TABLET PO ONE (15:33)
--- NOTE | 2016-11-14 15:54 | DS ---
Physical Examination Vital Signs: Vital Signs Temperature 98.0 F 11/14/16 14:18 Pulse Rate 98 H 11/14/16 14:18 Respiratory Rate 20 11/14/16 14:18 Blood Pressure 121/62 11/14/16 14:18 O2 Sat by Pulse Oximetry (%) 98 11/13/16 21:00 Findings/Remarks: Patient examined today. Feels much better with less cough and much less wheezing. Constitutional: Yes: Well Nourished, No Distress, Calm Eyes: Yes: WNL, Conjunctiva Clear, EOM Intact HENT: Yes: WNL Neck: Yes: Supple Cardiovascular: Yes: Pulse Irregular, S2 Respiratory: Yes: Regular, Other (occasional wheeze) Gastrointestinal: Yes: Normal Bowel Sounds, Soft Renal/: Yes: WNL Musculoskeletal: Yes: Joint Stiffness Extremities: Yes: WNL Edema: Yes Edema: LLE: Trace, RLE: Trace Peripheral Pulses WNL: Yes Integumentary: Yes: WNL Neurological: Yes: Alert, Oriented ...Motor Strength: WNL Psychiatric: Yes: Alert, Oriented Labs: CBC, BMP 11/13/16 06:18 11/13/16 06:18 Discharge Summary Reason For Visit: SOB Current Active Problems Acute asthmatic bronchitis (Acute) Shortness of breath (Acute) Valvular heart disease (Acute) Pulmonary hypertension (Acute) Atrial fibrillation (Acute) Stasis ulcer of left lower extremity (Acute) Procedures: Principal: CT scan chest Hospital Course: Known case of severe MR with CHF presented with acute bronchitis and was treated with IV antibiotics and inhaled steroids , IV steroids and bronchodilators. All cultures were negative and after a week IV antibiotics were d/c and was maintained on IV steroids and inhalation treatement. She continued to wheeze and with HANSEN . On the day of discharge she felt much better and will be discharged on PO steroids and will be followed in my office. She also has AFib and was maintained on Warfarin. Condition: Stable - Instructions Diet, Activity, Other Instructions: Low salt diet and activity as tolerated. Referrals: Benson Jennings MD [Primary Care Provider] - - Home Medications Comprehensive Discharge Medication List: Ambulatory Orders Diltiazem HCl [Diltiazem 24Hr ER] 120 mg PO BID 10/25/13 Lisinopril [Prinivil] 40 mg PO DAILY 07/01/15 Furosemide [Lasix -] 40 mg PO BID 07/23/15 Potassium Chloride [Klor-Con M10] 10 meq PO DAILY 08/31/16 Ferrous Sulfate [Feosol] 325 mg PO BID 09/01/16 Folic Acid 800 mg PO DAILY 09/01/16 Acetaminophen [Tylenol .Regular Strength -] 650 mg PO Q4H PRN #0 tablet Atorvastatin Ca [Lipitor] 10 mg PO HS tablet 09/02/16 Isosorbide Mononitrate [Imdur -] 30 mg PO DAILY 09/02/16 Metoprolol Succinate [Toprol XL -] 25 mg PO DAILY 09/02/16 Warfarin Na [Coumadin -] 2.5 mg PO SuTh@1800 tablet 09/02/16 Warfarin Na [Coumadin -] 5 mg PO MoTuWeFrSa@1800 tablet 09/02/16 Albuterol Sulfate [Proair Respiclick] 90 mcg IH QID 11/02/16 Lactulose (Oral Use) [Cephulac -] 20 gm PO DAILY PRN 11/02/16 Levofloxacin [Levaquin -] 500 mg PO DAILY 11/02/16
== END 2016-11-14 18:25 | disposition home or self-care (01) | DRG 202 ==
LOC: SUPCPDRO 09:04 → JER 09:04 → JERBED 11:06 → J4W 16:31 → J5S 11-09 11:33
PROVIDERS: ADMIT Internal Medicine Hematology & Oncology; ATTEND Internal Medicine Hematology & Oncology
DX: J45.901 Unspecified asthma with (acute) exacerbation (principal); I50.33 Acute on chronic diastolic (congestive) heart failure; J98.11 Atelectasis; J20.9 Acute bronchitis, unspecified; I48.0 Paroxysmal atrial fibrillation; Z79.01 Long term (current) use of anticoagulants; K21.9 Gastro-esophageal reflux disease without esophagitis; D64.9 Anemia, unspecified; E78.00 Pure hypercholesterolemia, unspecified; I34.0 Nonrheumatic mitral (valve) insufficiency; M47.9 Spondylosis, unspecified; I87.2 Venous insufficiency (chronic) (peripheral); E66.9 Obesity, unspecified; Z68.35 Body mass index [BMI] 35.0-35.9, adult; Z71.3 Dietary counseling and surveillance; I27.2 Other secondary pulmonary hypertension; I11.0 Hypertensive heart disease with heart failure; I25.10 Atherosclerotic heart disease of native coronary artery without angina pectoris; Z98.61 Coronary angioplasty status; I83.029 Varicose veins of left lower extremity with ulcer of unspecified site
CPT/HCPCS: 36415; 71020-TC; 71250-TC; 80053; 82550; 83880; 84484; 85025; 85610; 86140; 86157; 87040; 90670; 93005; 93010; 94640; 99284-25

== ENCOUNTER 2017-02-11 19:17 | Inpatient (IN) | payer OTHER, MEDICARE ==
--- NOTE | 2017-02-11 21:54 | PDOC ---
History of Present Illness - General Chief Complaint: Shortness of Breath Stated Complaint: SOB Time Seen by Provider: 02/11/17 21:12 History Source: Family (Son) Exam Limitations: No Limitations - History of Present Illness Initial Comments: 02/11/17 21:49 76yo Female patient w/ PmHx: CHF, GERD, Anemia, CAD, HTN, HLD, Venous stasis ulcers, recent hemorrhagic stroke 7 weeks ago, discharged from [facility] yesterday presented to ED with son c/o trouble breathing. Son states patient usually has episodes like this, that last a little while and resolve. He states he called her PCP and was instructed to bring her to ED for evaluation. Patient denies CP, Abd pain, n/v/d, fever, dysuria, hematuria, back pain, or any other complaints at this time. PCP- Dr. Jennings Timing/Duration: reports: just prior to arrival Severity: reports: mild Episode Description: See HPI Possible Cause: Yes: occasional episodes Modifying Factors: improves with: oxygen. worse with: activity, albuterol inhaler, albuterol nebulizer, antibiotics, coughing, lying down, rest, other Associated Symptoms: denies: denies symptoms, chest pain/soreness, cough, dizziness, earache, facial pain, fever/chills, headache, lightheadedness, muscle aches, nasal congestion, nasal drainage, shortness of breath, sinus infection, sore throat, wheezing, other Past History - Travel Traveled outside of the country in the last 30 days: No Close contact w/someone who was outside of country & ill: No - Past Medical History Allergies/Adverse Reactions: Allergies Allergy/AdvReac Type Severity Reaction Status Date / Time ibuprofen [From Advil] Allergy Unknown Verified 02/11/17 19:26 Home Medications: Ambulatory Orders Diltiazem HCl [Diltiazem 24Hr ER] 120 mg PO BID 10/25/13 Lisinopril [Prinivil] 40 mg PO DAILY 07/01/15 Furosemide [Lasix -] 40 mg PO BID 07/23/15 Potassium Chloride [Klor-Con M10] 10 meq PO DAILY 08/31/16 Ferrous Sulfate [Feosol] 325 mg PO BID 09/01/16 Folic Acid 800 mg PO DAILY 09/01/16 Acetaminophen [Tylenol .Regular Strength -] 650 mg PO Q4H PRN #0 tablet 03/13/ 17 Atorvastatin Ca [Lipitor] 10 mg PO HS tablet 09/02/16 Isosorbide Mononitrate [Imdur -] 30 mg PO DAILY 09/02/16 Metoprolol Succinate [Toprol XL -] 25 mg PO DAILY 09/02/16 Warfarin Na [Coumadin -] 2.5 mg PO SuTh@1800 tablet 09/02/16 Warfarin Na [Coumadin -] 5 mg PO MoTuWeFrSa@1800 tablet 09/02/16 Albuterol Sulfate [Proair Respiclick] 90 mcg IH QID 11/02/16 Lactulose (Oral Use) [Cephulac -] 20 gm PO DAILY PRN 11/02/16 Levofloxacin [Levaquin -] 500 mg PO DAILY 11/02/16 Anemia: Yes Cardiac Disorders: Yes (A-FIB, CAD) CHF: Yes GI Disorders: Yes (gerd, hernia s/p repair) HTN: Yes Hypercholesterolemia: Yes - Surgical History Abdominal Surgery: Yes (HERNIA) Cholecystectomy: Yes - Psycho/Social/Smoking Cessation Hx Anxiety: No Suicidal Ideation: No Smoking History: Never smoked Have you smoked in the past 12 months: No Information on smoking cessation initiated: No Hx Alcohol Use: No Drug/Substance Use Hx: No Substance Use Type: None Hx Substance Use Treatment: No Respiratory Specific PMHX - Complaint Specific PMHX Angina: No Bronchitis: No Pneumonia: No Pulmonary Embolus: No TB (Tuberculosis): No Review of Systems - Review of Systems Able to Perform ROS?: Yes Is the patient limited Greek proficient: No Constitutional: No: Chills, Fever Respiratory: Yes: Shortness of Breath. No: Cough, Stridor, Wheezing Cardiac (ROS): No: Chest Pain, Lightheadedness, Palpitations, Syncope, Chest Tightness ABD/GI: No: Constipated, Diarrhea, Nausea, Vomiting : No: Burning, Dysuria, Flank Pain, Hematuria Musculoskeletal: No: Back Pain Integumentary: No: Bruising, Erythema, Rash Neurological: No: Headache, Seizure, Tingling, Ataxia All Other Systems: Reviewed and Negative *Physical Exam - Vital Signs Last Vital Signs Temp Pulse Resp BP Pulse Ox 97.3 F L 80 20 169/115 89 L 02/11/17 19:26 02/11/17 19:26 02/11/17 19:26 02/11/17 19:26 02/11/17 19:26 - Physical Exam General Appearance: Yes: Nourished, Appropriately Dressed. No: Apparent Distress, Mild Distress, Moderate Distress, Severe Distress Respiratory/Chest: positive: Lungs Clear, Normal Breath Sounds. negative: Chest Tender, Respiratory Distress, Accessory Muscle Use, Labored Respiration, Rapid RR Cardiovascular: positive: Irregularly Irregular Musculoskeletal: positive: Normal Inspection. negative: CVA Tenderness Extremity: positive: Normal Capillary Refill, Normal Inspection, Normal Range of Motion, Pedal Edema, Swelling. negative: Calf Tenderness, Erythema, Inflammation Integumentary: positive: Normal Color, Dry, Warm, Swelling (Lower extremities) Neurologic: positive: Fully Oriented, Alert, Normal Mood/Affect, Normal Response ED Treatment Course - LABORATORY CBC & Chemistry Diagram: 02/11/17 22:10 02/11/17 22:10 - RADIOLOGY Radiology Studies Ordered: Category Date Time Status CHEST PA & LAT [RAD] Stat Radiology 02/11/17 21:42 Ordered Medical Decision Making - Medical Decision Making 02/12/17 00:[address] Jennings who would like patient admitted to telemetry, give IV lasix. Check BNP and chest x-ray. *DC/Admit/Observation/Transfer Diagnosis at time of Disposition: Shortness of breath Congestive heart failure (CHF) Qualifiers: Congestive heart failure type: unspecified congestive heart failure type Congestive heart failure chronicity: acute on chronic Qualified Code(s): I50.9 - Heart failure, unspecified Atrial fibrillation Qualifiers: Atrial fibrillation type: chronic Qualified Code(s): I48.2 - Chronic atrial fibrillation - Discharge Dispostion Condition at time of disposition: Fair Admit: Yes
[2017-02-11 22:36] LABS: BASOPHIL 0.8 % (0-2.0); EOSINOPHIL 2.1 % (0-4.5); MCH 32.1 pg (25.7-33.7); MCHC 33.3 g/dl (32.0-36.0); MEAN CELL VOLUME 96.2 fl (80-96); MEAN PLT VOLUME 10.2 fl (7.5-11.1); NEUTROPHILS 66.9 % (42.8-82.8); RDW 17.7 % (11.6-15.6); WHITE BLOOD COUNT 5.2 K/mm3 (4.0-10.0)
[2017-02-11 23:56] LABS: URINE APPEARANCE SLCLOUDY; URINE BILIRUBIN NEGATIVE (NEGATIVE); URINE BLOOD 2+ (NEGATIVE); URINE COLOR YELLOW; URINE GLUCOSE (UA) NEGATIVE (NEGATIVE); URINE KETONE NEGATIVE (NEGATIVE); URINE LEUK ESTERASE NEGATIVE (NEGATIVE); URINE NITRITE NEGATIVE (NEGATIVE)
[2017-02-12] MEDS ORDERED: FUROSEMIDE 40 MG/4 ML INJECTABLE VIAL IVPB ONE (00:02)
[2017-02-12 00:10] LABS: URINE PROTEIN 2+ (NEGATIVE)
[2017-02-12 00:11] LABS: CALCIUM OXALATE CRYSTALS RARE /hpf (NONE SEEN); URINE BACTERIA FEW /hpf (NONE SEEN); URINE MUCUS RARE; URINE RBC 6 /hpf (0-3); URINE WBC 3 /hpf (3-5)
[2017-02-12] MEDS ORDERED: FUROSEMIDE 40 MG/4 ML INJECTABLE VIAL ONE (00:15)
[2017-02-12 00:56] LABS: EOSINOPHIL 2.7 % (0-4.5); MCH 30.7 pg (25.7-33.7); NEUTROPHILS 59.7 % (42.8-82.8); PLATELET COUNT 159 K/MM3 (134-434); RDW 17.6 % (11.6-15.6); WHITE BLOOD COUNT 4.4 K/mm3 (4.0-10.0)
[2017-02-12 08:35] LABS: ALBUMIN 3.9 g/dl (3.4-5.0); ALK PHOS 46 U/L (45-117); ANION GAP 9 (8-16); BILIRUBIN,TOTAL 0.8 mg/dL (0.2-1.0); CALCIUM 8.6 mg/dL (8.5-10.1); CO2 29 mmol/L (21-32); CPK 428 IU/L (26-192); CREATININE 1.2 mg/dL (0.55-1.02); GLUCOSE,RANDOM 81 mg/dL (74-106); SGOT/AST 15 U/L (15-37); SGPT/ALT 27 U/L (12-78); TOT PROT 7.1 g/dl (6.4-8.2); TROPONIN I < 0.02 ng/ml (0.00-0.05)
--- NOTE | 2017-02-12 09:14 | CON.CARD ---
Consult Consult Specialty:: Cardiology - History of Present Illness Chief Complaint: sob History of Present Illness: 76yo Female patient w/ PmHx: CHF, GERD, Anemia, CAD, HTN, HLD, Venous stasis ulcers, recent hemorrhagic stroke 7 weeks ago, discharged from [facility] yesterday presented to ED with son c/o trouble breathing. Son states patient usually has episodes like this, that last a little while and resolve. He states he called her PCP and was instructed to bring her to ED for evaluation. Patient denies CP, Abd pain, n/v/d, fever, dysuria, hematuria, back pain, or any other complaints at this time. PMH coronary angiogram 06/2015: luminal irregularities of LAD, LCx, RCA Rt lower extremity angiogram 06/2015: Rt common femoral, right superficial femoral, and right popliteal arteries have 30% stenoses. Medical history: Moderately severe mitral regurgitation HTN obesity Atrial fibrillation hyperlipidemia GERD iron-deficiency anemia - History Source History Provided By: Patient, Medical Record - Past Medical History Cardio/Vascular: Yes: AFIB, HTN, Hyperlipdemia, Mitral Insufficiency, Pulmonary Hypertension Gastrointestinal: Yes: GERD, Hiatal Hernia, Other (abdominal pain mainly in upper abd related to intestinal adhesions) Hepatobiliary: Yes: Cholecystitis, Other (s/p cholecystectomy) Musculoskeletal: Yes: Chronic low back pain, Osteoarthritis ENT: Yes: Allergic Rhinitis Endocrine: Yes: Hypothyroidism - Past Surgical History Past Surgical History: Yes: None, Cholecystectomy, Colonoscopy, Hernia Repair - Alcohol/Substance Use Hx Alcohol Use: No History of Substance Use: reports: None - Smoking History Smoking history: Never smoked Have you smoked in the past 12 months: No - Social History Usual Living Arrangement: With Spouse ADL: Independent History of Recent Travel: No Home Medications - Allergies Allergies/Adverse Reactions: Allergies Allergy/AdvReac Type Severity Reaction Status Date / Time ibuprofen [From Advil] Allergy Unknown Verified 02/11/17 19:26 - Home Medications Home Medications: Ambulatory Orders Diltiazem HCl [Diltiazem 24Hr ER] 120 mg PO BID 10/25/13 Lisinopril [Prinivil] 40 mg PO DAILY 07/01/15 Furosemide [Lasix -] 40 mg PO BID 07/23/15 Potassium Chloride [Klor-Con M10] 10 meq PO DAILY 08/31/16 Ferrous Sulfate [Feosol] 325 mg PO BID 09/01/16 Folic Acid 800 mg PO DAILY 09/01/16 Acetaminophen [Tylenol .Regular Strength -] 650 mg PO Q4H PRN #0 tablet Atorvastatin Ca [Lipitor] 10 mg PO HS tablet 09/02/16 Isosorbide Mononitrate [Imdur -] 30 mg PO DAILY 09/02/16 Metoprolol Succinate [Toprol XL -] 25 mg PO DAILY 09/02/16 Warfarin Na [Coumadin -] 2.5 mg PO SuTh@1800 tablet 09/02/16 Warfarin Na [Coumadin -] 5 mg PO MoTuWeFrSa@1800 tablet 09/02/16 Albuterol Sulfate [Proair Respiclick] 90 mcg IH QID 11/02/16 Lactulose (Oral Use) [Cephulac -] 20 gm PO DAILY PRN 11/02/16 Levofloxacin [Levaquin -] 500 mg PO DAILY 11/02/16 Family Disease History - Family Disease History Family Disease History: Heart Disease: Father, Mother Review of Systems - Review of Systems Constitutional: reports: No Symptoms Eyes: reports: No Symptoms HENT: reports: No Symptoms Neck: reports: No Symptoms Cardiovascular: reports: No Symptoms Respiratory: reports: SOB Gastrointestinal: reports: No Symptoms Genitourinary: reports: No Symptoms Breasts: reports: No Symptoms Reported Musculoskeletal: reports: No Symptoms Integumentary: reports: No Symptoms Neurological: reports: No Symptoms Endocrine: reports: No Symptoms Hematology/Lymphatic: reports: No Symptoms Psychiatric: reports: No Symptoms Vital Signs: Vital Signs Temperature 97.3 F L 02/11/17 19:26 Pulse Rate 85 02/11/17 22:59 Respiratory Rate 20 02/11/17 19:26 Blood Pressure 169/115 02/11/17 19:26 O2 Sat by Pulse Oximetry (%) 99 02/11/17 22:59 Constitutional: Yes: Well Nourished, No Distress, Calm Eyes: Yes: WNL, Conjunctiva Clear, EOM Intact HENT: Yes: WNL, Atraumatic, Normocephalic Neck: Yes: WNL, Supple, Trachea Midline Respiratory: Yes: Diminished Gastrointestinal: Yes: WNL, Normal Bowel Sounds Renal/: Yes: WNL Cardiovascular: Yes: Pulse Irregular Musculoskeletal: Yes: WNL Extremities: Yes: WNL Integumentary: Yes: WNL Neurological: Yes: WNL, Alert, Oriented ...Motor Strength: WNL Psychiatric: Yes: WNL, Alert, Oriented - Other Data Labs, Other Data: CBC, BMP 02/12/17 00:40 INR, PTT INR Cancelled 02/11/17 22:10 Troponin, BNP 02/12/17 02/12/17 00:40 00:40 Troponin I < 0.02 B-Natriuretic Peptide 8772.14 H Troponin, BNP 02/12/17 02/12/17 00:40 00:40 Troponin I < 0.02 B-Natriuretic Peptide 8772.14 H Imaging - Results Chest X-ray: Image Reviewed (cm no i/e) EKG: Image Reviewed (af rep abn) Problem List - Problems (1) Shortness of breath Code(s): R06.02 - SHORTNESS OF BREATH (2) Atrial fibrillation Code(s): I48.91 - UNSPECIFIED ATRIAL FIBRILLATION Qualifiers: Atrial fibrillation type: chronic Qualified Code(s): I48.2 - Chronic atrial fibrillation (3) Congestive heart failure (CHF) Code(s): I50.9 - HEART FAILURE, UNSPECIFIED Qualifiers: Congestive heart failure type: unspecified congestive heart failure type Congestive heart failure chronicity: acute on chronic Qualified Code(s ): I50.9 - Heart failure, unspecified (4) Acute asthmatic bronchitis Code(s): J45.909 - UNSPECIFIED ASTHMA, UNCOMPLICATED (5) Valvular heart disease Code(s): I38 - ENDOCARDITIS, VALVE UNSPECIFIED (6) Acute on chronic diastolic (congestive) heart failure Code(s): I50.33 - ACUTE ON CHRONIC DIASTOLIC (CONGESTIVE) HEART FAILURE (7) Pulmonary hypertension Code(s): I27.2 - OTHER SECONDARY PULMONARY HYPERTENSION (8) Ankle pain, right Code(s): M25.571 - PAIN IN RIGHT ANKLE AND JOINTS OF RIGHT FOOT Qualifiers: Chronicity: unspecified Qualified Code(s): M25.571 - Pain in right ankle and joints of right foot (9) Anticoagulated on Coumadin Code(s): Z51.81 - ENCOUNTER FOR THERAPEUTIC DRUG LEVEL MONITORING Z79.01 - NURSING HOME (CURRENT) USE OF ANTICOAGULANTS (10) Stasis ulcer of left lower extremity Code(s): I83.029 - VARICOSE VEINS OF LEFT LOWER EXTREMITY W ULCER OF UNSP SITE (11) Anemia Code(s): D64.9 - ANEMIA, UNSPECIFIED Qualifiers: Anemia type: unspecified type Qualified Code(s): D64.9 - Anemia, unspecified (12) Atrial fib/flutter, transient Code(s): DWQ0186 - (13) Bullae Code(s): R23.8 - OTHER SKIN CHANGES (14) CHF (NYHA class II, ACC/AHA stage C) Code(s): I50.9 - HEART FAILURE, UNSPECIFIED (15) Hematoma following percutaneous transluminal coronary angioplasty Code(s): I97.610 - POSTPROC HEMOR OF A CIRC SYS ORG FOLLOWING A CARDIAC CATH (16) Hyperlipidemia Code(s): E78.5 - HYPERLIPIDEMIA, UNSPECIFIED (17) Hypertension Code(s): I10 - ESSENTIAL (PRIMARY) HYPERTENSION Qualifiers: Hypertension type: essential hypertension Qualified Code(s): I10 - Essential (primary) hypertension (18) Obesity (BMI 30-39.9) Code(s): E66.9 - OBESITY, UNSPECIFIED (19) Pre-syncope Code(s): R55 - SYNCOPE AND COLLAPSE (20) Stasis ulcer of right lower extremity Code(s): I83.019 - VARICOSE VEINS OF RIGHT LOWER EXTREMITY W ULCER OF UNSP SITE (21) Venous insufficiency Code(s): I87.2 - VENOUS INSUFFICIENCY (CHRONIC) (PERIPHERAL) Assessment/Plan af chf copd htn hld non obstructive cad Plan telemetry iv lasix echo pulm eval cont AC
[2017-02-12 09:22] LABS: INR 2.89 (0.82-1.09); PROTHROMBIN TIME (PATIENT) 32.5 SEC (9.98-11.88)
[2017-02-12 09:25] LABS: ALBUMIN 3.4 g/dl (3.4-5.0); ALK PHOS 56 U/L (45-117); ANION GAP 7 (8-16); BILIRUBIN,TOTAL 1.1 mg/dL (0.2-1.0); CALCIUM 8.7 mg/dL (8.5-10.1); CO2 32 mmol/L (21-32); CREATININE 0.8 mg/dL (0.55-1.02); GLUCOSE,RANDOM 94 mg/dL (74-106); MAGNESIUM 1.8 mg/dL (1.8-2.4); SGOT/AST 14 U/L (15-37); SGPT/ALT 23 U/L (12-78); TOT PROT 5.7 g/dl (6.4-8.2)
[2017-02-12] MEDS: FUROSEMIDE 40 MG/4 ML INJECTABLE VIAL IVPB SCH ×2 (09:43→22:14)
--- NOTE | 2017-02-12 10:06 | EKG ---
Test Reason : Blood Pressure : / mmHG Vent. Rate : 080 BPM Atrial Rate : 468 BPM P-R Int : 000 ms QRS Dur : 082 ms QT Int : 380 ms P-R-T Axes : 000 090 097 degrees QTc Int : 438 ms POOR DATA QUALITY, INTERPRETATION MAY BE ADVERSELY AFFECTED ATRIAL FIBRILLATION RIGHTWARD AXIS SEPTAL INFARCT , AGE UNDETERMINED ABNORMAL ECG WHEN COMPARED WITH ECG OF 02-NOV-2016 10:12, SEPTAL INFARCT IS NOW PRESENT Confirmed by KIRK WILLIAM, BRYON ([id number]) on 02/12/2017 10:05:41 AM Referred By: Confirmed By:BRYON BRADLEY MD
[2017-02-12 10:27] VITALS: BMI 38.5
[2017-02-12] MEDS: METOPROLOL SUCCINATE 50 MG TAB.SR.24H (FP) PO SCH ×2 (11:06→22:14)
[2017-02-12] MEDS: RANITIDINE HCL 150 MG TABLET (FP) PO SCH ×2 (11:06→22:14)
[2017-02-12] MEDS: LACTULOSE 20 GM/30 ML UDC (FOR ORAL USE ONLY) PO SCH (11:06)
[2017-02-12] MEDS: POTASSIUM CHLORIDE TABS 20 MEQ TABLET.ER (FP) PO SCH (11:06)
[2017-02-12] MEDS: FOLIC ACID 1 MG TABLET (FP) PO SCH (11:06)
[2017-02-12] MEDS: ISOSORBIDE MONONITRATE 30 MG TAB.SR.24H (FP) PO SCH (11:06)
[2017-02-12] MEDS: ACETAMINOPHEN 325 MG TABLET (FP) PO PRN (17:57)
--- NOTE | 2017-02-12 20:54 | PDOC ---
*Physical Exam - Vital Signs Last Vital Signs Temp Pulse Resp BP Pulse Ox 97.6 F 82 19 136/67 97 02/12/17 18:00 02/12/17 18:00 02/12/17 18:00 02/12/17 18:00 02/12/17 08:00 ED Treatment Course - LABORATORY CBC & Chemistry Diagram: 02/12/17 00:40 02/12/17 01:20 - ADDITIONAL ORDERS Additional order review: Laboratory Results 02/11/17 23:11 Urine Color Yellow Urine Appearance Slcloudy Urine pH 5.0 D Ur Specific [place] >= 1.030 H Urine Protein 2+ H Urine Glucose (UA) Negative Urine Ketones Negative Urine Blood 2+ H Urine Nitrite Negative Urine Bilirubin Negative Urine Urobilinogen 2.0 H Ur Leukocyte Esterase Negative Urine RBC 6 Urine WBC 3 Ur Epithelial Cells Rare Calcium Oxalate Crystal Rare Urine Bacteria Few Urine Mucus Rare 02/11/17 22:10 RBC 3.78 D MCV 96.2 H MCHC 33.3 RDW 17.7 H D MPV 10.2 D Neutrophils % 66.9 D Lymphocytes % 20.4 D Monocytes % 9.8 D Eosinophils % 2.1 D Basophils % 0.8 D - Medications Given in the ED: ED Medications Discontinued Medications Generic Name Dose Route Start Last Admin Trade Name Freq PRN Reason Stop Dose Admin Furosemide 40 mg 02/12/17 00:02 02/12/17 00:45 Lasix Injection - IVPB 02/12/17 00:03 40 mg ONCE ONE Administration Medical Decision Making - Medical Decision Making 02/12/17 20:53 agree with care from RAJESH Hicks *DC/Admit/Observation/Transfer Diagnosis at time of Disposition: Shortness of breath Congestive heart failure (CHF) Qualifiers: Congestive heart failure type: unspecified congestive heart failure type Congestive heart failure chronicity: acute on chronic Qualified Code(s): I50.9 - Heart failure, unspecified Atrial fibrillation Qualifiers: Atrial fibrillation type: chronic Qualified Code(s): I48.2 - Chronic atrial fibrillation - Discharge Dispostion Condition at time of disposition: Fair
[2017-02-12] MEDS: ATORVASTATIN CA 10 MG TABLET (FP) PO SCH (22:14)
--- NOTE | 2017-02-13 01:03 | HP ---
Admitting History and Physical - Primary Care Physician PCP: Benson Jennings - Admission Chief Complaint: Shrtness of breath History of Present Illness: NOTE for 02/12/17 76 y/o known case of Afib and severe MR with CHF is admitted with severe SOB. A month ago was admitted to [facility] with intracerebral bleed and spent a month in SNF for rehab .Was home for one day suddenly became very SOB and was brought to ER. She is known to have severe MR and was advised to have mitral vlve replacement and refused, since then CHF has progressively become worse and spends most of the time sitting in a chair. History Source: Patient Limitations to Obtaining History: No Limitations - Past Medical History Cardiovascular: Yes: AFIB, HTN, Hyperlipdemia, Mitral Insufficiency, Pulmonary Hypertension Gastrointestinal: Yes: GERD, Hiatal Hernia, Other (abdominal pain mainly in upper abd related to intestinal adhesions) Hepatobiliary: Yes: Other (s/p cholecystectomy) ...: No Musculoskeletal: Yes: Chronic low back pain, Osteoarthritis ENT: Yes: Allergic Rhinitis - Past Surgical History Past Surgical History: Yes: Cholecystectomy, Colonoscopy, Hernia Repair Additional Past Surgical History: During incisional hernia repair had to have resection of small bowel - Smoking History Smoking history: Never smoked Have you smoked in the past 12 months: No - Alcohol/Substance Use Hx Alcohol Use: No History of Substance Use: reports: None - Social History Usual Living Arrangement: Yes: Alone ADL: Independent History of Recent Travel: No Home Medications - Allergies Allergies/Adverse Reactions: Allergies Allergy/AdvReac Type Severity Reaction Status Date / Time ibuprofen [From Advil] Allergy Unknown Verified 02/11/17 19:26 - Home Medications Home Medications: Ambulatory Orders Diltiazem HCl [Diltiazem 24Hr ER] 120 mg PO BID 10/25/13 Lisinopril [Prinivil] 40 mg PO DAILY 07/01/15 Furosemide [Lasix -] 40 mg PO BID 07/23/15 Potassium Chloride [Klor-Con M10] 10 meq PO DAILY 08/31/16 Ferrous Sulfate [Feosol] 325 mg PO BID 09/01/16 Folic Acid 800 mg PO DAILY 09/01/16 Acetaminophen [Tylenol .Regular Strength -] 650 mg PO Q4H PRN #0 tablet Atorvastatin Ca [Lipitor] 10 mg PO HS tablet 09/02/16 Isosorbide Mononitrate [Imdur -] 30 mg PO DAILY 09/02/16 Metoprolol Succinate [Toprol XL -] 25 mg PO DAILY 09/02/16 Warfarin Na [Coumadin -] 2.5 mg PO SuTh@1800 tablet 09/02/16 Warfarin Na [Coumadin -] 5 mg PO MoTuWeFrSa@1800 tablet 09/02/16 Albuterol Sulfate [Proair Respiclick] 90 mcg IH QID 11/02/16 Lactulose (Oral Use) [Cephulac -] 20 gm PO DAILY PRN 11/02/16 Levofloxacin [Levaquin -] 500 mg PO DAILY 11/02/16 Family Disease History - Family Disease History Family Disease History: Heart Disease: Father, Mother Review of Systems - Review of Systems Constitutional: reports: Weakness Eyes: reports: No Symptoms HENT: reports: No Symptoms Neck: reports: No Symptoms Cardiovascular: reports: Palpitations, Shortness of Breath Respiratory: reports: Orthopnea, SOB Gastrointestinal: reports: Abdominal Pain Genitourinary: reports: No Symptoms Breasts: reports: No Symptoms Reported Musculoskeletal: reports: Back Pain, Joint Pain Integumentary: reports: Blister Neurological: reports: No Symptoms Endocrine: reports: No Symptoms Physical Examination Vital Signs: Vital Signs Temperature 97.6 F 02/12/17 20:15 Pulse Rate 57 L 02/12/17 20:15 Respiratory Rate 20 02/12/17 20:15 Blood Pressure 144/75 02/12/17 20:15 O2 Sat by Pulse Oximetry (%) 97 02/12/17 08:00 Constitutional: Yes: Anxious Eyes: Yes: Conjunctiva Clear, EOM Intact HENT: Yes: WNL Neck: Yes: Supple Cardiovascular: Yes: Pulse Irregular, S2 Respiratory: Yes: Regular Gastrointestinal: Yes: Normal Bowel Sounds, Soft Renal/: Yes: WNL Musculoskeletal: Yes: Back Pain, Joint Stiffness Extremities: Yes: WNL Edema: Yes Edema: LLE: 3+, RLE: 3+ Peripheral Pulses WNL: Yes Integumentary: Yes: Other (left leg lower third there is ulceration covered with skin) Neurological: Yes: Alert, Oriented ...Motor Strength: WNL Psychiatric: Yes: Alert, Oriented Labs: CBC, BMP 02/12/17 00:40 02/12/17 01:20 Imaging - Results Chest X-ray: Report Reviewed, Image Reviewed EKG: Report Reviewed, Image Reviewed Problem List - Problems (1) Acute respiratory failure with hypoxemia Assessment/Plan: Was severely hypoxic and improved with IV Lasix and O2 Code(s): J96.01 - ACUTE RESPIRATORY FAILURE WITH HYPOXIA (2) Atrial fibrillation Assessment/Plan: VR well controlled with Metoprolol Code(s): I48.91 - UNSPECIFIED ATRIAL FIBRILLATION Qualifiers: Atrial fibrillation type: chronic Qualified Code(s): I48.2 - Chronic atrial fibrillation (3) Congestive heart failure (CHF) Code(s): I50.9 - HEART FAILURE, UNSPECIFIED Qualifiers: Congestive heart failure type: unspecified congestive heart failure type Congestive heart failure chronicity: acute on chronic Qualified Code(s ): I50.9 - Heart failure, unspecified (4) Valvular heart disease Code(s): I38 - ENDOCARDITIS, VALVE UNSPECIFIED (5) Acute on chronic diastolic (congestive) heart failure Code(s): I50.33 - ACUTE ON CHRONIC DIASTOLIC (CONGESTIVE) HEART FAILURE Assessment/Plan Was treated with IV Lasix and felt much less SOB. BNP is markedly elevated. Echocardiogram shows severe MR with dilatation of both atria and pulmonary hypertension. Continue IV Lasix.
[2017-02-13] MEDS: FOLIC ACID 1 MG TABLET (FP) PO SCH (09:24)
[2017-02-13] MEDS: METOPROLOL SUCCINATE 50 MG TAB.SR.24H (FP) PO SCH ×2 (09:24→21:51)
[2017-02-13] MEDS: FUROSEMIDE 40 MG/4 ML INJECTABLE VIAL IVPB SCH ×2 (09:24→21:51)
[2017-02-13] MEDS: LACTULOSE 20 GM/30 ML UDC (FOR ORAL USE ONLY) PO SCH (09:24)
[2017-02-13] MEDS: POTASSIUM CHLORIDE TABS 20 MEQ TABLET.ER (FP) PO SCH (09:24)
[2017-02-13] MEDS: ISOSORBIDE MONONITRATE 30 MG TAB.SR.24H (FP) PO SCH (09:24)
[2017-02-13] MEDS: RANITIDINE HCL 150 MG TABLET (FP) PO SCH ×2 (09:26→21:50)
--- NOTE | 2017-02-13 10:37 | PN ---
Progress Note, Physician History of Present Illness: 76yo Female patient w/ PmHx: CHF, GERD, Anemia, CAD, HTN, HLD, Venous stasis ulcers, recent hemorrhagic stroke 7 weeks ago, discharged from [facility] yesterday presented to ED with son c/o trouble breathing. Son states patient usually has episodes like this, that last a little while and resolve. He states he called her PCP and was instructed to bring her to ED for evaluation. Patient denies CP, Abd pain, n/v/d, fever, dysuria, hematuria, back pain, or any other complaints at this time. H coronary angiogram 06/2015: luminal irregularities of LAD, LCx, RCA Rt lower extremity angiogram 06/2015: Rt common femoral, right superficial femoral, and right popliteal arteries have 30% stenoses. Medical history: Moderately severe mitral regurgitation HTN obesity Atrial fibrillation hyperlipidemia GERD iron-deficiency anemia - Current Medication List Current Medications: Active Medications Acetaminophen (Tylenol -) 650 mg PO Q4H PRN PRN Reason: FEVER OR PAIN Last Admin: 02/12/17 17:57 Dose: 650 mg Atorvastatin Calcium (Lipitor -) 10 mg PO HS [facility] Last Admin: 02/12/17 22:14 Dose: 10 mg Folic Acid (Folic Acid -) 1 mg PO DAILY [facility] Last Admin: 02/13/17 09:24 Dose: 1 mg Furosemide (Lasix Injection -) 40 mg IVPB BID [facility] Last Admin: 02/13/17 09:24 Dose: 40 mg Isosorbide Mononitrate (Imdur -) 30 mg PO DAILY [facility] Last Admin: 02/13/17 09:24 Dose: 30 mg Lactulose (Cephulac (Oral Use)) 20 gm PO DAILY [facility] Last Admin: 02/13/17 09:24 Dose: Not Given Metoprolol Succinate (Toprol Xl -) 50 mg PO BID [facility] Last Admin: 02/13/17 09:24 Dose: 50 mg Potassium Chloride (K-Dur -) 20 meq PO DAILY [facility] Last Admin: 02/13/17 09:24 Dose: 20 meq Ranitidine HCl (Zantac -) 150 mg PO BID [facility] Last Admin: 02/13/17 09:26 Dose: 150 mg Warfarin Sodium (Coumadin -) 5 mg PO DAILY@1800 [facility] - Objective Vital Signs: Vital Signs Temperature 98.2 F 02/13/17 06:00 Pulse Rate 80 02/13/17 06:00 Respiratory Rate 20 02/13/17 06:00 Blood Pressure 139/94 02/13/17 06:00 O2 Sat by Pulse Oximetry (%) 97 02/12/17 21:00 Eyes: Yes: WNL, Conjunctiva Clear, EOM Intact HENT: Yes: WNL, Atraumatic, Normocephalic Neck: Yes: WNL, Supple, Trachea Midline Cardiovascular: Yes: WNL, Regular Rate and Rhythm, Murmur, S1, S2 Respiratory: Yes: WNL, Regular, CTA Bilaterally Gastrointestinal: Yes: WNL, Normal Bowel Sounds Genitourinary: Yes: WNL Musculoskeletal: Yes: WNL Extremities: Yes: WNL Edema: Yes Integumentary: Yes: WNL Neurological: Yes: WNL, Alert, Oriented ...Motor Strength: WNL Psychiatric: Yes: WNL Labs: CBC, BMP 02/12/17 00:40 02/12/17 01:20 INR, PTT INR 2.89 (0.82-1.09) H 02/12/17 08:15 Problem List - Problems (1) Shortness of breath Code(s): R06.02 - SHORTNESS OF BREATH (2) Atrial fibrillation Code(s): I48.91 - UNSPECIFIED ATRIAL FIBRILLATION Qualifiers: Atrial fibrillation type: chronic Qualified Code(s): I48.2 - Chronic atrial fibrillation (3) Congestive heart failure (CHF) Code(s): I50.9 - HEART FAILURE, UNSPECIFIED Qualifiers: Congestive heart failure type: unspecified congestive heart failure type Congestive heart failure chronicity: acute on chronic Qualified Code(s ): I50.9 - Heart failure, unspecified (4) Acute asthmatic bronchitis Code(s): J45.909 - UNSPECIFIED ASTHMA, UNCOMPLICATED (5) Valvular heart disease Code(s): I38 - ENDOCARDITIS, VALVE UNSPECIFIED (6) Acute on chronic diastolic (congestive) heart failure Code(s): I50.33 - ACUTE ON CHRONIC DIASTOLIC (CONGESTIVE) HEART FAILURE (7) Pulmonary hypertension Code(s): I27.2 - OTHER SECONDARY PULMONARY HYPERTENSION (8) Ankle pain, right Code(s): M25.571 - PAIN IN RIGHT ANKLE AND JOINTS OF RIGHT FOOT Qualifiers: Chronicity: unspecified Qualified Code(s): M25.571 - Pain in right ankle and joints of right foot (9) Anticoagulated on Coumadin Code(s): Z51.81 - ENCOUNTER FOR THERAPEUTIC DRUG LEVEL MONITORING Z79.01 - [facility] (CURRENT) USE OF ANTICOAGULANTS (10) Stasis ulcer of left lower extremity Code(s): I83.029 - VARICOSE VEINS OF LEFT LOWER EXTREMITY W ULCER OF UNSP SITE (11) Anemia Code(s): D64.9 - ANEMIA, UNSPECIFIED Qualifiers: Anemia type: unspecified type Qualified Code(s): D64.9 - Anemia, unspecified (12) Atrial fib/flutter, transient Code(s): [id number] - (13) Bullae Code(s): R23.8 - OTHER SKIN CHANGES (14) CHF (NYHA class II, ACC/AHA stage C) Code(s): I50.9 - HEART FAILURE, UNSPECIFIED (15) Hematoma following percutaneous transluminal coronary angioplasty Code(s): I97.610 - POSTPROC HEMOR OF A CIRC SYS ORG FOLLOWING A CARDIAC CATH (16) Hyperlipidemia Code(s): E78.5 - HYPERLIPIDEMIA, UNSPECIFIED (17) Hypertension Code(s): I10 - ESSENTIAL (PRIMARY) HYPERTENSION Qualifiers: Hypertension type: essential hypertension Qualified Code(s): I10 - Essential (primary) hypertension (18) Obesity (BMI 30-39.9) Code(s): E66.9 - OBESITY, UNSPECIFIED (19) Pre-syncope Code(s): R55 - SYNCOPE AND COLLAPSE (20) Stasis ulcer of right lower extremity Code(s): I83.019 - VARICOSE VEINS OF RIGHT LOWER EXTREMITY W ULCER OF UNSP SITE (21) Venous insufficiency Code(s): I87.2 - VENOUS INSUFFICIENCY (CHRONIC) (PERIPHERAL) Assessment/Plan af chf due to diastolic dysfunction valvular abnormalities copd htn hld non obstructive cad severe MR TR Plan telemetry iv lasix echo pulm eval cont AC May meed MVR dr. Jennings will discuss rx option with patient and the family
[2017-02-13] MEDS: ACETAMINOPHEN 325 MG TABLET (FP) PO PRN (15:44)
[2017-02-13 17:33] LABS: INR 2.87 (0.82-1.09); PROTHROMBIN TIME (PATIENT) 32.3 SEC (9.98-11.88)
[2017-02-13] MEDS: WARFARIN NA 5 MG TABLET (UD) PO SCH (18:01)
[2017-02-13] MEDS: ATORVASTATIN CA 10 MG TABLET (FP) PO SCH (21:51)
--- NOTE | 2017-02-13 23:01 | PN ---
Progress Note, Physician History of Present Illness: Feels better with less SOB. Denies chest pain, palpitations PND. Has been on nasal O2 and Lasix 40mg IV daily besides her other meds. - Current Medication List Current Medications: Active Medications Acetaminophen (Tylenol -) 650 mg PO Q4H PRN PRN Reason: FEVER OR PAIN Last Admin: 02/13/17 15:44 Dose: 650 mg Atorvastatin Calcium (Lipitor -) 10 mg PO HS [facility] Last Admin: 02/13/17 21:51 Dose: 10 mg Folic Acid (Folic Acid -) 1 mg PO DAILY [facility] Last Admin: 02/13/17 09:24 Dose: 1 mg Furosemide (Lasix Injection -) 40 mg IVPB BID [facility] Last Admin: 02/13/17 21:51 Dose: 40 mg Isosorbide Mononitrate (Imdur -) 30 mg PO DAILY [facility] Last Admin: 02/13/17 09:24 Dose: 30 mg Lactulose (Cephulac (Oral Use)) 20 gm PO DAILY [facility] Last Admin: 02/13/17 09:24 Dose: Not Given Metoprolol Succinate (Toprol Xl -) 50 mg PO BID [facility] Last Admin: 02/13/17 21:51 Dose: 50 mg Potassium Chloride (K-Dur -) 20 meq PO DAILY [facility] Last Admin: 02/13/17 09:24 Dose: 20 meq Ranitidine HCl (Zantac -) 150 mg PO BID [facility] Last Admin: 02/13/17 21:50 Dose: 150 mg Warfarin Sodium (Coumadin -) 5 mg PO DAILY@1800 [facility] Last Admin: 02/13/17 18:01 Dose: 5 mg - Objective Vital Signs: Vital Signs Temperature 97.6 F 02/13/17 20:00 Pulse Rate 80 02/13/17 20:00 Respiratory Rate 18 02/13/17 20:00 Blood Pressure 113/79 02/13/17 20:00 O2 Sat by Pulse Oximetry (%) 98 02/13/17 09:00 Constitutional: Yes: Well Nourished, Calm, Moderate Distress Eyes: Yes: WNL HENT: Yes: WNL Neck: Yes: Supple Cardiovascular: Yes: Pulse Irregular, S2 Respiratory: Yes: Regular, Rales Gastrointestinal: Yes: Normal Bowel Sounds, Soft Genitourinary: Yes: WNL Musculoskeletal: Yes: Joint Stiffness Edema: Yes Edema: LLE: 3+, RLE: 3+ Peripheral Pulses WNL: Yes Integumentary: Yes: Venous Stasis Changes, Other (ulceration left by removal of skin of a blister) Neurological: Yes: Alert, Oriented ...Motor Strength: WNL Psychiatric: Yes: Alert, Oriented Labs: CBC, BMP 02/12/17 00:40 02/12/17 01:20 INR, PTT INR 2.87 (0.82-1.09) H 02/13/17 16:15 - ....Imaging EKG: Report Reviewed, Image Reviewed Problem List - Problems (1) Atrial fibrillation Assessment/Plan: VR well controlled Code(s): I48.91 - UNSPECIFIED ATRIAL FIBRILLATION Qualifiers: Atrial fibrillation type: chronic Qualified Code(s): I48.2 - Chronic atrial fibrillation (2) Congestive heart failure (CHF) Assessment/Plan: Acute on chronic CHF which due to severe MR, LV function is normal by echo Code(s): I50.9 - HEART FAILURE, UNSPECIFIED Qualifiers: Congestive heart failure type: unspecified congestive heart failure type Congestive heart failure chronicity: acute on chronic Qualified Code(s ): I50.9 - Heart failure, unspecified (3) Valvular heart disease Assessment/Plan: Mitral regurgitation is severe Code(s): I38 - ENDOCARDITIS, VALVE UNSPECIFIED (4) Pulmonary hypertension Code(s): I27.2 - OTHER SECONDARY PULMONARY HYPERTENSION (5) Obesity (BMI 30-39.9) Code(s): E66.9 - OBESITY, UNSPECIFIED Assessment/Plan IMP: Acute on chronic CHF, AFIB HTN Pulmonary Hypertension Hyperlipidemia Severe obesity Plan: Case discussed with stock grader Dr. Lara who recommends sending patient to valve center for further evaluation. Discussed with patient at length and will decide whether to proceed with further valve evaluation
[2017-02-14 08:10] LABS: INR 2.3 (0.82-1.09); PROTHROMBIN TIME (PATIENT) 25.7 SEC (9.98-11.88)
[2017-02-14] MEDS: BACITRACIN 15 GM TUBE TOPICAL OINTMENT TP SCH (09:01)
[2017-02-14] MEDS: LACTULOSE 20 GM/30 ML UDC (FOR ORAL USE ONLY) PO SCH (09:02)
[2017-02-14] MEDS: POTASSIUM CHLORIDE TABS 20 MEQ TABLET.ER (FP) PO SCH (09:02)
[2017-02-14] MEDS: FUROSEMIDE 40 MG/4 ML INJECTABLE VIAL IVPB SCH ×2 (09:02→22:01)
[2017-02-14] MEDS: FOLIC ACID 1 MG TABLET (FP) PO SCH (09:02)
[2017-02-14] MEDS: RANITIDINE HCL 150 MG TABLET (FP) PO SCH ×2 (09:02→22:01)
[2017-02-14] MEDS: ISOSORBIDE MONONITRATE 30 MG TAB.SR.24H (FP) PO SCH (09:02)
[2017-02-14] MEDS: METOPROLOL SUCCINATE 50 MG TAB.SR.24H (FP) PO SCH ×2 (09:02→22:01)
--- NOTE | 2017-02-14 10:53 | PN ---
Progress Note, Physician History of Present Illness: 76yo Female patient w/ PmHx: CHF, GERD, Anemia, CAD, HTN, HLD, Venous stasis ulcers, recent hemorrhagic stroke 7 weeks ago, discharged from [facility] yesterday presented to ED with son c/o trouble breathing. Son states patient usually has episodes like this, that last a little while and resolve. He states he called her PCP and was instructed to bring her to ED for evaluation. Patient denies CP, Abd pain, n/v/d, fever, dysuria, hematuria, back pain, or any other complaints at this time. H coronary angiogram 06/2015: luminal irregularities of LAD, LCx, RCA Rt lower extremity angiogram 06/2015: Rt common femoral, right superficial femoral, and right popliteal arteries have 30% stenoses. Medical history: Moderately severe mitral regurgitation HTN obesity Atrial fibrillation hyperlipidemia GERD iron-deficiency anemia - Current Medication List Current Medications: Active Medications Acetaminophen (Tylenol -) 650 mg PO Q4H PRN PRN Reason: FEVER OR PAIN Last Admin: 02/13/17 15:44 Dose: 650 mg Atorvastatin Calcium (Lipitor -) 10 mg PO HS [facility] Last Admin: 02/13/17 21:51 Dose: 10 mg Bacitracin (Bacitracin -) 1 applic TP DAILY [facility] Last Admin: 02/14/17 09:01 Dose: 1 applic Folic Acid (Folic Acid -) 1 mg PO DAILY [facility] Last Admin: 02/14/17 09:02 Dose: 1 mg Furosemide (Lasix Injection -) 40 mg IVPB BID [facility] Last Admin: 02/14/17 09:02 Dose: 40 mg Isosorbide Mononitrate (Imdur -) 30 mg PO DAILY [facility] Last Admin: 02/14/17 09:02 Dose: 30 mg Lactulose (Cephulac (Oral Use)) 20 gm PO DAILY [facility] Last Admin: 02/14/17 09:02 Dose: Not Given Metoprolol Succinate (Toprol Xl -) 50 mg PO BID [facility] Last Admin: 02/14/17 09:02 Dose: 50 mg Potassium Chloride (K-Dur -) 20 meq PO DAILY [facility] Last Admin: 02/14/17 09:02 Dose: 20 meq Ranitidine HCl (Zantac -) 150 mg PO BID [facility] Last Admin: 02/14/17 09:02 Dose: 150 mg Warfarin Sodium (Coumadin -) 5 mg PO DAILY@1800 [facility] Last Admin: 02/13/17 18:01 Dose: 5 mg - Objective Vital Signs: Vital Signs Temperature 98 F 02/14/17 09:00 Pulse Rate 80 02/14/17 09:00 Respiratory Rate 18 02/14/17 09:00 Blood Pressure 142/92 02/14/17 09:00 O2 Sat by Pulse Oximetry (%) 98 02/14/17 09:00 Eyes: Yes: WNL, Conjunctiva Clear, EOM Intact HENT: Yes: WNL, Atraumatic, Normocephalic Neck: Yes: WNL, Supple, Trachea Midline Cardiovascular: Yes: WNL, Regular Rate and Rhythm, Murmur, S1, S2 Respiratory: Yes: WNL, Regular, CTA Bilaterally Gastrointestinal: Yes: WNL, Normal Bowel Sounds Genitourinary: Yes: WNL Musculoskeletal: Yes: WNL Extremities: Yes: WNL Edema: Yes Integumentary: Yes: WNL Neurological: Yes: WNL, Alert, Oriented ...Motor Strength: WNL Psychiatric: Yes: WNL Labs: CBC, BMP 02/12/17 00:40 02/12/17 01:20 INR, PTT INR 2.30 (0.82-1.09) H 02/14/17 05:45 Problem List - Problems (1) Shortness of breath Code(s): R06.02 - SHORTNESS OF BREATH (2) Atrial fibrillation Code(s): I48.91 - UNSPECIFIED ATRIAL FIBRILLATION Qualifiers: Atrial fibrillation type: chronic Qualified Code(s): I48.2 - Chronic atrial fibrillation (3) Congestive heart failure (CHF) Code(s): I50.9 - HEART FAILURE, UNSPECIFIED Qualifiers: Congestive heart failure type: unspecified congestive heart failure type Congestive heart failure chronicity: acute on chronic Qualified Code(s ): I50.9 - Heart failure, unspecified (4) Acute asthmatic bronchitis Code(s): J45.909 - UNSPECIFIED ASTHMA, UNCOMPLICATED (5) Valvular heart disease Code(s): I38 - ENDOCARDITIS, VALVE UNSPECIFIED (6) Acute on chronic diastolic (congestive) heart failure Code(s): I50.33 - ACUTE ON CHRONIC DIASTOLIC (CONGESTIVE) HEART FAILURE (7) Pulmonary hypertension Code(s): I27.2 - OTHER SECONDARY PULMONARY HYPERTENSION (8) Ankle pain, right Code(s): M25.571 - PAIN IN RIGHT ANKLE AND JOINTS OF RIGHT FOOT Qualifiers: Chronicity: unspecified Qualified Code(s): M25.571 - Pain in right ankle and joints of right foot (9) Anticoagulated on Coumadin Code(s): Z51.81 - ENCOUNTER FOR THERAPEUTIC DRUG LEVEL MONITORING Z79.01 - [employer]ING [employer] (CURRENT) USE OF ANTICOAGULANTS (10) Stasis ulcer of left lower extremity Code(s): I83.029 - VARICOSE VEINS OF LEFT LOWER EXTREMITY W ULCER OF UNSP SITE (11) Anemia Code(s): D64.9 - ANEMIA, UNSPECIFIED Qualifiers: Anemia type: unspecified type Qualified Code(s): D64.9 - Anemia, unspecified (12) Atrial fib/flutter, transient Code(s): [id number] - (13) Bullae Code(s): R23.8 - OTHER SKIN CHANGES (14) CHF (NYHA class II, ACC/AHA stage C) Code(s): I50.9 - HEART FAILURE, UNSPECIFIED (15) Hematoma following percutaneous transluminal coronary angioplasty Code(s): I97.610 - POSTPROC HEMOR OF A CIRC SYS ORG FOLLOWING A CARDIAC CATH (16) Hyperlipidemia Code(s): E78.5 - HYPERLIPIDEMIA, UNSPECIFIED (17) Hypertension Code(s): I10 - ESSENTIAL (PRIMARY) HYPERTENSION Qualifiers: Hypertension type: essential hypertension Qualified Code(s): I10 - Essential (primary) hypertension (18) Obesity (BMI 30-39.9) Code(s): E66.9 - OBESITY, UNSPECIFIED (19) Pre-syncope Code(s): R55 - SYNCOPE AND COLLAPSE (20) Stasis ulcer of right lower extremity Code(s): I83.019 - VARICOSE VEINS OF RIGHT LOWER EXTREMITY W ULCER OF UNSP SITE (21) Venous insufficiency Code(s): I87.2 - VENOUS INSUFFICIENCY (CHRONIC) (PERIPHERAL) Assessment/Plan af chf due to diastolic dysfunction valvular abnormalities copd htn hld non obstructive cad severe MR TR Plan telemetry iv lasix echo pulm eval cont AC May meed MVR dr. Jennings will discuss rx option with patient and the family
[2017-02-14] MEDS: WARFARIN NA 5 MG TABLET (UD) PO SCH (17:06)
[2017-02-14] MEDS: ATORVASTATIN CA 10 MG TABLET (FP) PO SCH (22:01)
--- NOTE | 2017-02-14 23:29 | PN ---
Progress Note, Physician History of Present Illness: Feeling better but needs nasal O2. Able to walk around the room without help. Denies chest pain, PND, palpitations. - Current Medication List Current Medications: Active Medications Acetaminophen (Tylenol -) 650 mg PO Q4H PRN PRN Reason: FEVER OR PAIN Last Admin: 02/13/17 15:44 Dose: 650 mg Atorvastatin Calcium (Lipitor -) 10 mg PO HS [facility] Last Admin: 02/14/17 22:01 Dose: 10 mg Bacitracin (Bacitracin -) 1 applic TP DAILY [facility] Last Admin: 02/14/17 09:01 Dose: 1 applic Folic Acid (Folic Acid -) 1 mg PO DAILY [facility] Last Admin: 02/14/17 09:02 Dose: 1 mg Furosemide (Lasix Injection -) 40 mg IVPB BID [facility] Last Admin: 02/14/17 22:01 Dose: 40 mg Isosorbide Mononitrate (Imdur -) 30 mg PO DAILY [facility] Last Admin: 02/14/17 09:02 Dose: 30 mg Lactulose (Cephulac (Oral Use)) 20 gm PO DAILY [facility] Last Admin: 02/14/17 09:02 Dose: Not Given Metoprolol Succinate (Toprol Xl -) 50 mg PO BID [facility] Last Admin: 02/14/17 22:01 Dose: 50 mg Potassium Chloride (K-Dur -) 20 meq PO DAILY [facility] Last Admin: 02/14/17 09:02 Dose: 20 meq Ranitidine HCl (Zantac -) 150 mg PO BID [facility] Last Admin: 02/14/17 22:01 Dose: 150 mg Warfarin Sodium (Coumadin -) 5 mg PO DAILY@1800 [facility] Last Admin: 02/14/17 17:06 Dose: 5 mg - Objective Vital Signs: Vital Signs Temperature 97.9 F 02/14/17 22:00 Pulse Rate 73 02/14/17 22:00 Respiratory Rate 20 02/14/17 22:00 Blood Pressure 141/95 02/14/17 22:00 O2 Sat by Pulse Oximetry (%) 99 02/14/17 20:53 Constitutional: Yes: Mild Distress Eyes: Yes: Conjunctiva Clear, EOM Intact HENT: Yes: WNL Neck: Yes: Supple Cardiovascular: Yes: Pulse Irregular, S2 Respiratory: Yes: Regular, Rales Gastrointestinal: Yes: Normal Bowel Sounds Genitourinary: Yes: WNL Musculoskeletal: Yes: Joint Stiffness Extremities: Yes: Erythema Edema: Yes Edema: LLE: 2+, RLE: 2+ Peripheral Pulses WNL: Yes Integumentary: Yes: Other (lower third anteriorly there is an area about 2.5cm of ulceration from ruptured blister that uses serous fluid) Neurological: Yes: Alert, Oriented ...Motor Strength: WNL Psychiatric: Yes: Alert, Oriented Labs: CBC, BMP 02/12/17 00:40 02/12/17 01:20 INR, PTT INR 2.30 (0.82-1.09) H 02/14/17 05:45 - ....Imaging Cat Scan: Report Reviewed, Image Reviewed Problem List - Problems (1) Atrial fibrillation Assessment/Plan: VR well controlled with Metoprolol Code(s): I48.91 - UNSPECIFIED ATRIAL FIBRILLATION Qualifiers: Atrial fibrillation type: chronic Qualified Code(s): I48.2 - Chronic atrial fibrillation (2) Congestive heart failure (CHF) Assessment/Plan: Has been controlled with increasing dose of lasix and she is able to ambulate without help Code(s): I50.9 - HEART FAILURE, UNSPECIFIED Qualifiers: Congestive heart failure type: unspecified congestive heart failure type Congestive heart failure chronicity: acute on chronic Qualified Code(s ): I50.9 - Heart failure, unspecified (3) Valvular heart disease Code(s): I38 - ENDOCARDITIS, VALVE UNSPECIFIED (4) Acute on chronic diastolic (congestive) heart failure Assessment/Plan: CHF under better control Code(s): I50.33 - ACUTE ON CHRONIC DIASTOLIC (CONGESTIVE) HEART FAILURE (5) Stasis ulcer of left lower extremity Assessment/Plan: serous fluid oozing from the ulceration Code(s): I83.029 - VARICOSE VEINS OF LEFT LOWER EXTREMITY W ULCER OF UNSP SITE (6) Atrial fib/flutter, transient Code(s): [id number] - (7) Hypertension Assessment/Plan: Controlled with Metoprolol and Isosorbide mononitrate Code(s): I10 - ESSENTIAL (PRIMARY) HYPERTENSION Qualifiers: Hypertension type: essential hypertension Assessment/Plan Plan:Will discharge in AM if stable. O2 sat at room is 88% and will need O2 at home Case discussed with early childhood worker and will be arranging evaluation at [facility] for Mitral Valve replacement as patient now agrees to proceed with same
[2017-02-15 02:16] VITALS: TEMP 98.5
[2017-02-15 07:46] LABS: EOSINOPHIL 3.1 % (0-4.5); MCH 31.2 pg (25.7-33.7); MCHC 32.6 g/dl (32.0-36.0); MEAN CELL VOLUME 95.6 fl (80-96); MEAN PLT VOLUME 8.1 fl (7.5-11.1); NEUTROPHILS 53.5 % (42.8-82.8); PLATELET COUNT 179 K/MM3 (134-434); RDW 17.5 % (11.6-15.6); WHITE BLOOD COUNT 4.5 K/mm3 (4.0-10.0)
[2017-02-15 07:49] LABS: INR 2.45 (0.82-1.09); PROTHROMBIN TIME (PATIENT) 27.4 SEC (9.98-11.88)
[2017-02-15 08:11] LABS: ALBUMIN 3.6 g/dl (3.4-5.0); ALK PHOS 60 U/L (45-117); ANION GAP 7 (8-16); BILIRUBIN,TOTAL 1.2 mg/dL (0.2-1.0); CALCIUM 8.6 mg/dL (8.5-10.1); CO2 37 mmol/L (21-32); CREATININE 0.7 mg/dL (0.55-1.02); GLUCOSE,RANDOM 81 mg/dL (74-106); SGOT/AST 13 U/L (15-37); SGPT/ALT 21 U/L (12-78); TOT PROT 6.4 g/dl (6.4-8.2)
--- NOTE | 2017-02-15 08:39 | PN ---
Progress Note, Physician History of Present Illness: 76yo Female patient w/ PmHx: CHF, GERD, Anemia, CAD, HTN, HLD, Venous stasis ulcers, recent hemorrhagic stroke 7 weeks ago, discharged from [facility] yesterday presented to ED with son c/o trouble breathing. Son states patient usually has episodes like this, that last a little while and resolve. He states he called her PCP and was instructed to bring her to ED for evaluation. Patient denies CP, Abd pain, n/v/d, fever, dysuria, hematuria, back pain, or any other complaints at this time. H coronary angiogram 06/2015: luminal irregularities of LAD, LCx, RCA Rt lower extremity angiogram 06/2015: Rt common femoral, right superficial femoral, and right popliteal arteries have 30% stenoses. Medical history: Moderately severe mitral regurgitation HTN obesity Atrial fibrillation hyperlipidemia GERD iron-deficiency anemia - Current Medication List Current Medications: Active Medications Acetaminophen (Tylenol -) 650 mg PO Q4H PRN PRN Reason: FEVER OR PAIN Last Admin: 02/13/17 15:44 Dose: 650 mg Atorvastatin Calcium (Lipitor -) 10 mg PO HS [facility] Last Admin: 02/14/17 22:01 Dose: 10 mg Bacitracin (Bacitracin -) 1 applic TP DAILY [facility] Last Admin: 02/14/17 09:01 Dose: 1 applic Folic Acid (Folic Acid -) 1 mg PO DAILY [facility] Last Admin: 02/14/17 09:02 Dose: 1 mg Furosemide (Lasix Injection -) 40 mg IVPB BID [facility] Last Admin: 02/14/17 22:01 Dose: 40 mg Isosorbide Mononitrate (Imdur -) 30 mg PO DAILY [facility] Last Admin: 02/14/17 09:02 Dose: 30 mg Lactulose (Cephulac (Oral Use)) 20 gm PO DAILY [facility] Last Admin: 02/14/17 09:02 Dose: Not Given Metoprolol Succinate (Toprol Xl -) 50 mg PO BID [facility] Last Admin: 02/14/17 22:01 Dose: 50 mg Potassium Chloride (K-Dur -) 20 meq PO DAILY [facility] Last Admin: 02/14/17 09:02 Dose: 20 meq Ranitidine HCl (Zantac -) 150 mg PO BID [facility] Last Admin: 02/14/17 22:01 Dose: 150 mg Warfarin Sodium (Coumadin -) 5 mg PO DAILY@1800 [facility] Last Admin: 02/14/17 17:06 Dose: 5 mg - Objective Vital Signs: Vital Signs Temperature 98.5 F 02/15/17 02:00 Pulse Rate 72 02/15/17 06:00 Respiratory Rate 20 02/15/17 06:00 Blood Pressure 147/73 02/15/17 06:00 O2 Sat by Pulse Oximetry (%) 99 02/14/17 20:53 Eyes: Yes: WNL, Conjunctiva Clear, EOM Intact HENT: Yes: WNL, Atraumatic, Normocephalic Neck: Yes: WNL, Supple, Trachea Midline Cardiovascular: Yes: WNL, Regular Rate and Rhythm, Murmur, S1, S2 Respiratory: Yes: WNL, Regular, CTA Bilaterally Gastrointestinal: Yes: WNL, Normal Bowel Sounds Genitourinary: Yes: WNL Musculoskeletal: Yes: WNL Extremities: Yes: WNL Edema: Yes Integumentary: Yes: WNL Neurological: Yes: WNL, Alert, Oriented ...Motor Strength: WNL Psychiatric: Yes: WNL Labs: CBC, BMP 02/15/17 06:00 02/15/17 06:00 INR, PTT INR 2.45 (0.82-1.09) H 02/15/17 06:00 Problem List - Problems (1) Shortness of breath Code(s): R06.02 - SHORTNESS OF BREATH (2) Atrial fibrillation Code(s): I48.91 - UNSPECIFIED ATRIAL FIBRILLATION Qualifiers: Atrial fibrillation type: chronic Qualified Code(s): I48.2 - Chronic atrial fibrillation (3) Congestive heart failure (CHF) Code(s): I50.9 - HEART FAILURE, UNSPECIFIED Qualifiers: Congestive heart failure type: unspecified congestive heart failure type Congestive heart failure chronicity: acute on chronic Qualified Code(s ): I50.9 - Heart failure, unspecified (4) Acute asthmatic bronchitis Code(s): J45.909 - UNSPECIFIED ASTHMA, UNCOMPLICATED (5) Valvular heart disease Code(s): I38 - ENDOCARDITIS, VALVE UNSPECIFIED (6) Acute on chronic diastolic (congestive) heart failure Code(s): I50.33 - ACUTE ON CHRONIC DIASTOLIC (CONGESTIVE) HEART FAILURE (7) Pulmonary hypertension Code(s): I27.2 - OTHER SECONDARY PULMONARY HYPERTENSION (8) Ankle pain, right Code(s): M25.571 - PAIN IN RIGHT ANKLE AND JOINTS OF RIGHT FOOT Qualifiers: Chronicity: unspecified Qualified Code(s): M25.571 - Pain in right ankle and joints of right foot (9) Anticoagulated on Coumadin Code(s): Z51.81 - ENCOUNTER FOR THERAPEUTIC DRUG LEVEL MONITORING Z79.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 OF ANTICOAGULANTS (10) Stasis ulcer of left lower extremity Code(s): I83.029 - VARICOSE VEINS OF LEFT LOWER EXTREMITY W ULCER OF UNSP SITE (11) Anemia Code(s): D64.9 - ANEMIA, UNSPECIFIED Qualifiers: Anemia type: unspecified type Qualified Code(s): D64.9 - Anemia, unspecified (12) Atrial fib/flutter, transient Code(s): [id number] - (13) Bullae Code(s): R23.8 - OTHER SKIN CHANGES (14) CHF (NYHA class II, ACC/AHA stage C) Code(s): I50.9 - HEART FAILURE, UNSPECIFIED (15) Hematoma following percutaneous transluminal coronary angioplasty Code(s): I97.610 - POSTPROC HEMOR OF A CIRC SYS ORG FOLLOWING A CARDIAC CATH (16) Hyperlipidemia Code(s): E78.5 - HYPERLIPIDEMIA, UNSPECIFIED (17) Hypertension Code(s): I10 - ESSENTIAL (PRIMARY) HYPERTENSION Qualifiers: Hypertension type: essential hypertension Qualified Code(s): I10 - Essential (primary) hypertension (18) Obesity (BMI 30-39.9) Code(s): E66.9 - OBESITY, UNSPECIFIED (19) Pre-syncope Code(s): R55 - SYNCOPE AND COLLAPSE (20) Stasis ulcer of right lower extremity Code(s): I83.019 - VARICOSE VEINS OF RIGHT LOWER EXTREMITY W ULCER OF UNSP SITE (21) Venous insufficiency Code(s): I87.2 - VENOUS INSUFFICIENCY (CHRONIC) (PERIPHERAL) Assessment/Plan af chf due to diastolic dysfunction valvular abnormalities copd htn hld non obstructive cad severe MR TR Plan telemetry iv lasix echo pulm eval cont AC May meed MVR - outpatient evaluation at [facility] dr. Jennings will discuss rx option with patient and the family
[2017-02-15] MEDS: LACTULOSE 20 GM/30 ML UDC (FOR ORAL USE ONLY) PO SCH (09:03)
[2017-02-15] MEDS: RANITIDINE HCL 150 MG TABLET (FP) PO SCH (09:03)
[2017-02-15] MEDS: FOLIC ACID 1 MG TABLET (FP) PO SCH (09:03)
[2017-02-15] MEDS: POTASSIUM CHLORIDE TABS 20 MEQ TABLET.ER (FP) PO SCH (09:03)
[2017-02-15] MEDS: FUROSEMIDE 40 MG/4 ML INJECTABLE VIAL IVPB SCH (09:03)
[2017-02-15] MEDS: ISOSORBIDE MONONITRATE 30 MG TAB.SR.24H (FP) PO SCH (09:03)
[2017-02-15] MEDS: METOPROLOL SUCCINATE 50 MG TAB.SR.24H (FP) PO SCH (09:03)
[2017-02-15] MEDS: BACITRACIN 15 GM TUBE TOPICAL OINTMENT TP SCH (09:03)
[2017-02-15] MEDS ORDERED: FUROSEMIDE 40 MG TABLET (FP) PO SCH ×3 (10:30→22:00)
[2017-02-15 11:53] VITALS: PULSE 102
[2017-02-15] MEDS: WARFARIN NA 5 MG TABLET (UD) PO SCH (12:18)
[2017-02-15 14:23] VITALS: BP 132/79
== END 2017-02-15 13:03 | disposition home or self-care (01) | DRG 291 ==
LOC: JER 19:17 → JERBED 02-12 00:03 → UNDOADMIN 02-12 00:11 → J4W 02-12 07:32
PROVIDERS: ADMIT Internal Medicine Hematology & Oncology; ATTEND Internal Medicine Hematology & Oncology
DX: I11.0 Hypertensive heart disease with heart failure (principal); J96.01 Acute respiratory failure with hypoxia; I83.209 Varicose veins of unspecified lower extremity with both ulcer of unspecified site and inflammation; I48.92 Unspecified atrial flutter; I50.33 Acute on chronic diastolic (congestive) heart failure; I25.10 Atherosclerotic heart disease of native coronary artery without angina pectoris; E78.5 Hyperlipidemia, unspecified; K21.9 Gastro-esophageal reflux disease without esophagitis; I25.2 Old myocardial infarction; I48.2 Chronic atrial fibrillation; I34.0 Nonrheumatic mitral (valve) insufficiency; D50.8 Other iron deficiency anemias; I27.2 Other secondary pulmonary hypertension; E66.8 Other obesity; Z68.37 Body mass index [BMI] 37.0-37.9, adult; K44.9 Diaphragmatic hernia without obstruction or gangrene; M54.5 Low back pain; J30.89 Other allergic rhinitis; E03.9 Hypothyroidism, unspecified; M19.90 Unspecified osteoarthritis, unspecified site
CPT/HCPCS: 36415; 70450-TC; 71020-TC; 80053; 81003; 81015; 82553; 83735; 83880; 84484; 85025; 85610; 87070; 87186; 87205; 93005; 93010; 93306-TC; 94761; 99283-25

== ENCOUNTER 2017-02-23 17:05 | Inpatient (IN) | payer OTHER, MEDICARE ==
[2017-02-23 17:14] VITALS: BMI 37.0
--- NOTE | 2017-02-23 18:05 | PDOC ---
History of Present Illness - General History Source: Patient Exam Limitations: No Limitations - History of Present Illness Initial Comments: 02/23/17 18:44 The patient is a 76 year old female with a significant past medical history of CHF, GERD, anemia, CAD, HTN, HLD, Venous stasis ulcers, recent hemorrhagic stroke (2 months ago) who presents to the ED with complaints of shortness of breath since yesterday. The patient reports an increase in shortness of breath since yesterday. She states she is unable to lay down secondary to her shortness of breath. She also reports multiple episodes of diffuse tremors throughout her entire body associated with present symptoms. The patient was admitted to the hospital on 02/11/17 for CHF exacerbation and received IV Lasixs. Denies fevers. Denies chest pain or palpitations. Denies nausea, vomiting, or diarrhea. Denies any other symptoms. <Teresa Nava - Last Filed: 02/23/17 21:38> <Shivani Beth - Last Filed: 02/23/17 22:45> - General Chief Complaint: Shortness of Breath Stated Complaint: S.O.B Time Seen by Provider: 02/23/17 17:55 Past History <Teresa Nava - Last Filed: 02/23/17 21:38> - Past Medical History Anemia: Yes Cancer: No Cardiac Disorders: Yes (A-FIB, CAD) CHF: Yes GI Disorders: Yes (gerd, hernia s/p repair) HTN: Yes Hypercholesterolemia: Yes - Surgical History Abdominal Surgery: Yes (HERNIA) Cholecystectomy: Yes - Psycho/Social/Smoking Cessation Hx Anxiety: No Suicidal Ideation: No Smoking History: Never smoked Have you smoked in the past 12 months: No Hx Alcohol Use: No Drug/Substance Use Hx: No Substance Use Type: None Hx Substance Use Treatment: No <Shivani Beth - Last Filed: 02/23/17 22:45> - Past Medical History Allergies/Adverse Reactions: Allergies Allergy/AdvReac Type Severity Reaction Status Date / Time ibuprofen [From Advil] Allergy Unknown Verified 02/23/17 17:11 Penicillins Allergy Verified 02/23/17 17:12 Home Medications: Ambulatory Orders Diltiazem HCl [Diltiazem 24Hr ER] 120 mg PO BID 10/25/13 Lisinopril [Prinivil] 40 mg PO DAILY 07/01/15 Furosemide [Lasix -] 40 mg PO BID 07/23/15 Potassium Chloride [Klor-Con M10] 10 meq PO DAILY 08/31/16 Ferrous Sulfate [Feosol] 325 mg PO BID 09/01/16 Folic Acid 800 mg PO DAILY 09/01/16 Acetaminophen [Tylenol .Regular Strength -] 650 mg PO Q4H PRN #0 tablet Atorvastatin Ca [Lipitor] 10 mg PO HS tablet 09/02/16 Isosorbide Mononitrate [Imdur -] 30 mg PO DAILY 09/02/16 Metoprolol Succinate [Toprol XL -] 25 mg PO DAILY 09/02/16 Warfarin Na [Coumadin -] 2.5 mg PO SuTh@1800 tablet 09/02/16 Warfarin Na [Coumadin -] 5 mg PO MoTuWeFrSa@1800 tablet 09/02/16 Albuterol Sulfate [Proair Respiclick] 90 mcg IH QID 11/02/16 Lactulose (Oral Use) [Cephulac -] 20 gm PO DAILY PRN 11/02/16 Levofloxacin [Levaquin -] 500 mg PO DAILY 11/02/16 Respiratory Specific PMHX - Complaint Specific PMHX Angina: No Bronchitis: No Pneumonia: No Pulmonary Embolus: No TB (Tuberculosis): No <Shivani Beth - Last Filed: 02/23/17 22:45> Review of Systems - Review of Systems Able to Perform ROS?: Yes Comments:: 02/23/17 18:44 CONSTITUTIONAL: No reported: Fever, Chills, Diaphoresis, Generalized Weakness, Malaise, Loss of Appetite HEENT: No reported: Rhinorrhea, Nasal Congestion, Throat Pain, Throat Swelling, Difficulty Swallowing, Mouth Swelling, Ear Pain, Eye Pain, Visual Changes CARDIOVASCULAR: No reported: Chest Pain, Syncope, Palpitations, Irregular Heart Rate, Lightheadedness, Peripheral Edema RESPIRATORY: + shortness of breath No reported: Cough, Orthopnea, Wheezing, Stridor, Hemoptysis GASTROINTESTINAL: No reported: Abdominal pain, Abdominal Distension, Nausea, Vomiting, Diarrhea, Constipation, Melena, Hematochezia GENITOURINARY: No reported: Dysuria, Frequency, Urgency, Hesitancy, Flank Pain, Genital Pain MUSCULOSKELETAL: No reported: Myalgia, Arthralgia, Joint Swelling, Back pain, Neck Pain SKIN: No reported: Rash, Itching, Pallor HEMEATOLOGIC/IMMUNOLOGIC: No reported: Easy Bleeding, Easy Bruising, Lymphadenopathy, Frequent infections ENDOCRINE: No reported: Unexplained Weight Gain, Unexplained Weight Loss, Heat Intolerance , Cold Intolerance NEUROLOGIC: No reported: Headache, Focal Weakness, Paresthesias, Vertigo, Lightheadedness, Unsteady Gait, Seizure, Mental Status Changes, Incontinence PSYCHIATRIC: No reported: Anxiety, Depression All Other Systems: Reviewed and Negative <Teresa Nava - Last Filed: 02/23/17 21:38> *Physical Exam - Vital Signs Last Vital Signs Temp Pulse Resp BP Pulse Ox 98.6 F 81 17 174/95 96 02/23/17 17:12 02/23/17 17:12 02/23/17 17:12 02/23/17 17:12 02/23/17 17:12 - Physical Exam Comments: 02/23/17 18:44 GENERAL: Well developed, well nourished. Awake and alert. No acute distress. HEENT: Normocephalic, atraumatic. PERRLA, EOMI. No conjunctival pallor. Sclera are non- icteric. Moist mucous membranes. Oropharynx is clear. NECK: Supple. Full ROM. No JVD. Carotid pulses 2+ and symmetric, without bruits. No thyromegaly. No lymphadenopathy. CARDIOVASCULAR: + Irregular rate and irregular rhythm. No murmurs, rubs, or gallops. Distal pulses are 2+ and symmetric. PULMONARY: No evidence of respiratory distress. Lungs clear to auscultation bilaterally. No wheezing, rales or rhonchi. ABDOMINAL: Soft. Non-tender. Non-distended. No rebound or guarding. No organomegaly. Normoactive bowel sounds. MUSCULOSKELETAL Normal range of motion at all joints. No bony deformities or tenderness. No CVA tenderness. EXTREMITIES: + non healing circular ulcer 6x4 cm on the anterior left lower extremity. Chronic pitting edema on bilateral lower extremities. Chronic venous stasis on bilateral lower extremities. No cyanosis. No clubbing. No calf tenderness. SKIN: Warm and dry. No rashes. No jaundice. NEUROLOGICAL: Alert, awake, appropriate. Cranial nerves 2-12 intact. No deficits to light touch and temperature in face, upper extremities and lower extremities. No motor deficits in the in face, upper extremities and lower extremities. Normoreflexic in the upper and lower extremities. Normal speech. Toes are down- going bilaterally. Gait is normal without ataxia. PSYCHIATRIC: Cooperative. Good eye contact. Appropriate mood and affect. <Teresa Nava - Last Filed: 02/23/17 21:38> - Vital Signs Last Vital Signs Temp Pulse Resp BP Pulse Ox 98.6 F 81 17 174/95 96 02/23/17 17:12 02/23/17 17:12 02/23/17 17:12 02/23/17 17:12 02/23/17 17:12 <Shivani Beth - Last Filed: 02/23/17 22:45> ED Treatment Course - LABORATORY CBC & Chemistry Diagram: 02/23/17 18:30 02/23/17 18:30 <Teresa Nava - Last Filed: 02/23/17 21:38> - LABORATORY CBC & Chemistry Diagram: 02/23/17 18:30 02/23/17 18:30 <Shivani Beth - Last Filed: 02/23/17 22:45> Medical Decision Making - Medical Decision Making 02/23/17 21:[address] Huertas at 21:37, who is continuous dryout operator helper for Dr. Brasher. <Teresa Nava - Last Filed: 02/23/17 21:38> - Medical Decision Making 02/23/17 18:15 76-year-old female presents with shortness of breath. Please note that she was here recently on February 12 for the same complaint, found to be in CHF. PCP is Dr. Benson Jennings Past medical history significant for atrial fibrillation, severe mitral regurg, CHF. I pretension, hyperlipidemia, pulmonary hypertension, GERD, hiatal hernia , chronic low back pain, osteoarthritis Past surgical history for cholecystectomy, colon colonoscopy, hernia repair. Draining incisional hernia repair. She had resection of the small bowel. Social history -never smoked, lives alone This summer she was admitted to [facility] with intracerebral bleed has been a month and the snf for rehabilitation. She was home for one day and then came to [facility] on February 13. Because of her significant mitral regurg. She's been advised to have a mitral valve replacement and refused. Since then her CHF has become progressively worse 02/23/17 18:25 02/23/17 22:40 Update: SHE IS NOW PURSUING HER SURGERY TO HAVE MITRAL VALVE REPLACEMENT. THEY HAVE CONTACTED DR. Cao AND THEY AND THE PROCESS OF GETTING THIS SET up -tonight she presents with CHF exacerbation and has been given IV Lasix. Cardiac enzymes are negative. I spoke with Dr. Benson Ponce. She'll be admitted to telemetry. I spoke with Benson Huertas who is covering for Kiley and informed him of this patient's admission <Shivani Beth - Last Filed: 02/23/17 22:45> *DC/Admit/Observation/Transfer - Attestations Scribe Attestion: 02/23/17 18:45 Documentation prepared by Teresa Nava, acting as medical research scientist for Shivani Beth MD <Teresa Nava - Last Filed: 02/23/17 21:38> - Discharge Dispostion Admit: Yes <Shivani Beth - Last Filed: 02/23/17 22:45> Diagnosis at time of Disposition: Atrial fib/flutter, transient, Shortness of breath, Congestive heart failure ( CHF), Atrial fibrillation, Valvular heart disease, Stasis ulcer of left lower extremity, Anticoagulated on Coumadin
[2017-02-23 18:47] LABS: BASOPHIL 0.5 % (0-2.0); EOSINOPHIL 0.2 % (0-4.5); MCH 31.7 pg (25.7-33.7); MCHC 33.3 g/dl (32.0-36.0); MEAN CELL VOLUME 95.2 fl (80-96); MEAN PLT VOLUME 8.4 fl (7.5-11.1); NEUTROPHILS 87.5 % (42.8-82.8); PLATELET COUNT 194 K/MM3 (134-434); WHITE BLOOD COUNT 9.7 K/mm3 (4.0-10.0)
[2017-02-23 19:04] LABS: INR 2.47 (0.82-1.09); PROTHROMBIN TIME (PATIENT) 27.7 SEC (9.98-11.88)
[2017-02-23 19:16] LABS: CALCIUM 8.5 mg/dL (8.5-10.1)
[2017-02-23 19:22] LABS: ALBUMIN 3.6 g/dl (3.4-5.0); ALK PHOS 60 U/L (45-117); ANION GAP 9 (8-16); BILIRUBIN,TOTAL 1.3 mg/dL (0.2-1.0); CO2 31 mmol/L (21-32); CREATININE 0.8 mg/dL (0.55-1.02); GLUCOSE,RANDOM 125 mg/dL (74-106); SGOT/AST 21 U/L (15-37); SGPT/ALT 23 U/L (12-78); TOT PROT 6.4 g/dl (6.4-8.2)
[2017-02-23 19:25] LABS: CPK 44 IU/L (26-192); TROPONIN I < 0.02 ng/ml (0.00-0.05)
[2017-02-23] MEDS ORDERED: FUROSEMIDE 40 MG/4 ML INJECTABLE VIAL IVPUSH ONE (21:02)
[2017-02-23] MEDS ORDERED: FUROSEMIDE 40 MG/4 ML INJECTABLE VIAL ONE (21:32)
[2017-02-24 03:07] LABS: URINE APPEARANCE CLEAR; URINE BILIRUBIN NEGATIVE (NEGATIVE); URINE BLOOD 1+ (NEGATIVE); URINE COLOR YELLOW; URINE GLUCOSE (UA) NEGATIVE (NEGATIVE); URINE KETONE NEGATIVE (NEGATIVE); URINE LEUK ESTERASE NEGATIVE (NEGATIVE); URINE NITRITE NEGATIVE (NEGATIVE); URINE UROBILINOGEN 4.0 E.U/dl mg/dL (0.2-1.0)
[2017-02-24 03:19] LABS: URINE PROTEIN 2+ (NEGATIVE)
[2017-02-24 03:22] LABS: URINE HYALINE CAST 3 /lpf; URINE MUCUS RARE; URINE RBC 1 /hpf (0-3); URINE WBC 1 /hpf (3-5)
[2017-02-24] MEDS: FUROSEMIDE 40 MG/4 ML INJECTABLE VIAL IVPUSH SCH ×2 (06:21→13:54)
[2017-02-24 06:22] LABS: INR 2.34 (0.82-1.09); PROTHROMBIN TIME (PATIENT) 26.2 SEC (9.98-11.88)
--- NOTE | 2017-02-24 09:37 | CON.CARD ---
Consult Consult Specialty:: cardiology Reason for Consultation:: hx CHF and valvular ht dz; now with severe shortness of breath - History of Present Illness Chief Complaint: shortness of breath History of Present Illness: The patient is a 76 year old female (trevor Cole) with a significant past medical history of diastolic CHF and significant valvular heart disease (recent admission for CHF; 02/12/17 ECHO showed normal LVEF, mildly dilated LV; severely dilated atriae; severe MR; moderately severe TR and pulmnary HTN; moderate [place]); s/p hemorrhagic CVA two months ago, s/p coronary angiogram at [facility] [place] ?2016 with post-op aneurysmal complication atg LE cath accerss site, GERD, anemia, CAD, HTN, HLD, bilatreral venous stasis ulcers, who presents to the ED with complaints of shortness of breath since yesterday. The patient reports an increase in shortness of breath since yesterday. She states she is unable to lay down secondary to her shortness of breath. She also reports multiple episodes of diffuse tremors throughout her entire body associated with present symptoms. The patient was admitted to the hospital on 02/11/17 for CHF exacerbation and received IV Lasix. Denies fevers. Denies chest pain or palpitations. Denies nausea, vomiting, or diarrhea. Denies any other symptoms. <Teresa Nava - Last Filed: 02/23/17 21:38> - History Source History Provided By: Patient, Medical Record Limitations to Obtaining History: No Limitations - Past Medical History Cardio/Vascular: Yes: AFIB, HTN, Hyperlipdemia, Mitral Insufficiency, Pulmonary Hypertension Gastrointestinal: Yes: GERD, Hiatal Hernia, Other (abdominal pain mainly in upper abd related to intestinal adhesions) Hepatobiliary: Yes: Other (s/p cholecystectomy) Musculoskeletal: Yes: Chronic low back pain, Osteoarthritis ENT: Yes: Allergic Rhinitis Endocrine: Yes: Hypothyroidism - Past Surgical History Past Surgical History: Yes: Cholecystectomy, Colonoscopy, Hernia Repair - Alcohol/Substance Use Hx Alcohol Use: No History of Substance Use: reports: None - Smoking History Smoking history: Never smoked Have you smoked in the past 12 months: No - Social History Usual Living Arrangement: With Spouse ADL: Independent History of Recent Travel: No Home Medications - Allergies Allergies/Adverse Reactions: Allergies Allergy/AdvReac Type Severity Reaction Status Date / Time ibuprofen [From Advil] Allergy Unknown Verified 02/23/17 17:11 Penicillins Allergy Verified 02/23/17 17:12 - Home Medications Home Medications: Ambulatory Orders Diltiazem HCl [Diltiazem 24Hr ER] 120 mg PO BID 10/25/13 Lisinopril [Prinivil] 40 mg PO DAILY 07/01/15 Furosemide [Lasix -] 40 mg PO BID 07/23/15 Potassium Chloride [Klor-Con M10] 10 meq PO DAILY 08/31/16 Ferrous Sulfate [Feosol] 325 mg PO BID 09/01/16 Folic Acid 800 mg PO DAILY 09/01/16 Acetaminophen [Tylenol .Regular Strength -] 650 mg PO Q4H PRN #0 tablet Atorvastatin Ca [Lipitor] 10 mg PO HS tablet 09/02/16 Isosorbide Mononitrate [Imdur -] 30 mg PO DAILY 09/02/16 Metoprolol Succinate [Toprol XL -] 25 mg PO DAILY 09/02/16 Warfarin Na [Coumadin -] 2.5 mg PO SuTh@1800 tablet 09/02/16 Warfarin Na [Coumadin -] 5 mg PO MoTuWeFrSa@1800 tablet 09/02/16 Albuterol Sulfate [Proair Respiclick] 90 mcg IH QID 11/02/16 Lactulose (Oral Use) [Cephulac -] 20 gm PO DAILY PRN 11/02/16 Levofloxacin [Levaquin -] 500 mg PO DAILY 11/02/16 Family Disease History - Family Disease History Family Disease History: Heart Disease: Father, Mother Review of Systems - Review of Systems Constitutional: reports: Weakness Eyes: reports: No Symptoms HENT: reports: No Symptoms Neck: reports: No Symptoms Cardiovascular: reports: Shortness of Breath Respiratory: reports: SOB Integumentary: reports: Other Neurological: reports: Weakness Psychiatric: reports: Anxiety - Risk Factors Known Risk Factors: Yes: Age, Physical Inactivity, Other (severe mitral regurgitation; HFpEF; mod-severe pulmonary HTN) Vital Signs: Vital Signs Temperature 97.8 F 02/24/17 08:32 Pulse Rate 74 02/24/17 08:32 Respiratory Rate 18 02/24/17 08:32 Blood Pressure 136/78 02/24/17 08:32 O2 Sat by Pulse Oximetry (%) 98 02/24/17 07:30 Constitutional: Yes: Anxious Eyes: Yes: WNL HENT: Yes: WNL Neck: Yes: Other (+JVD) Respiratory: Yes: Diminished, Dullness (left base), SOB Gastrointestinal: Yes: Soft, Abdomen, Obese Renal/: No: Anuria JVD: Yes Carotid Bruit: No PMI: Displaced Heart Sounds: Yes: S1 (varies in intensity), S2 Murmur: Yes: Systolic Murmur, Grade 3 Musculoskeletal: Yes: Joint Swelling, Muscle Weakness Extremities: Yes: Cool Edema: Yes Edema: LLE: 3+, RLE: 3+ Peripheral Pulses WNL: No Peripheral Pulses: 1+ Left Femoral, 1+ Right Femoral - Other Data Labs, Other Data: INR, PTT INR 2.34 (0.82-1.09) H 02/24/17 06:00 Problem List - Problems (1) Shortness of breath Assessment/Plan: furosemide prn. Add lisinopril, unless contraindications exist (dilated LV; CHF). Code(s): R06.02 - SHORTNESS OF BREATH (2) Valvular heart disease Assessment/Plan: severe MR, moderately severe TR, moderate [place], with normal LVEF, mildly dilated LV, and severely dilated atriae (02/12/17 ECHO). Pt and family were considering valvular surgery on last admission, and were to have consultation at [facility] as outpatient). For further discussion with pt, family, and Dr. Jennings. Code(s): I38 - ENDOCARDITIS, VALVE UNSPECIFIED (3) Atrial fibrillation Assessment/Plan: INR 2.3 (on warfarin). On metoprolol for HR control. Would add lisinopril (dilated LV), unless contraindications exist. F/u TSH (elevated in 2016). Code(s): I48.91 - UNSPECIFIED ATRIAL FIBRILLATION (4) Acute on chronic diastolic (congestive) heart failure Assessment/Plan: heart failure with preserved LVEF and dilated LV. On metoprolol. Add lisinopril unless contraindications exist (presently with normal GFR; K has required supplements in the past). F/u electrolytes. F/u TSH. Is and OS, daily weight, BUN/Cr. Code(s): I50.33 - ACUTE ON CHRONIC DIASTOLIC (CONGESTIVE) HEART FAILURE (5) Hypertension Assessment/Plan: on metoprolol ER Code(s): I10 - ESSENTIAL (PRIMARY) HYPERTENSION Qualifiers: Hypertension type: essential hypertension Qualified Code(s): I10 - Essential (primary) hypertension (6) Stasis ulcer of lower extremity Code(s): I83.009 - VARICOSE VEINS OF UNSP LOWER EXTREMITY W ULCER OF UNSP SITE
[2017-02-24] MEDS: LISINOPRIL 5 MG TABLET (FP) PO SCH (10:22)
[2017-02-24] MEDS: POTASSIUM CHLORIDE TABS 20 MEQ TABLET.ER (FP) PO SCH (10:22)
[2017-02-24] MEDS: ISOSORBIDE MONONITRATE 30 MG TAB.SR.24H (FP) PO SCH (10:23)
[2017-02-24] MEDS: METOPROLOL SUCCINATE 25 MG TAB.SR.24H (FP) PO SCH ×2 (10:23→21:27)
[2017-02-24 11:40] LABS: MAGNESIUM 1.8 mg/dL (1.8-2.4)
[2017-02-24] MEDS: RANITIDINE HCL 150 MG TABLET (FP) PO SCH ×2 (13:54→21:28)
[2017-02-24 14:18] LABS: THYROID STIMULATING HORMONE 2.17 uIU/ml (0.358-3.74)
--- NOTE | 2017-02-24 15:39 | PN ---
Progress Note, Physician Chief Complaint: Pt OOB in chair; slept relatively well last night for the first time in weeks ( since she was discharged from hospital on similar admission late last month). History of Present Illness: The patient is a 76 year old female (aleksShelby Cole) with a significant past medical history of diastolic CHF and significant valvular heart disease (recent admission for CHF; 02/12/17 ECHO showed normal LVEF, mildly dilated LV; severely dilated atriae; severe MR; moderately severe TR and pulmnary HTN; moderate [place]); s/p hemorrhagic CVA two months ago, s/p coronary angiogram at [facility] ?2016 with post-op aneurysmal complication atg LE cath accerss site, GERD, anemia, CAD, HTN, HLD, bilatreral venous stasis ulcers, who presents to the ED with complaints of shortness of breath since yesterday. The patient reports an increase in shortness of breath since yesterday. She states she is unable to lay down secondary to her shortness of breath. She also reports multiple episodes of diffuse tremors throughout her entire body associated with present symptoms. The patient was admitted to the hospital on 02/11/17 for CHF exacerbation and received IV Lasix. Denies fevers. Denies chest pain or palpitations. Denies nausea, vomiting, or diarrhea. Denies any other symptoms. <Teresa Nava - Last Filed: 02/23/17 21:38> - Current Medication List Current Medications: Active Medications Atorvastatin Calcium (Lipitor -) 10 mg PO HS [facility] Furosemide (Lasix Injection -) 40 mg IVPUSH BID@0600,1400 [facility] Last Admin: 02/24/17 13:54 Dose: 40 mg Isosorbide Mononitrate (Imdur -) 30 mg PO DAILY [facility] Last Admin: 02/24/17 10:23 Dose: 30 mg Lisinopril (Prinivil) 2.5 mg PO DAILY [facility] Last Admin: 02/24/17 10:22 Dose: 2.5 mg Metoprolol Succinate (Toprol Xl -) 25 mg PO BID [facility] Last Admin: 02/24/17 10:23 Dose: 25 mg Potassium Chloride (K-Dur -) 20 meq PO DAILY [facility] Last Admin: 02/24/17 10:22 Dose: 20 meq Ranitidine HCl (Zantac -) 150 mg PO BID [facility] Last Admin: 02/24/17 13:54 Dose: 150 mg Warfarin Sodium (Coumadin -) 5 mg PO DAILY@1800 [facility] - Objective Vital Signs: Vital Signs Temperature 98 F 02/24/17 12:56 Pulse Rate 76 02/24/17 12:56 Respiratory Rate 22 02/24/17 12:56 Blood Pressure 110/71 02/24/17 12:56 O2 Sat by Pulse Oximetry (%) 95 02/24/17 10:04 Constitutional: Yes: Anxious Eyes: Yes: WNL HENT: Yes: WNL Neck: Yes: WNL Cardiovascular: Yes: S1 (varies in intensity), S2 Respiratory: Yes: Diminished, Rales Gastrointestinal: Yes: Soft ...Rectal Exam: Yes: Deferred Genitourinary: No: Anuria Breast(s): Yes: WNL Musculoskeletal: Yes: Joint Stiffness, Muscle Weakness Extremities: Yes: Cool Edema: Yes Edema: LLE: 2+, RLE: 2+ Peripheral Pulses WNL: No Peripheral Pulses: Left Doralis Pedis: 1+, Right Dorsalis Pedis: 1+ Integumentary: Yes: Erythema, Venous Stasis Changes Wound/Incision: Yes: Dressing Dry and Intact Neurological: Yes: Alert, Oriented, Weakness Psychiatric: Yes: Alert, Oriented Labs: INR, PTT INR 2.34 (0.82-1.09) H 02/24/17 06:00 - ....Imaging Chest X-ray: Image Reviewed (enlarged heart; congestive changes) EKG: Image Reviewed (AF) Problem List - Problems (1) Shortness of breath Assessment/Plan: furosemide: on 40 mg bid IVP. Added lisinopril. F/u BUN/Cr, electrolytes serially. Code(s): R06.02 - SHORTNESS OF BREATH (2) Valvular heart disease Assessment/Plan: severe MR, moderately severe TR, moderate [place], with normal LVEF, mildly dilated LV, and severely dilated atriae (02/12/17 ECHO). Pt and family were considering valvular surgery on last admission, and were to have consultationas outpatient). For further discussion with pt, family, and Dr. Jennings. Code(s): I38 - ENDOCARDITIS, VALVE UNSPECIFIED (3) Atrial fibrillation Assessment/Plan: INR 2.3 (on warfarin). On metoprolol for HR control. Also now on lisinopril (dilated LV). TSH WNL (2.17). Code(s): I48.91 - UNSPECIFIED ATRIAL FIBRILLATION (4) Acute on chronic diastolic (congestive) heart failure Assessment/Plan: heart failure with preserved LVEF and dilated LV. On metoprolol; added lisinopril. Is and OS, daily weight, BUN/Cr. Electrolytes WNL; f/u serially. Code(s): I50.33 - ACUTE ON CHRONIC DIASTOLIC (CONGESTIVE) HEART FAILURE (5) Hypertension Assessment/Plan: on metoprolol ER and lisinopril; BP and HR well-controlled. Code(s): I10 - ESSENTIAL (PRIMARY) HYPERTENSION Qualifiers: Hypertension type: essential hypertension Qualified Code(s): I10 - Essential (primary) hypertension (6) Stasis ulcer of lower extremity Code(s): I83.009 - VARICOSE VEINS OF UNSP LOWER EXTREMITY W ULCER OF UNSP SITE
[2017-02-24] MEDS: WARFARIN NA 5 MG TABLET (UD) PO SCH (18:13)
--- NOTE | 2017-02-24 21:15 | HP ---
Admitting History and Physical - Primary Care Physician PCP: Benson Jennings - Admission Chief Complaint: SOB History of Present Illness: Known case of severe MR with AFIB and CHF who was recently discharged home with plans to be referred to valve center became severely dyspneic and was brought to ED and found to be in CHF and was treated with IV Lasix and improved and is now admitted for further management.Her BNP was 8,000. History Source: Patient Limitations to Obtaining History: No Limitations - Past Medical History Cardiovascular: Yes: AFIB, HTN, Hyperlipdemia, Mitral Insufficiency, Pulmonary Hypertension Gastrointestinal: Yes: GERD, Hiatal Hernia, Other (abdominal pain mainly in upper abd related to intestinal adhesions) Hepatobiliary: Yes: Other (s/p cholecystectomy) Musculoskeletal: Yes: Chronic low back pain, Osteoarthritis ENT: Yes: Allergic Rhinitis - Past Surgical History Past Surgical History: Yes: Cholecystectomy, Colonoscopy, Hernia Repair Additional Past Surgical History: Small bowel resected during incisional hernia repair. After cardiac cath developed a huge hematoma in the right groin which was evacuated and did not heal for many weeks - Smoking History Smoking history: Never smoked Have you smoked in the past 12 months: No - Alcohol/Substance Use Hx Alcohol Use: No History of Substance Use: reports: None - Social History ADL: Independent History of Recent Travel: No Home Medications - Allergies Allergies/Adverse Reactions: Allergies Allergy/AdvReac Type Severity Reaction Status Date / Time ibuprofen [From Advil] Allergy Unknown Verified 02/23/17 17:11 Penicillins Allergy Verified 02/23/17 17:12 - Home Medications Home Medications: Ambulatory Orders Diltiazem HCl [Diltiazem 24Hr ER] 120 mg PO BID 10/25/13 Lisinopril [Prinivil] 40 mg PO DAILY 07/01/15 Furosemide [Lasix -] 40 mg PO BID 07/23/15 Potassium Chloride [Klor-Con M10] 10 meq PO DAILY 08/31/16 Ferrous Sulfate [Feosol] 325 mg PO BID 09/01/16 Folic Acid 800 mg PO DAILY 09/01/16 Acetaminophen [Tylenol .Regular Strength -] 650 mg PO Q4H PRN #0 tablet Atorvastatin Ca [Lipitor] 10 mg PO HS tablet 09/02/16 Isosorbide Mononitrate [Imdur -] 30 mg PO DAILY 09/02/16 Metoprolol Succinate [Toprol XL -] 25 mg PO DAILY 09/02/16 Warfarin Na [Coumadin -] 2.5 mg PO SuTh@1800 tablet 09/02/16 Warfarin Na [Coumadin -] 5 mg PO MoTuWeFrSa@1800 tablet 09/02/16 Albuterol Sulfate [Proair Respiclick] 90 mcg IH QID 11/02/16 Lactulose (Oral Use) [Cephulac -] 20 gm PO DAILY PRN 11/02/16 Levofloxacin [Levaquin -] 500 mg PO DAILY 11/02/16 Family Disease History - Family Disease History Family Disease History: Heart Disease: Father, Mother Review of Systems - Review of Systems Constitutional: reports: Weakness Eyes: reports: No Symptoms HENT: reports: No Symptoms Neck: reports: No Symptoms Cardiovascular: reports: Palpitations, Shortness of Breath Respiratory: reports: SOB Gastrointestinal: reports: Abdominal Pain Genitourinary: reports: No Symptoms Breasts: reports: No Symptoms Reported Musculoskeletal: reports: Back Pain, Joint Swelling Integumentary: reports: Wound Neurological: reports: No Symptoms Endocrine: reports: No Symptoms Hematology/Lymphatic: reports: No Symptoms Psychiatric: reports: Anxiety Physical Examination Vital Signs: Vital Signs Temperature 98 F 02/24/17 12:56 Pulse Rate 76 02/24/17 12:56 Respiratory Rate 22 02/24/17 12:56 Blood Pressure 110/71 02/24/17 12:56 O2 Sat by Pulse Oximetry (%) 95 02/24/17 20:08 Constitutional: Yes: Well Nourished, Calm Eyes: Yes: WNL HENT: Yes: WNL Neck: Yes: Supple Cardiovascular: Yes: Pulse Irregular, S2 Respiratory: Yes: Regular, Rales Gastrointestinal: Yes: Normal Bowel Sounds, Soft Renal/: Yes: WNL Musculoskeletal: Yes: Back Pain, Joint Stiffness Edema: Yes Edema: LLE: 4+, RLE: 4+ Peripheral Pulses WNL: Yes Integumentary: Yes: Venous Stasis Changes, Other (there is a area of ulceration due to a blister) Neurological: Yes: Alert, Oriented ...Motor Strength: WNL Psychiatric: Yes: Alert, Oriented Imaging - Results X-ray: Report Reviewed, Image Reviewed Problem List - Problems (1) Valvular heart disease Code(s): I38 - ENDOCARDITIS, VALVE UNSPECIFIED (2) Anticoagulated on Coumadin Code(s): Z51.81 - ENCOUNTER FOR THERAPEUTIC DRUG LEVEL MONITORING Z79.01 - CARE HOME (CURRENT) USE OF ANTICOAGULANTS (3) Atrial fibrillation Assessment/Plan: VR well controlled Code(s): I48.91 - UNSPECIFIED ATRIAL FIBRILLATION (4) Congestive heart failure (CHF) Assessment/Plan: CHF with a BNP of 8000.Agrees to proceed with valve replacement. LV function is preserved Code(s): I50.9 - HEART FAILURE, UNSPECIFIED Qualifiers: (5) Stasis ulcer of lower extremity Code(s): I83.009 - VARICOSE VEINS OF UNSP LOWER EXTREMITY W ULCER OF UNSP SITE (6) Acute on chronic diastolic (congestive) heart failure Code(s): I50.33 - ACUTE ON CHRONIC DIASTOLIC (CONGESTIVE) HEART FAILURE
[2017-02-24] MEDS: LACTULOSE 20 GM/30 ML UDC (FOR ORAL USE ONLY) PO SCH (21:27)
[2017-02-24] MEDS: ATORVASTATIN CA 10 MG TABLET (FP) PO SCH (21:28)
--- NOTE | 2017-02-24 22:02 | EKG ---
Test Reason : Blood Pressure : / mmHG Vent. Rate : 080 BPM Atrial Rate : 090 BPM P-R Int : 000 ms QRS Dur : 098 ms QT Int : 410 ms P-R-T Axes : 000 092 088 degrees QTc Int : 472 ms ATRIAL FIBRILLATION PREMATURE VENTRICULAR COMPLEXES NONSPECIFIC ST AND T WAVE ABNORMALITY WHEN COMPARED WITH ECG OF 23 FEB 2017 T WAVE VARIATION Confirmed by MARCE CLAUDIO MD ([id number]) on 02/24/2017 10:01:59 PM Referred By: Evaristo ESCAMILLA Confirmed By:MARCE CLAUDIO MD
--- NOTE | 2017-02-24 22:13 | EKG ---
Test Reason : Blood Pressure : / mmHG Vent. Rate : 079 BPM Atrial Rate : 082 BPM P-R Int : 000 ms QRS Dur : 090 ms QT Int : 398 ms P-R-T Axes : 000 079 034 degrees QTc Int : 456 ms ATRIAL FIBRILLATION NONSPECIFIC ST AND T WAVE ABNORMALITY ABNORMAL ECG WHEN COMPARED WITH ECG OF 11-FEB-2017 22:30, NO SIGNIFICANT CHANGE WAS FOUND Confirmed by MARCE CLAUDIO MD ([id number]) on 02/24/2017 10:13:27 PM Referred By: Confirmed By:MARCE CLAUDIO MD
[2017-02-25] MEDS: FUROSEMIDE 40 MG/4 ML INJECTABLE VIAL IVPUSH SCH ×2 (05:14→13:17)
[2017-02-25] MEDS: BACITRACIN 15 GM TUBE TOPICAL OINTMENT TP SCH (09:36)
[2017-02-25] MEDS: POTASSIUM CHLORIDE TABS 20 MEQ TABLET.ER (FP) PO SCH (09:38)
[2017-02-25] MEDS: RANITIDINE HCL 150 MG TABLET (FP) PO SCH ×2 (09:38→21:48)
[2017-02-25] MEDS: METOPROLOL SUCCINATE 25 MG TAB.SR.24H (FP) PO SCH ×2 (09:38→21:48)
[2017-02-25] MEDS: ISOSORBIDE MONONITRATE 30 MG TAB.SR.24H (FP) PO SCH (09:38)
[2017-02-25] MEDS: LACTULOSE 20 GM/30 ML UDC (FOR ORAL USE ONLY) PO SCH ×2 (09:38→21:48)
[2017-02-25] MEDS: LISINOPRIL 5 MG TABLET (FP) PO SCH (09:39)
[2017-02-25 19:19] LABS: INR 2.22 (0.82-1.09); PROTHROMBIN TIME (PATIENT) 24.8 SEC (9.98-11.88)
[2017-02-25] MEDS ORDERED: PT OWN MED DRAWER 7, Y5N ONE (20:53)
[2017-02-25] MEDS: WARFARIN NA 5 MG TABLET (UD) PO SCH (20:55)
--- NOTE | 2017-02-25 21:01 | PN ---
Progress Note, Physician Chief Complaint: Pt OOB in chair; slept well again last night. No chest pain; dyspnea on minimal exertion. She worries she will become short of breath again if she goes home. History of Present Illness: The patient is a 76 year old female (trevor Kelsey) with a significant past medical history of diastolic CHF and significant valvular heart disease (recent admission for CHF; 02/12/17 ECHO showed normal LVEF, mildly dilated LV; severely dilated atriae; severe MR; moderately severe TR and pulmnary HTN; moderate NC); s/p hemorrhagic CVA two months ago, s/p coronary angiogram at [facility] ?2016 with post-op aneurysmal complication atg LE cath accerss site, GERD, anemia, CAD, HTN, HLD, bilatreral venous stasis ulcers, who presents to the ED with complaints of shortness of breath since yesterday. The patient reports an increase in shortness of breath since yesterday. She states she is unable to lay down secondary to her shortness of breath. She also reports multiple episodes of diffuse tremors throughout her entire body associated with present symptoms. The patient was admitted to the hospital on 02/11/17 for CHF exacerbation and received IV Lasix. Denies fevers. Denies chest pain or palpitations. Denies nausea, vomiting, or diarrhea. Denies any other symptoms. <Teresa Nava - Last Filed: 02/23/17 21:38> - Current Medication List Current Medications: Active Medications Atorvastatin Calcium (Lipitor -) 10 mg PO HS [facility] Last Admin: 02/24/17 21:28 Dose: 10 mg Bacitracin (Bacitracin -) 1 applic TP DAILY [facility] Last Admin: 02/25/17 09:36 Dose: Not Given Furosemide (Lasix Injection -) 40 mg IVPUSH BID@0600,1400 [facility] Last Admin: 02/25/17 13:17 Dose: 40 mg Isosorbide Mononitrate (Imdur -) 30 mg PO DAILY [facility] Last Admin: 02/25/17 09:38 Dose: 30 mg Lactulose (Cephulac (Oral Use)) 20 gm PO BID [facility] Last Admin: 02/25/17 09:38 Dose: 20 gm Lisinopril (Prinivil) 2.5 mg PO DAILY [facility] Last Admin: 02/25/17 09:39 Dose: 2.5 mg Metoprolol Succinate (Toprol Xl -) 25 mg PO BID [facility] Last Admin: 02/25/17 09:38 Dose: 25 mg Potassium Chloride (K-Dur -) 20 meq PO DAILY [facility] Last Admin: 02/25/17 09:38 Dose: 20 meq Ranitidine HCl (Zantac -) 150 mg PO BID [facility] Last Admin: 02/25/17 09:38 Dose: 150 mg Warfarin Sodium (Coumadin -) 5 mg PO DAILY@1800 [facility] Last Admin: 02/25/17 20:55 Dose: 5 mg - Objective Vital Signs: Vital Signs Temperature 98.8 F 02/25/17 14:05 Pulse Rate 79 02/25/17 14:05 Respiratory Rate 16 02/25/17 14:05 Blood Pressure 132/87 02/25/17 14:05 O2 Sat by Pulse Oximetry (%) 97 02/25/17 10:00 Constitutional: Yes: Anxious Neck: Yes: WNL Cardiovascular: Yes: Pulse Irregular, Murmur (3/6 systolic murmur, LSB-->axilla) Respiratory: Yes: Regular, Diminished Gastrointestinal: Yes: Soft ...Rectal Exam: Yes: Deferred Genitourinary: No: Anuria Breast(s): Yes: WNL Musculoskeletal: Yes: Joint Stiffness, Muscle Weakness Extremities: Yes: Cool Edema: LLE: 2+, RLE: 2+ Peripheral Pulses WNL: No Peripheral Pulses: Left Doralis Pedis: 1+, Right Dorsalis Pedis: 1+ Integumentary: Yes: Erythema, Skin Tear, Venous Stasis Changes Wound/Incision: Yes: Dressing Dry and Intact Neurological: Yes: Alert, Oriented, Weakness Labs: INR, PTT INR 2.22 (0.82-1.09) H 02/25/17 18:06 Abnormal Lab Results 02/25/17 02/25/17 17:00 18:06 INR 2.22 H PTT (Actin FS) 37.9 H D - ....Imaging Other: Image Reviewed (telemetry: AF; controlled VR) Problem List - Problems (1) Shortness of breath Assessment/Plan: furosemide: on 40 mg bid IVP. Added lisinopril. F/u BUN/Cr, electrolytes serially. Code(s): R06.02 - SHORTNESS OF BREATH (2) Valvular heart disease Assessment/Plan: severe MR, moderately severe TR, moderate NC, with normal LVEF, mildly dilated LV, and severely dilated atriae (02/12/17 ECHO). Pt and family were considering valvular surgery on last admission, and were to have consultationas outpatient). For further discussion with pt, family, and Dr. Jennings. Code(s): I38 - ENDOCARDITIS, VALVE UNSPECIFIED (3) Atrial fibrillation Assessment/Plan: INR 2.3 (on warfarin). On metoprolol for HR control. Also now on lisinopril (dilated LV). TSH WNL (2.17). Code(s): I48.91 - UNSPECIFIED ATRIAL FIBRILLATION (4) Acute on chronic diastolic (congestive) heart failure Assessment/Plan: heart failure with preserved LVEF and dilated LV. On metoprolol; added lisinopril. Is and OS, daily weight, BUN/Cr. Electrolytes WNL; f/u serially. Code(s): I50.33 - ACUTE ON CHRONIC DIASTOLIC (CONGESTIVE) HEART FAILURE (5) Hypertension Assessment/Plan: on metoprolol ER and lisinopril; BP and HR well-controlled. Code(s): I10 - ESSENTIAL (PRIMARY) HYPERTENSION Qualifiers: Hypertension type: essential hypertension Qualified Code(s): I10 - Essential (primary) hypertension (6) Stasis ulcer of lower extremity Code(s): I83.009 - VARICOSE VEINS OF UNSP LOWER EXTREMITY W ULCER OF UNSP SITE
--- NOTE | 2017-02-25 21:40 | PN ---
Progress Note, Physician History of Present Illness: Feels better with much improved SOB. Denies chest pain and was able to sleep in bed which she couldn't do at home - Current Medication List Current Medications: Active Medications Atorvastatin Calcium (Lipitor -) 10 mg PO HS [facility] Last Admin: 02/24/17 21:28 Dose: 10 mg Bacitracin (Bacitracin -) 1 applic TP DAILY [facility] Last Admin: 02/25/17 09:36 Dose: Not Given Furosemide (Lasix Injection -) 40 mg IVPUSH BID@0600,1400 [facility] Last Admin: 02/25/17 13:17 Dose: 40 mg Isosorbide Mononitrate (Imdur -) 30 mg PO DAILY [facility] Last Admin: 02/25/17 09:38 Dose: 30 mg Lactulose (Cephulac (Oral Use)) 20 gm PO BID [facility] Last Admin: 02/25/17 09:38 Dose: 20 gm Lisinopril (Prinivil) 2.5 mg PO DAILY [facility] Last Admin: 02/25/17 09:39 Dose: 2.5 mg Metoprolol Succinate (Toprol Xl -) 25 mg PO BID [facility] Last Admin: 02/25/17 09:38 Dose: 25 mg Potassium Chloride (K-Dur -) 20 meq PO DAILY [facility] Last Admin: 02/25/17 09:38 Dose: 20 meq Ranitidine HCl (Zantac -) 150 mg PO BID [facility] Last Admin: 02/25/17 09:38 Dose: 150 mg Warfarin Sodium (Coumadin -) 5 mg PO DAILY@1800 [facility] Last Admin: 02/25/17 20:55 Dose: 5 mg - Objective Vital Signs: Vital Signs Temperature 98.8 F 02/25/17 14:05 Pulse Rate 79 02/25/17 14:05 Respiratory Rate 16 02/25/17 14:05 Blood Pressure 132/87 02/25/17 14:05 O2 Sat by Pulse Oximetry (%) 97 02/25/17 10:00 Constitutional: Yes: Well Nourished, Calm Eyes: Yes: WNL HENT: Yes: WNL Neck: Yes: Supple Cardiovascular: Yes: Pulse Irregular, S2 Respiratory: Yes: Regular, CTA Bilaterally Gastrointestinal: Yes: Normal Bowel Sounds, Soft Genitourinary: Yes: WNL Extremities: Yes: Erythema Edema: Yes Edema: LLE: 4+, RLE: 4+ Peripheral Pulses WNL: Yes Integumentary: Yes: Erythema (of the right ledg due to stasis dermatitis of right leg left leg there is ulceration due to ruptured blister) Neurological: Yes: Alert, Oriented ...Motor Strength: WNL Psychiatric: Yes: Alert, Oriented Labs: INR, PTT INR 2.22 (0.82-1.09) H 02/25/17 18:06 Problem List - Problems (1) Valvular heart disease Code(s): I38 - ENDOCARDITIS, VALVE UNSPECIFIED (2) Atrial fibrillation Assessment/Plan: VR is well controlled at 75 to 84/mt Code(s): I48.91 - UNSPECIFIED ATRIAL FIBRILLATION (3) Congestive heart failure (CHF) Assessment/Plan: Has imrpoved with IV Lasix, nasal O2 and rest Code(s): I50.9 - HEART FAILURE, UNSPECIFIED Qualifiers: (4) Stasis ulcer of lower extremity Code(s): I83.009 - VARICOSE VEINS OF UNSP LOWER EXTREMITY W ULCER OF UNSP SITE (5) Acute on chronic diastolic (congestive) heart failure Code(s): I50.33 - ACUTE ON CHRONIC DIASTOLIC (CONGESTIVE) HEART FAILURE
[2017-02-25] MEDS: ATORVASTATIN CA 10 MG TABLET (FP) PO SCH (21:48)
[2017-02-26] MEDS: FUROSEMIDE 40 MG/4 ML INJECTABLE VIAL IVPUSH SCH ×2 (05:50→13:24)
[2017-02-26 06:38] LABS: ANION GAP 6 (8-16); CALCIUM 8.5 mg/dL (8.5-10.1); CO2 37 mmol/L (21-32); GLUCOSE,RANDOM 87 mg/dL (74-106); MAGNESIUM 1.7 mg/dL (1.8-2.4)
[2017-02-26 06:39] LABS: CREATININE 0.7 mg/dL (0.55-1.02)
[2017-02-26] MEDS ORDERED: ACETAMINOPHEN 325 MG TABLET (FP) PO ONE (07:00)
[2017-02-26] MEDS ORDERED: PT OWN MED DRAWER 7, Y5N ONE (09:09)
[2017-02-26] MEDS: LACTULOSE 20 GM/30 ML UDC (FOR ORAL USE ONLY) PO SCH ×2 (09:12→22:03)
[2017-02-26] MEDS: RANITIDINE HCL 150 MG TABLET (FP) PO SCH ×2 (09:13→22:03)
[2017-02-26] MEDS: ISOSORBIDE MONONITRATE 30 MG TAB.SR.24H (FP) PO SCH (09:13)
[2017-02-26] MEDS: LISINOPRIL 5 MG TABLET (FP) PO SCH (09:13)
[2017-02-26] MEDS: POTASSIUM CHLORIDE TABS 20 MEQ TABLET.ER (FP) PO SCH (09:13)
[2017-02-26] MEDS: METOPROLOL SUCCINATE 25 MG TAB.SR.24H (FP) PO SCH ×2 (09:13→22:04)
[2017-02-26] MEDS: BACITRACIN 15 GM TUBE TOPICAL OINTMENT TP SCH (10:48)
--- NOTE | 2017-02-26 11:02 | PN ---
Progress Note, Physician - Current Medication List Current Medications: Active Medications Atorvastatin Calcium (Lipitor -) 10 mg PO HS [facility] Last Admin: 02/25/17 21:48 Dose: 10 mg Bacitracin (Bacitracin -) 1 applic TP DAILY [facility] Last Admin: 02/26/17 10:48 Dose: Not Given Furosemide (Lasix Injection -) 40 mg IVPUSH BID@0600,1400 [facility] Last Admin: 02/26/17 05:50 Dose: 40 mg Isosorbide Mononitrate (Imdur -) 30 mg PO DAILY [facility] Last Admin: 02/26/17 09:13 Dose: 30 mg Lactulose (Cephulac (Oral Use)) 20 gm PO BID [facility] Last Admin: 02/26/17 09:12 Dose: 20 gm Lisinopril (Prinivil) 2.5 mg PO DAILY [facility] Last Admin: 02/26/17 09:13 Dose: 2.5 mg Metoprolol Succinate (Toprol Xl -) 25 mg PO BID [facility] Last Admin: 02/26/17 09:13 Dose: 25 mg Potassium Chloride (K-Dur -) 20 meq PO DAILY [facility] Last Admin: 02/26/17 09:13 Dose: 20 meq Ranitidine HCl (Zantac -) 150 mg PO BID [facility] Last Admin: 02/26/17 09:13 Dose: 150 mg Warfarin Sodium (Coumadin -) 5 mg PO DAILY@1800 [facility] Last Admin: 02/25/17 20:55 Dose: 5 mg - Objective Vital Signs: Vital Signs Temperature 97.4 F L 02/26/17 10:00 Pulse Rate 71 02/26/17 10:00 Respiratory Rate 15 02/26/17 10:00 Blood Pressure 130/92 02/26/17 10:00 O2 Sat by Pulse Oximetry (%) 100 02/25/17 22:00 Eyes: Yes: WNL, Conjunctiva Clear, EOM Intact HENT: Yes: WNL, Atraumatic, Normocephalic Neck: Yes: WNL, Supple, Trachea Midline Cardiovascular: Yes: Pulse Irregular, Murmur, S1, S2 Respiratory: Yes: WNL, Regular, CTA Bilaterally Gastrointestinal: Yes: WNL, Normal Bowel Sounds Genitourinary: Yes: WNL Musculoskeletal: Yes: WNL Extremities: Yes: WNL Edema: No Integumentary: Yes: WNL Neurological: Yes: WNL, Alert, Oriented ...Motor Strength: WNL Psychiatric: Yes: WNL Labs: CBC, BMP 02/26/17 05:15 INR, PTT INR 2.22 (0.82-1.09) H 02/25/17 18:06 Assessment/Plan - Problems (1) Shortness of breath Assessment/Plan: furosemide: on 40 mg bid IVP. Added lisinopril. F/u BUN/Cr, electrolytes serially. Code(s): R06.02 - SHORTNESS OF BREATH (2) Valvular heart disease Assessment/Plan: severe MR, moderately severe TR, moderate [place], with normal LVEF, mildly dilated LV, and severely dilated atriae (02/12/17 ECHO). Pt and family were considering valvular surgery on last admission, and were to have consultationas outpatient). For further discussion with pt, family, and Dr. Jennings. Code(s): I38 - ENDOCARDITIS, VALVE UNSPECIFIED (3) Atrial fibrillation Assessment/Plan: INR 2.3 (on warfarin). On metoprolol for HR control. Also now on lisinopril (dilated LV). TSH WNL (2.17). Code(s): I48.91 - UNSPECIFIED ATRIAL FIBRILLATION (4) Acute on chronic diastolic (congestive) heart failure Assessment/Plan: heart failure with preserved LVEF and dilated LV. On metoprolol; added lisinopril. Is and OS, daily weight, BUN/Cr. Electrolytes WNL; f/u serially. Code(s): I50.33 - ACUTE ON CHRONIC DIASTOLIC (CONGESTIVE) HEART FAILURE (5) Hypertension Assessment/Plan: on metoprolol ER and lisinopril; BP and HR well-controlled. Code(s): I10 - ESSENTIAL (PRIMARY) HYPERTENSION Qualifiers: Hypertension type: essential hypertension Qualified Code(s): I10 - Essential (primary) hypertension (6) Stasis ulcer of lower extremity Code(s): I83.009 - VARICOSE VEINS OF UNSP LOWER EXTREMITY W ULCER OF UNSP SITE cc time 35 min
[2017-02-26] MEDS: WARFARIN NA 5 MG TABLET (UD) PO SCH (17:23)
--- NOTE | 2017-02-26 21:19 | PN ---
Progress Note, Physician History of Present Illness: Feels better with much less respiratory distress. Was seen by Dr. Hauser meat inspector who will arrange for her transfer for valve replacement. Patient has agreed to the procedure - Current Medication List Current Medications: Active Medications Atorvastatin Calcium (Lipitor -) 10 mg PO HS [facility] [place] Last Admin: 02/25/17 21:48 Dose: 10 mg Bacitracin (Bacitracin -) 1 applic TP DAILY [facility] [place] Last Admin: 02/26/17 10:48 Dose: Not Given Furosemide (Lasix Injection -) 40 mg IVPUSH BID@0600,1400 [facility] [place] Last Admin: 02/26/17 13:24 Dose: 40 mg Isosorbide Mononitrate (Imdur -) 30 mg PO DAILY [facility] [place] Last Admin: 02/26/17 09:13 Dose: 30 mg Lactulose (Cephulac (Oral Use)) 20 gm PO BID [facility] [place] Last Admin: 02/26/17 09:12 Dose: 20 gm Lisinopril (Prinivil) 2.5 mg PO DAILY [facility] [place] Last Admin: 02/26/17 09:13 Dose: 2.5 mg Metoprolol Succinate (Toprol Xl -) 25 mg PO BID [facility] [place] Last Admin: 02/26/17 09:13 Dose: 25 mg Potassium Chloride (K-Dur -) 20 meq PO DAILY [facility] [place] Last Admin: 02/26/17 09:13 Dose: 20 meq Ranitidine HCl (Zantac -) 150 mg PO BID [facility] [place] Last Admin: 02/26/17 09:13 Dose: 150 mg Warfarin Sodium (Coumadin -) 5 mg PO DAILY@1800 [facility] [place] Last Admin: 02/26/17 17:23 Dose: 5 mg - Objective Vital Signs: Vital Signs Temperature 98.9 F 02/26/17 19:23 Pulse Rate 70 02/26/17 13:56 Respiratory Rate 16 02/26/17 20:36 Blood Pressure 114/75 02/26/17 13:30 O2 Sat by Pulse Oximetry (%) 100 02/26/17 20:36 Constitutional: Yes: Well Nourished, Calm, Mild Distress Eyes: Yes: WNL HENT: Yes: WNL Neck: Yes: Supple Cardiovascular: Yes: Pulse Irregular, S1, S2 Respiratory: Yes: Regular, CTA Bilaterally Gastrointestinal: Yes: Normal Bowel Sounds, Soft Genitourinary: Yes: WNL Breast(s): Yes: WNL Musculoskeletal: Yes: Back Pain, Joint Stiffness Extremities: Yes: Erythema Edema: Yes Edema: LLE: 3+, RLE: 3+ Peripheral Pulses WNL: Yes Wound/Incision: Yes: Dressing Dry and Intact Neurological: Yes: Alert, Oriented ...Motor Strength: WNL Psychiatric: Yes: Alert, Oriented Labs: CBC, BMP 02/26/17 05:15 INR, PTT INR 2.22 (0.82-1.09) H 02/25/17 18:06 Problem List - Problems (1) Valvular heart disease Assessment/Plan: Severe mitral regurgitation with CHF Code(s): I38 - ENDOCARDITIS, VALVE UNSPECIFIED (2) Congestive heart failure (CHF) Assessment/Plan: Much improvement with IV Lasix BID, able to get uip without much difficulty Code(s): I50.9 - HEART FAILURE, UNSPECIFIED Qualifiers: (3) Stasis ulcer of lower extremity Code(s): I83.009 - VARICOSE VEINS OF UNSP LOWER EXTREMITY W ULCER OF UNSP SITE (4) Acute on chronic diastolic (congestive) heart failure Code(s): I50.33 - ACUTE ON CHRONIC DIASTOLIC (CONGESTIVE) HEART FAILURE Assessment/Plan Case discussed with who will be discussing case with Cardiothoracic surgeon
[2017-02-26] MEDS: ATORVASTATIN CA 10 MG TABLET (FP) PO SCH (22:04)
[2017-02-27 04:27] LABS: CHOLESTEROL 104 mg/dL (50-200)
[2017-02-27] MEDS ORDERED: ACETAMINOPHEN 325 MG TABLET (FP) PO ONE (05:54)
[2017-02-27 06:13] LABS: INR 2.47 (0.82-1.09); PROTHROMBIN TIME (PATIENT) 27.7 SEC (9.98-11.88)
[2017-02-27 06:34] LABS: CALCIUM 8.3 mg/dL (8.5-10.1)
[2017-02-27 06:39] LABS: ALBUMIN 3.1 g/dl (3.4-5.0); ALK PHOS 49 U/L (45-117); ANION GAP 7 (8-16); BILIRUBIN,TOTAL 0.9 mg/dL (0.2-1.0); CO2 36 mmol/L (21-32); CREATININE 0.6 mg/dL (0.55-1.02); GLUCOSE,RANDOM 97 mg/dL (74-106); SGOT/AST 10 U/L (15-37); SGPT/ALT 17 U/L (12-78); TOT PROT 5.5 g/dl (6.4-8.2)
[2017-02-27] MEDS: FUROSEMIDE 40 MG/4 ML INJECTABLE VIAL IVPUSH SCH ×2 (06:40→13:32)
[2017-02-27] MEDS: BACITRACIN 15 GM TUBE TOPICAL OINTMENT TP SCH (09:19)
[2017-02-27] MEDS: METOPROLOL SUCCINATE 25 MG TAB.SR.24H (FP) PO SCH ×2 (09:20→22:02)
[2017-02-27] MEDS: LACTULOSE 20 GM/30 ML UDC (FOR ORAL USE ONLY) PO SCH ×3 (09:20→22:04)
[2017-02-27] MEDS: ISOSORBIDE MONONITRATE 30 MG TAB.SR.24H (FP) PO SCH (09:20)
[2017-02-27] MEDS: RANITIDINE HCL 150 MG TABLET (FP) PO SCH ×2 (09:20→22:02)
[2017-02-27] MEDS: POTASSIUM CHLORIDE TABS 20 MEQ TABLET.ER (FP) PO SCH (09:20)
[2017-02-27] MEDS: LISINOPRIL 5 MG TABLET (FP) PO SCH (09:20)
[2017-02-27] MEDS: WARFARIN NA 5 MG TABLET (UD) PO SCH (17:20)
[2017-02-27 17:23] VITALS: TEMP 98.4
[2017-02-27] MEDS ORDERED: ACETAMINOPHEN 325 MG TABLET (FP) ONE (18:43)
--- NOTE | 2017-02-27 21:36 | PN ---
Progress Note, Physician History of Present Illness: Feels much better.Denies any chest pain, SOB much improved. No Palpitations. No PND. Has been sleeping flat in bed . - Current Medication List Current Medications: Active Medications Atorvastatin Calcium (Lipitor -) 10 mg PO HS [facility] Last Admin: 02/26/17 22:04 Dose: 10 mg Bacitracin (Bacitracin -) 1 applic TP DAILY [facility] Last Admin: 02/27/17 09:19 Dose: Not Given Furosemide (Lasix Injection -) 40 mg IVPUSH BID@0600,1400 [facility] Last Admin: 02/27/17 13:32 Dose: 40 mg Isosorbide Mononitrate (Imdur -) 30 mg PO DAILY [facility] Last Admin: 02/27/17 09:20 Dose: 30 mg Lactulose (Cephulac (Oral Use)) 20 gm PO BID [facility] Last Admin: 02/27/17 09:20 Dose: 20 gm Lisinopril (Prinivil) 2.5 mg PO DAILY [facility] Last Admin: 02/27/17 09:20 Dose: 2.5 mg Metoprolol Succinate (Toprol Xl -) 25 mg PO BID [facility] Last Admin: 02/27/17 09:20 Dose: 25 mg Potassium Chloride (K-Dur -) 20 meq PO DAILY [facility] Last Admin: 02/27/17 09:20 Dose: 20 meq Ranitidine HCl (Zantac -) 150 mg PO BID [facility] Last Admin: 02/27/17 09:20 Dose: 150 mg Warfarin Sodium (Coumadin -) 5 mg PO DAILY@1800 [facility] Last Admin: 02/27/17 17:20 Dose: 5 mg - Objective Vital Signs: Vital Signs Temperature 98.4 F 02/27/17 17:00 Pulse Rate 65 02/27/17 17:00 Respiratory Rate 18 02/27/17 17:00 Blood Pressure 131/83 02/27/17 17:00 O2 Sat by Pulse Oximetry (%) 100 02/27/17 10:00 Constitutional: Yes: Well Nourished, No Distress, Calm Eyes: Yes: Conjunctiva Clear, EOM Intact HENT: Yes: WNL Neck: Yes: Supple Cardiovascular: Yes: Pulse Irregular, Murmur, S2 Respiratory: Yes: Regular, CTA Bilaterally Gastrointestinal: Yes: Normal Bowel Sounds, Soft Genitourinary: Yes: WNL Musculoskeletal: Yes: Joint Stiffness Extremities: Yes: Erythema Edema: Yes Edema: LLE: 3+, RLE: 3+ Peripheral Pulses WNL: Yes Neurological: Yes: Alert, Oriented ...Motor Strength: WNL Psychiatric: Yes: Alert, Oriented Labs: CBC, BMP 02/27/17 06:00 INR, PTT INR 2.47 (0.82-1.09) H 02/27/17 05:00 Problem List - Problems (1) Valvular heart disease Assessment/Plan: Severe MR and moderate TR. To be transferred to [facility] for valve evaluation and replacement. Code(s): I38 - ENDOCARDITIS, VALVE UNSPECIFIED (2) Congestive heart failure (CHF) Assessment/Plan: Much improved with present management Code(s): I50.9 - HEART FAILURE, UNSPECIFIED Qualifiers: (3) Stasis ulcer of lower extremity Code(s): I83.009 - VARICOSE VEINS OF UNSP LOWER EXTREMITY W ULCER OF UNSP SITE (4) Acute on chronic diastolic (congestive) heart failure Code(s): I50.33 - ACUTE ON CHRONIC DIASTOLIC (CONGESTIVE) HEART FAILURE Assessment/Plan Being transferred to [facility] for evaluation of mitral and tricusoid valves and possible replacement. Case discussed wit ,religion instructor. Case discussed with her son.
[2017-02-27] MEDS: ATORVASTATIN CA 10 MG TABLET (FP) PO SCH (22:02)
[2017-02-27 22:12] VITALS: BP 132/88; PULSE 71
== END 2017-02-27 23:00 | disposition short-term general hospital (02) | DRG 292 ==
LOC: JER 17:05 → JERBED 21:22 → J2W 02-24 08:00
PROVIDERS: ADMIT Internal Medicine Hematology & Oncology; ATTEND Internal Medicine Hematology & Oncology
DX: I11.0 Hypertensive heart disease with heart failure (principal); I38 Endocarditis, valve unspecified; L97.909 Non-pressure chronic ulcer of unspecified part of unspecified lower leg with unspecified severity; K21.9 Gastro-esophageal reflux disease without esophagitis; I50.33 Acute on chronic diastolic (congestive) heart failure; D64.9 Anemia, unspecified; I25.10 Atherosclerotic heart disease of native coronary artery without angina pectoris; E78.5 Hyperlipidemia, unspecified; I48.91 Unspecified atrial fibrillation; I34.0 Nonrheumatic mitral (valve) insufficiency; I27.2 Other secondary pulmonary hypertension; M54.5 Low back pain; K44.9 Diaphragmatic hernia without obstruction or gangrene; I36.1 Nonrheumatic tricuspid (valve) insufficiency; Z86.73 Personal history of transient ischemic attack (TIA), and cerebral infarction without residual deficits; Z88.0 Allergy status to penicillin; I83.009 Varicose veins of unspecified lower extremity with ulcer of unspecified site
CPT/HCPCS: 36415; 71010-TC; 80048; 80053; 80061; 81003; 81015; 83721; 83735; 83880; 84443; 84484; 85025; 85610; 85730; 87086; 93005; 93010; 99285-25

== ENCOUNTER 2022-01-25 15:03 | Emergency (ER) | payer OTHER, MEDICARE ==
[2022-01-25 15:19] VITALS: BP 133/59; PULSE 82; RESP 18; TEMP 98.1; BMI 33.6
[2022-01-25] MEDS ORDERED: ACETAMINOPHEN 325 MG TABLET (FP) PO ONE (16:28)
[2022-01-25] MEDS ORDERED: ACETAMINOPHEN 325 MG TABLET (FP) ONE (16:31)
== END 2022-01-25 18:10 | disposition home or self-care (01) ==
LOC: JER 15:03
DX: M25.522 Pain in left elbow (principal)
CPT/HCPCS: 73070-TC-LT-FY; 82962; 93005; 93010; 99284-25

== ENCOUNTER 2023-04-05 01:02 | Inpatient (IN) | payer OTHER, MEDICARE ==
[2023-04-05 01:43] LABS: VENOUS BASE EXCESS 0.5 mmol/L (-2-2); VENOUS O2 SATURATION 47.9 % (70-80); VENOUS PCO2 56.6 mmHg (38-52); VENOUS PH 7.308 (7.310-7.410)
[2023-04-05 01:49] LABS: BASO % 0.4 % (0-2.0); EOS % 0.6 % (0-4.5); HEMATOCRIT 34.7 % (32.4-45.2); HEMOGLOBIN 11.5 GM/dL (10.7-15.3); LYMPH % 10.2 % (8-40); MCH 28.8 pg (25.7-33.7); MEAN CELL VOLUME 87.2 fl (80-96); MEAN PLT VOLUME 7.3 fl (7.5-11.1); MONO % 5.9 % (3.8-10.2); NEUT % 82.9 % (42.8-82.8); PLATELET COUNT 237 10^3/uL (134-434); RBC 3.98 M/mm3 (3.60-5.2); WHITE BLOOD COUNT 6.4 K/mm3 (4.0-10.0)
[2023-04-05 02:07] LABS: INR 2.84 (0.83-1.09); PROTHROMBIN TIME (PATIENT) 32.6 SEC (9.7-13.0)
[2023-04-05 02:10] LABS: ACTIVATED PTT 41.8 SECONDS (25.2-36.5)
[2023-04-05 02:15] LABS: POTASSIUM 4.2 mmol/L (3.5-5.1)
[2023-04-05 02:17] LABS: CALCIUM 8.8 mg/dL (8.5-10.1)
[2023-04-05 02:18] LABS: ALBUMIN 3.8 g/dl (3.4-5.0); BLOOD UREA NITROGEN 33.4 mg/dL (7-18); MAGNESIUM 1.7 mg/dL (1.8-2.4)
[2023-04-05 02:21] LABS: CREATININE 1.2 mg/dL (0.55-1.3)
[2023-04-05 02:23] LABS: BILIRUBIN,TOTAL 0.6 mg/dL (0.2-1); TOT PROT 7.3 g/dl (6.4-8.2)
[2023-04-05 02:26] LABS: N-TERMINAL BNP 2314.8 pg/ml (5-450)
[2023-04-05] MEDS ORDERED: FUROSEMIDE 40 MG/4 ML INJECTABLE VIAL IVPUSH ONE ×2 (02:36→09:00)
[2023-04-05] MEDS ORDERED: FUROSEMIDE 40 MG/4 ML INJECTABLE VIAL ONE (02:43)
[2023-04-05] MEDS ORDERED: ACETAMINOPHEN 1000 MG/100 ML BAG IVPB PRN (03:23)
[2023-04-05] MEDS ORDERED: ATORVASTATIN CA 10 MG TABLET (FP) PO ONE (04:42)
[2023-04-05 04:48] LABS: URINE APPEARANCE CLEAR; URINE BILIRUBIN NEGATIVE (NEGATIVE); URINE COLOR YELLOW; URINE GLUCOSE (UA) NEGATIVE (NEGATIVE); URINE KETONE NEGATIVE (NEGATIVE); URINE LEUK ESTERASE NEGATIVE (NEGATIVE); URINE NITRITE NEGATIVE (NEGATIVE); URINE PROTEIN NEGATIVE (NEGATIVE); URINE UROBILINOGEN 0.2 mg/dL (0.2-1.0)
[2023-04-05] MEDS ORDERED: MAGNESIUM 1GM/D5W - 1 GM/100 ML IVPB IVPB ONE (04:59)
[2023-04-05] MEDS ORDERED: LYTES/YERBA SANTA 240 ML BOTTLE MM PRN (05:17)
[2023-04-05 07:43] VITALS: BMI 34.2
[2023-04-05] MEDS ORDERED: LACTULOSE 20 GM/30 ML UDC (FOR ORAL USE ONLY) PO PRN (09:49)
[2023-04-05] MEDS: LISINOPRIL 20 MG TABLET PO SCH (10:14)
[2023-04-05] MEDS: FERROUS SO4 300 MG/5 ML ORAL SOLN UNIT DOSE CUPS PO SCH (13:22)
[2023-04-05] MEDS: ISOSORBIDE MONONITRATE 30 MG TAB.SR.24H (FP) PO SCH (13:24)
[2023-04-05] MEDS: FUROSEMIDE 40 MG/4 ML INJECTABLE VIAL IVPUSH SCH (13:25)
[2023-04-05] MEDS: WARFARIN NA 5 MG TABLET PO SCH (21:51)
[2023-04-05] MEDS: ATORVASTATIN CA 10 MG TABLET (FP) PO SCH (21:51)
[2023-04-06] MEDS ORDERED: ACETAMINOPHEN 325 MG TABLET (FP) PO PRN (03:18)
[2023-04-06] MEDS: FUROSEMIDE 40 MG/4 ML INJECTABLE VIAL IVPUSH SCH ×2 (05:58→14:32)
[2023-04-06 08:37] LABS: BASO % 0.4 % (0-2.0); HEMATOCRIT 34.4 % (32.4-45.2); HEMOGLOBIN 11.1 GM/dL (10.7-15.3); LYMPH % 19.9 % (8-40); MCH 28.9 pg (25.7-33.7); MCHC 32.3 g/dl (32.0-36.0); MEAN CELL VOLUME 89.6 fl (80-96); MEAN PLT VOLUME 7.3 fl (7.5-11.1); MONO % 9.8 % (3.8-10.2); NEUT % 67.9 % (42.8-82.8); PLATELET COUNT 216 10^3/uL (134-434); RBC 3.84 M/mm3 (3.60-5.2); RDW 18.8 % (11.6-15.6); WHITE BLOOD COUNT 5.2 K/mm3 (4.0-10.0)
[2023-04-06 08:41] LABS: INR 3.13 (0.83-1.09); PROTHROMBIN TIME (PATIENT) 35.9 SEC (9.7-13.0)
[2023-04-06 08:44] LABS: ACTIVATED PTT 42.1 SECONDS (25.2-36.5)
[2023-04-06 08:50] LABS: POTASSIUM 3.8 mmol/L (3.5-5.1)
[2023-04-06 08:52] LABS: CALCIUM 8.8 mg/dL (8.5-10.1)
[2023-04-06 08:53] LABS: BLOOD UREA NITROGEN 23.5 mg/dL (7-18)
[2023-04-06 08:56] LABS: CREATININE 0.9 mg/dL (0.55-1.3)
[2023-04-06] MEDS: LISINOPRIL 20 MG TABLET PO SCH (09:21)
[2023-04-06] MEDS: ISOSORBIDE MONONITRATE 30 MG TAB.SR.24H (FP) PO SCH (09:21)
[2023-04-06] MEDS: FERROUS SO4 300 MG/5 ML ORAL SOLN UNIT DOSE CUPS PO SCH (09:22)
[2023-04-06] MEDS: AMMONIUM LACTATE 12% LOTION 225 GM BOTTLE TP SCH ×2 (12:11→23:40)
[2023-04-06] MEDS ORDERED: WARFARIN NA 2.5 MG TABLET PO SCH ×2 (18:00→18:15)
[2023-04-06] MEDS: ATORVASTATIN CA 10 MG TABLET (FP) PO SCH (21:21)
[2023-04-07] MEDS: FUROSEMIDE 40 MG/4 ML INJECTABLE VIAL IVPUSH SCH ×2 (06:11→14:50)
[2023-04-07 07:51] LABS: BASO % 0.6 % (0-2.0); EOS % 2.5 % (0-4.5); HEMATOCRIT 32.5 % (32.4-45.2); HEMOGLOBIN 10.9 GM/dL (10.7-15.3); LYMPH % 18.5 % (8-40); MCH 29.5 pg (25.7-33.7); MCHC 33.7 g/dl (32.0-36.0); MEAN CELL VOLUME 87.4 fl (80-96); MEAN PLT VOLUME 7.2 fl (7.5-11.1); MONO % 12.3 % (3.8-10.2); NEUT % 66.1 % (42.8-82.8); PLATELET COUNT 188 10^3/uL (134-434); RBC 3.71 M/mm3 (3.60-5.2); RDW 19.1 % (11.6-15.6); WHITE BLOOD COUNT 4.5 K/mm3 (4.0-10.0)
[2023-04-07 08:02] LABS: POTASSIUM 3.8 mmol/L (3.5-5.1)
[2023-04-07 08:04] LABS: ALBUMIN 3.5 g/dl (3.4-5.0); BLOOD UREA NITROGEN 25.1 mg/dL (7-18); CALCIUM 8.5 mg/dL (8.5-10.1)
[2023-04-07 08:07] LABS: CREATININE 0.9 mg/dL (0.55-1.3)
[2023-04-07 08:09] LABS: BILIRUBIN,TOTAL 0.9 mg/dL (0.2-1); TOT PROT 6.7 g/dl (6.4-8.2)
[2023-04-07] MEDS: LISINOPRIL 20 MG TABLET PO SCH (09:23)
[2023-04-07] MEDS: AMMONIUM LACTATE 12% LOTION 225 GM BOTTLE TP SCH ×2 (09:23→21:24)
[2023-04-07] MEDS: FERROUS SO4 300 MG/5 ML ORAL SOLN UNIT DOSE CUPS PO SCH (09:23)
[2023-04-07] MEDS: ISOSORBIDE MONONITRATE 30 MG TAB.SR.24H (FP) PO SCH (09:23)
[2023-04-07 16:18] LABS: PROTHROMBIN TIME (PATIENT) 47.5 SEC (9.7-13.0)
[2023-04-07 16:47] LABS: INR 4.15 (0.83-1.09)
[2023-04-07] MEDS: WARFARIN NA 5 MG TABLET PO SCH (17:33)
[2023-04-07] MEDS: ATORVASTATIN CA 10 MG TABLET (FP) PO SCH (21:08)
[2023-04-08] MEDS: FUROSEMIDE 40 MG/4 ML INJECTABLE VIAL IVPUSH SCH ×2 (06:43→14:28)
[2023-04-08 07:04] LABS: INR 3.55 (0.83-1.09); PROTHROMBIN TIME (PATIENT) 40.7 SEC (9.7-13.0)
[2023-04-08] MEDS: FERROUS SO4 300 MG/5 ML ORAL SOLN UNIT DOSE CUPS PO SCH (10:42)
[2023-04-08] MEDS: LISINOPRIL 20 MG TABLET PO SCH (10:43)
[2023-04-08] MEDS: ISOSORBIDE MONONITRATE 30 MG TAB.SR.24H (FP) PO SCH (10:43)
[2023-04-08] MEDS: AMMONIUM LACTATE 12% LOTION 225 GM BOTTLE TP SCH ×2 (10:43→21:23)
[2023-04-08] MEDS: dilTIAZem HCL 60 MG TABLET PO SCH ×3 (11:22→21:29)
[2023-04-08] MEDS: ATORVASTATIN CA 10 MG TABLET (FP) PO SCH (21:23)
[2023-04-09] MEDS: FUROSEMIDE 40 MG/4 ML INJECTABLE VIAL IVPUSH SCH ×2 (06:39→13:55)
[2023-04-09 07:11] LABS: INR 2.56 (0.83-1.09); PROTHROMBIN TIME (PATIENT) 29.4 SEC (9.7-13.0)
[2023-04-09 07:24] LABS: POTASSIUM 4.3 mmol/L (3.5-5.1)
[2023-04-09 07:26] LABS: CALCIUM 8.4 mg/dL (8.5-10.1)
[2023-04-09 07:27] LABS: BLOOD UREA NITROGEN 33.4 mg/dL (7-18)
[2023-04-09 07:30] LABS: CREATININE 0.9 mg/dL (0.55-1.3)
[2023-04-09] MEDS: FERROUS SO4 300 MG/5 ML ORAL SOLN UNIT DOSE CUPS PO SCH (10:03)
[2023-04-09] MEDS: ISOSORBIDE MONONITRATE 30 MG TAB.SR.24H (FP) PO SCH (10:03)
[2023-04-09] MEDS: LISINOPRIL 20 MG TABLET PO SCH (10:03)
[2023-04-09] MEDS: dilTIAZem HCL 60 MG TABLET PO SCH ×2 (10:04→21:27)
[2023-04-09] MEDS: AMMONIUM LACTATE 12% LOTION 225 GM BOTTLE TP SCH ×2 (10:04→21:28)
[2023-04-09] MEDS: MAGNESIUM OXIDE 400 MG TABLET (FP) PO SCH ×2 (12:09→21:27)
[2023-04-09] MEDS: ATORVASTATIN CA 10 MG TABLET (FP) PO SCH (21:27)
[2023-04-10] MEDS: FUROSEMIDE 40 MG/4 ML INJECTABLE VIAL IVPUSH SCH (05:58)
[2023-04-10 07:09] LABS: INR 1.96 (0.83-1.09); PROTHROMBIN TIME (PATIENT) 22.6 SEC (9.7-13.0)
[2023-04-10] MEDS: FERROUS SO4 300 MG/5 ML ORAL SOLN UNIT DOSE CUPS PO SCH (08:47)
[2023-04-10] MEDS: LISINOPRIL 20 MG TABLET PO SCH (09:47)
[2023-04-10] MEDS: dilTIAZem HCL 60 MG TABLET PO SCH ×2 (09:47→21:23)
[2023-04-10] MEDS: ISOSORBIDE MONONITRATE 30 MG TAB.SR.24H (FP) PO SCH (09:47)
[2023-04-10] MEDS: MAGNESIUM OXIDE 400 MG TABLET (FP) PO SCH ×2 (09:47→21:20)
[2023-04-10] MEDS: AMMONIUM LACTATE 12% LOTION 225 GM BOTTLE TP SCH ×2 (09:48→21:19)
[2023-04-10] MEDS: FUROSEMIDE 40 MG TABLET (FP) PO SCH (14:15)
[2023-04-10] MEDS ORDERED: RIVAROXABAN 20 MG TABLET PO SCH (18:00)
[2023-04-10] MEDS: ATORVASTATIN CA 10 MG TABLET (FP) PO SCH (21:19)
[2023-04-11 06:06] VITALS: RESP 18
[2023-04-11] MEDS: FUROSEMIDE 40 MG TABLET (FP) PO SCH ×2 (06:09→13:59)
[2023-04-11] MEDS: ISOSORBIDE MONONITRATE 30 MG TAB.SR.24H (FP) PO SCH (10:30)
[2023-04-11] MEDS: MAGNESIUM OXIDE 400 MG TABLET (FP) PO SCH (10:30)
[2023-04-11] MEDS: LISINOPRIL 20 MG TABLET PO SCH (10:30)
[2023-04-11] MEDS: FERROUS SO4 300 MG/5 ML ORAL SOLN UNIT DOSE CUPS PO SCH (10:30)
[2023-04-11] MEDS: dilTIAZem HCL 60 MG TABLET PO SCH (10:30)
[2023-04-11] MEDS: AMMONIUM LACTATE 12% LOTION 225 GM BOTTLE TP SCH (10:36)
[2023-04-11 10:39] VITALS: BP 152/85; PULSE 62; TEMP 98
== END 2023-04-11 15:35 | disposition home or self-care (01) | DRG 291 ==
LOC: JER 01:02 → JERBED 03:10 → J4W 07:01 → OBSVTOIN 04-07 11:14
PROVIDERS: ADMIT Internal Medicine; ATTEND Internal Medicine
DX: I11.0 Hypertensive heart disease with heart failure (principal); I50.33 Acute on chronic diastolic (congestive) heart failure; J96.01 Acute respiratory failure with hypoxia; E87.29 Other acidosis; E03.9 Hypothyroidism, unspecified; E78.5 Hyperlipidemia, unspecified; I27.20 Pulmonary hypertension, unspecified; I25.10 Atherosclerotic heart disease of native coronary artery without angina pectoris; I08.1 Rheumatic disorders of both mitral and tricuspid valves; Z95.2 Presence of prosthetic heart valve; K21.9 Gastro-esophageal reflux disease without esophagitis; I48.91 Unspecified atrial fibrillation
CPT/HCPCS: 0241U-QW; 36415; 71045-TC-FY; 80048; 80053; 80061; 81003; 82803; 83036; 83735; 83880; 84439; 84443; 84484; 85025; 85610; 85730; 87086; 87186; 93005; 93010; 93306-TC; 94761; 97116-GP; 97162-GP; 99285-25; G0378